=== PATIENT | female | born 1940 | race Caucasian/White ===

== ENCOUNTER 2016-08-17 17:18 | Inpatient (IN) | payer OTHER, MEDICARE ==
[2016-08-17] MEDS ORDERED: DIAZEPAM 10 MG/2 ML SYR IVP ONE (18:43)
[2016-08-17 18:52] LABS: % IMMATURE GRANULYOCYTES 0.3 % (0.0-1.1); ABSOLUTE IMMATURE GRANULOCYTES 0.02 10^3/uL (0.00-0.10); ADD DIFF? NO; ADD MORPH? NO; ADD SCAN? NO; ATYPICAL LYMPHOCYTE FLAG 10 (0-99); FRAGMENT RBC FLAG 0 (0-99); HEMATOCRIT 41.6 % (38.0-47.0); HEMOGLOBIN 14.6 g/dL (12.6-16.3); LEFT SHIFT FLG 0 (0-99); LIPEMIA HEMOLYSIS FLAG 90 (0-99); MEAN CELL HEMOGLOBIN 32.6 pg (27.9-34.1); MEAN CELL HEMOGLOBIN CONCENTR. 35.1 g/dL (32.4-36.7); MEAN CELL VOLUME 92.9 fL (81.5-99.8); MEAN PLATELET VOLUME 11.4 fL (8.7-11.7); PLATELET CLUMPS FLAG 0 (0-99); PLATELET COUNT 298 10^3/uL (150-400); RED BLOOD CELL COUNT 4.48 10^6/uL (4.18-5.33); RED CELL DISTRIBUTION WIDTH 13.3 % (11.5-15.2)
--- NOTE | 2016-08-17 18:53 | EDPHY ---
H & P Time Seen by Provider: 08/17/16 17:33 HPI/ROS: CHIEF COMPLAINT: Back pain, radiculopathy HISTORY OF PRESENT ILLNESS: 76-year-old female presents to the emergency department by ambulance with her complaining of ongoing back pain and radicular symptoms in her lower legs. Patient states that she has had ongoing pain in her back for over a year. She has had pain in her thighs and lower legs for the last year as well although this has been getting much worse over last several days. Today she went upstairs to try to take a nap in her room and she was unable to get herself up out of bed. She states that her legs just felt very weak. Her was unable to heel shaver and therefore 911 was called and she was brought into the emergency department by ambulance. She has no bowel or bladder incontinence. She describes no numbness or tingling in her lower legs. She has pain especially when she tries to move around. She denies chest pain or difficulty breathing. No reported trauma. No known activity to cause flare up of pain. She has seen her primary care provider for this and had an outpatient MRI done this past week which revealed multilevel moderate to severe degenerative disc disease and spinal stenosis. REVIEW OF SYSTEMS: Constitutional: No fever, no chills. Eyes: No double or blurry vision. ENT: No sore throat. Respiratory: No cough, no shortness of breath. Cardiac: No chest pain. Gastrointestinal: No abdominal pain, vomiting or diarrhea. Genitourinary: No dysuria. Musculoskeletal: Back pain as above. No neck pain Skin: No rashes. Neurological: No headache. Past Medical/Surgical History: Non-Hodgkin's lymphoma, chronic back pain, spinal stenosis Social History: Smoking Status: Never smoked Physical Exam: General Appearance: Alert, no distress. Eyes: Pupils equal and round. Extraocular motions are all intact. ENT: Mouth: Mucous membranes moist. Respiratory: No wheezing, rhonchi, or rales, lungs are clear to auscultation. Cardiovascular: Regular rate and rhythm. Gastrointestinal: Abdomen is soft and nontender, no masses, no rebound or guarding, bowel sounds normal. No CVA tenderness bilaterally. Neurological: Alert and oriented x 3, cranial nerves II through XII grossly intact Skin: Warm and dry, no rashes. Musculoskeletal: Nontender to palpate along the cervical, thoracic or lumbar spine. Neck is supple. Extremities: Full range of motion and no peripheral edema. Straight leg raise is negative bilaterally. Reflexes are 2+ and equal for lower extremities bilaterally. She has normal and equal strength for the lower extremities. Psychiatric: Patient is oriented X 3, there is no agitation. Constitutional: Initial Vital Signs Temperature (C) 36.4 C 08/17/16 17:26 Heart Rate 83 08/17/16 17:26 Respiratory Rate 18 08/17/16 17:26 Blood Pressure 133/75 H 08/17/16 17:26 O2 Sat (%) 92 08/17/16 17:26 O2 Delivery Mode Room Air Allergies/Adverse Reactions: MARCIANO Inhibitors Allergy (Mild, Verified 07/01/16 18:57) COUGH Sulfa (Sulfonamide Antibiotics) Allergy (Mild, Verified 07/01/16 18:57) Rash phenazopyridine HCl [From Pyridium] Allergy (Unknown, Verified 07/01/16 18:57) nitrofurantoin macrocrystalline [From Macrodantin] Allergy (Unverified 07/01/16 21:02) DOGS/CATS Allergy (Mild, Uncoded 10/02/12 15:19) ITCHY EYES/SCRATCHY THROAT/RUNNY NOSE ENVIRONMENTAL Allergy (Mild, Uncoded 10/02/12 15:19) ITCHY EYES/SCRATCHY THROAT/RUNNY NOSE SEASONAL Allergy (Mild, Uncoded 10/02/12 15:19) ITCHY EYES/RUNNY NOSE/SCRATCHY THROAT opiates Allergy (Uncoded 07/01/16 21:02) Constipation Home Medications: Medication Instructions Recorded Aspirin EC [Aspirin EC 81 mg (*)] 81 mg PO DAILY 07/01/16 Atorvastatin Calcium [Lipitor 40 40 mg PO HS 07/01/16 mg (*)] Chlorpheniramine Maleate 12 mg PO DAILY PRN 07/01/16 Cholecalciferol Vit D3 [Vitamin D3 2,000 units PO DAILY 07/01/16 (*)] Diazepam [Valium 5 MG (*)] 5 mg PO DAILY PRN 07/01/16 Ibuprofen [Motrin (*)] 400 mg PO PRN PRN 07/01/16 Omeprazole 20 mg PO DAILY 07/01/16 Potassium Cl [Klor-Con 20 meq (*)] 20 meq PO BID@,07/01/16 amLODIPine BESYLATE [Norvasc 5 mg 5 mg PO DAILY 07/01/16 (*)] Hydrochlorothiazide [HCTZ (*)] 25 mg PO DAILY #30 tab 07/02/16 Medical Decision Making ED Course/Re-evaluation: 76-year-old female presents to the emergency department by ambulance complaining of ongoing back pain and lumbar radiculopathy. The MRI was reviewed from August 12, 2016 and reveals multilevel moderate to severe degenerative disc disease resulting in moderate spinal stenosis. The patient was given 2.5 mg of IV Valium. The patient presented to the emergency department today because she felt weak in her legs and was unable to get herself up. I recommended admission to the hospital. She will be admitted to Dr. Manohar Alvarado, hospitalist. I also spoke with Dr. Santillan who was on-call for Neurosurgery who will see her in the morning. Differential Diagnosis: Back pain including but not limited to muscular pain, herniated disc, lumbar radiculopathy, spine fracture, intra-abdominal causes and urinary tract infection. - Data Points Laboratory Results: Laboratory Results 08/17/16 17:15 08/17/16 17:15 08/17/16 17:15 WBC 7.36 10^3/uL (3.80-9.50) RBC 4.48 10^6/uL (4.18-5.33) Hgb 14.6 g/dL (12.6-16.3) Hct 41.6 % (38.0-47.0) MCV 92.9 fL (81.5-99.8) MCH 32.6 pg (27.9-34.1) MCHC 35.1 g/dL (32.4-36.7) RDW 13.3 % (11.5-15.2) Plt Count 298 10^3/uL (150-400) MPV 11.4 fL (8.7-11.7) Neut % (Auto) 46.9 % (39.3-74.2) Lymph % (Auto) 44.2 % (15.0-45.0) [place] % (Auto) 6.8 % (4.5-13.0) Eos % (Auto) 0.7 % (0.6-7.6) Baso % (Auto) 1.1 % (0.3-1.7) Nucleat RBC Rel Count 0.0 % (0.0-0.2) Absolute Neuts (auto) 3.46 10^3/uL (1.70-6.50) Absolute Lymphs (auto) 3.25 H 10^3/uL (1.00-3.00) Absolute Monos (auto) 0.50 10^3/uL (0.30-0.80) Absolute Eos (auto) 0.05 10^3/uL (0.03-0.40) Absolute Basos (auto) 0.08 10^3/uL (0.02-0.10) Absolute Nucleated RBC 0.00 10^3/uL (0-0.01) Immature Gran % 0.3 % (0.0-1.1) Immature Gran # 0.02 10^3/uL (0.00-0.10) Sodium 132 L mEq/L (134-144) Potassium 4.5 mEq/L (3.5-5.2) Chloride 93 L mEq/L (97-110) Carbon Dioxide 26 mEq/l (22-31) Anion Gap 13 mEq/L (8-16) BUN 12 mg/dL (7-23) Creatinine 0.6 mg/dL (0.6-1.0) Estimated GFR > 60 Glucose 85 mg/dL (70-100) Calcium 10.1 mg/dL (8.5-10.4) Medications Given: Discontinued Medications Diazepam (Valium Injection) 2.5 mg IVP EDNOW ONE Stop: 08/17/16 18:44 Last Admin: 08/17/16 18:57 Dose: 2.5 mg Departure - Departure Disposition: [facility] Clinical Impression: Lumbar radiculopathy Back pain Qualifiers: Back pain location: low back pain Chronicity: chronic Back pain laterality: unspecified Sciatica presence: with sciatica Sciatica laterality: bilateral sciatica Qualifier Code: (M54.41) Lumbago with sciatica, right side Condition: Good
[2016-08-17 19:01] LABS: ANION GAP 13 mEq/L (8-16); CALCIUM 10.1 mg/dL (8.5-10.4); CARBON DIOXIDE 26 mEq/l (22-31); CHLORIDE 93 mEq/L (97-110); CREATININE 0.6 mg/dL (0.6-1.0); GLOMERULAR FILTRATION RATE > 60; GLUCOSE 85 mg/dL (70-100); POTASSIUM 4.5 mEq/L (3.5-5.2); SODIUM 132 mEq/L (134-144)
[2016-08-17] MEDS ORDERED: ONDANSETRON 4 MG/2 ML VIAL IVP PRN (19:40)
[2016-08-17] MEDS ORDERED: ONDANSETRON DISINTEGRATING 4 MG TAB PO PRN (19:40)
[2016-08-17] MEDS ORDERED: DIAZEPAM 5 MG TAB PO PRN ×2 (19:44→19:49)
[2016-08-17] MEDS ORDERED: CHLORPHENIRAMINE MALEATE 4 MG TAB PO PRN (19:49)
[2016-08-17] MEDS ORDERED: ATORVASTATIN CALCIUM 40 MG TAB PO SCH (21:00)
--- NOTE | 2016-08-17 21:14 | GHP ---
[f rep st] HISTORY AND PHYSICAL DATE OF ADMISSION: 08/17/2016 HISTORY OF PRESENT ILLNESS: The patient is a pleasant 76-year-old female with a history of non-Hodgk in lymphoma that is being followed, as opposed to treatment, who presents with back pain. It sounds like she had progressive back pain over months to years and it is getting worse. Recently, this prom pted her primary care physician to get an MRI done just 5 days ago that showed multilevel disk hernia tion with canal stenosis. Today, she went upstairs to take a nap and she was unable to get up. She felt some generalized weakness and pain in her legs. She denies focal specific weakness. She has no t had saddle anesthesia. She has not had bladder or bowel incontinence. She does not have B symptom s such as weight loss or drenching night sweats. 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 Today, she sought care because after her nap she was really just too painful to get up. She has no n umbness and tingling in her legs. She has pain with moving. She has an appointment with Neurosurger nila in the beginning of September. REVIEW OF SYSTEMS: A complete 10-point review of systems was conducted and was negative, except as n oted in the HPI. PAST MEDICAL HISTORY: Non-Hodgkin lymphoma, allergic rhinitis, hypertension hyperlipidemia. SOCIAL HISTORY: Nonsmoker. Has two to three drinks daily. No history of withdrawal. FAMILY HISTORY: Reviewed and unremarkable. ALLERGIES: MARCIANO inhibitors and sulfa, as well as Pyridium, nitrofurantoin, dogs, cats, environmental, seasonal, and opiates. She claim she is intolerant of all opiates. MEDICATIONS: Home medications list is potassium chloride, omeprazole, ibuprofen, hydrochlorothiazide , Valium (which she takes 2.5 mg of occasionally), vitamin D3, amlodipine, chlorpheniramine, atorvast atin, and aspirin. PHYSICAL EXAM: PRESENTING VITAL SIGNS: Temperature 36.7, blood pressure 131/69, pulse 77, breathing 20 times a minute, 94% on room air. GENERAL: In no acute distress. HEENT: Sclerae anicteric. Or opharynx clear. Mucous membranes are moist. NECK: Supple without lymphadenopathy or JVD. LUNGS: Clear to auscultation bilaterally. HEART: S1, S2. ABDOMEN: Soft, nontender, nondistended. LOWER EXTREMITIES: Without edema. Calves are nontender. SKIN: Without rash. NEUROLOGIC: Grossly nonfo romaine. She has 5/5 strength bilaterally. She has noted a dullness to sensation. Her DTRs are present at the patellae. LABS: White count 7.4, hematocrit 42, platelets are 298,000. Sodium 132, potassium 4.5, chloride 93 , bicarb 26, BUN 12, creatinine 0.6, glucose 85. MRI images are as discussed above. There is no imaging here. I have discussed the case with Danyelle marc. ASSESSMENT AND PLAN: This is a 76-year-old female with small lymphoma and low back pain secondary to disk herniations and spinal stenosis here with intractable pain. 1. Pain. The patient has pretty significant pain impacting her activities of daily living and is be ing admitted for pain control. At this point, there are no concerning neurologic findings and the re cent MRI does shows the possible need for surgery, but no impending emergency. a. I do not suspect that this is secondary to Hodgkin disease is there is no evidence of mass around the spine. b. The patient is intolerant of narcotics. Therefore, I have scheduled Tylenol, scheduled ibuprofen with p.r.n. Valium. c. Neurosurgery will see her in the morning. 2. Lymphoma: This is chronic and followed. 3. Alcohol use. I think the patient has been low to moderate risk for alcohol withdrawal. I will p ut her on p.r.n. benzodiazepine. 4. Prophylaxis. Pharmacologic prophylaxis is indicated if in the hospital longer than 24 hours. DISPOSITION: Observation status. /[id number]/MODL
[2016-08-17] MEDS: ACETAMINOPHEN 500 MG TAB PO SCH (21:31)
[2016-08-17] MEDS: IBUPROFEN 200 MG TAB PO SCH (21:32)
[2016-08-18] MEDS: IBUPROFEN 200 MG TAB PO SCH ×3 (01:20→11:07)
[2016-08-18] MEDS: ACETAMINOPHEN 500 MG TAB PO SCH (04:47)
[2016-08-18] MEDS: POTASSIUM CL 20 MEQ TAB PO SCH ×2 (08:35→12:29)
[2016-08-18 08:36] VITALS: BP 122/58
[2016-08-18 08:59] VITALS: PULSE 67; RESP 15; TEMP 97.5; O2SAT 96
[2016-08-18] MEDS ORDERED: HYDROCHLOROTHIAZIDE 25 MG TAB PO SCH (09:00)
[2016-08-18] MEDS ORDERED: amLODIPine BESYLATE 5 MG TAB PO SCH (09:00)
[2016-08-18] MEDS ORDERED: CHOLECALCIFEROL VIT D3 1,000 UNITS TAB PO SCH (09:00)
[2016-08-18] MEDS ORDERED: PANTOPRAZOLE SODIUM 40 MG TAB PO SCH (09:00)
[2016-08-18] MEDS ORDERED: oxyCODONE IR 5 MG TAB PO PRN (09:37)
[2016-08-18] MEDS ORDERED: DOCUSATE SODIUM 100 MG CAP PO SCH (10:00)
--- NOTE | 2016-08-18 10:30 | GCON ---
[f rep st] CONSULTATION DATE OF CONSULTATION: 08/18/2016 REASON FOR CONSULTATION: Acute on chronic low back pain with lower extremity weakness and pain. HISTORY OF PRESENT ILLNESS: Ms. Lyle is a 76-year-old woman with a history of non-Hodgkin's lymphoma that is been currently being followed as opposed to treatment and presents with acute on chronic low back pain with acute onset of difficulty with ambulation because of weakness in her legs. She has had known history of low back pain, which has been chronic in its nature for several years. She has undergone a previous spinal injections spinal at [facility] 2-3 years ago from which she did quite well. She has been noting worsening low back pain and went to go see her primary care doctor, Dr. Holliday, who ordered an MRI scan of the lumbar spine approximately 5 days ago which demonstrated some scoliosis and multilevel disk degeneration with canal stenosis. The patient states that she went upstairs on August 17 to take a nap and noted that she was unable to get up because of ongoing pain in her legs, as well as weakness in her legs. No associated bowel or bladder incontinence. No saddle anesthesia. She has generalized weakness in her legs. She is very nervous because she is scheduled to go to a trip in the [facility] on August 25 and has a scheduled appointment with Dr. Frankie Delcid in September. She presented to the emergency department because of her concerns of her back pain and lower extremity symptoms and MRI findings. Today, she states that her pain feels somewhat better and her back pain is somewhat better; however, she does have the ongoing chronic low back pain and bilateral generalized weakness and nondermatomal pain in her legs. REVIEW OF SYSTEMS: Complete 10-point review of systems from the patient's intake form were reviewed by myself and significant only for those noted above in the HPI. PAST MEDICAL HISTORY: 1. Non-Hodgkin's lymphoma. 2. Allergic rhinitis. 3. Hypertensive hyperlipidemia. 4. Arthritis. SOCIAL HISTORY: She is a nonsmoker and has approximately 2-3 alcoholic beverages per day. She lives here in the [facility]. FAMILY HISTORY: Negative for any intracranial aneurysms. ALLERGIES: 1. MARCIANO-inhibitors. 2. Sulfa. 3. Pyridium. 4. Nitrofurantoin. 5. Dogs. 6. Cats. 7. Environment. 8. Seasonal. 9. Opioids cause a lot of constipation and sedation. MEDICATIONS PRIOR TO ADMISSION: 1. Potassium chloride. 2. Omeprazole. 3. Ibuprofen. 4. Hydrochlorothiazide. 5. Valium. 6. Vitamin D3. 7. Amlodipine. 8. Chlorpheniramine. 9. Atorvastatin. 10. Aspirin. PHYSICAL EXAMINATION: VITAL SIGNS: Blood pressure is 122/58, heart rate is 67 , respiratory rate is 15. She is satting at 96% on room air temperature is 36.4. GENERAL: The patient is sitting in a chair and has no acute distress. She is quite pleasant and cooperative with the examination, is currently drinking coffee and reading a book. Her affect is appropriate. HEENT: Head is atraumatic, normocephalic. Pupils are equally round and reactive to light bilaterally. Extraocular movements are intact and sclerae are anicteric. Oropharynx is moist. CARDIOVASCULAR AND PULMONARY: Deferred. 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 Sensation: She has intact sensation to light touch throughout all major dermatomes of the bilateral upper and lower extremities throughout. Reflexes are 2+ at the bilateral brachioradialis and patella. Other: She has negative Christiano's and no Babinski. She has negative straight leg raise testing. MEDICAL DECISION-MAKING: White count 7.36, platelets 298, hematocrit 41.6. Sodium 132, potassium 4.5. MRI of the lumbar spine completed without contrast completed on 08/12/2016 on the [facility] PAC system and reviewed by myself demonstrates degenerative disease throughout the lower thoracolumbar spine with an associated scoliosis. There is multilevel moderate to severe degenerative disk disease from T11-T12 through L4-5 with superimposed osteophytes and disk herniations. There is multilevel moderate central canal stenosis, worse at the L3-4 level and moderate to severe bilateral neuroforaminal stenosis, worse on the right at T12-L1, L1-L2, L4-L5, and left L4 -5. ASSESSMENT AND PLAN: Ms. Lyle is a very pleasant 76-year-old woman with a history of non-Hodgkin's lymphoma, who presents with acute on chronic worsening lumbar back pain and generalized weakness and pain in her lower extremities in a nondermatomal pattern. She has evidence of scoliosis throughout her thoracolumbar spine with no evidence of severe central stenosis, but moderate stenosis, worse at the L3-4 level and foraminal stenosis at multiple levels throughout. At this point, the patient's neurological exam is essentially fairly normal. She appears to be somewhat anxious about her acute onset of weakness in her legs and difficulty with moving; however, she is also scheduled to take [place] cruise and wants to ensure that her pain is well controlled prior to going on this trip. She has had a prior injection with [facility] approximately 3 years ago from which she did quite well and at this point, I have explained to her that nonoperative interventions are probably the best way to initiate her treatment as there are no acute concerning findings on MRI scan to want any type of urgent surgical intervention. I recommended a trial of opiates and therefore, have ordered 2.5 mg of oxycodone to be tried for the patient. She is concerned about constipation therefore, I have also added MiraLAX and some Colace. She will try these medications while in the hospital and if this improves, then she can go home with this low dose medication for pain control. I have also encouraged that she call [facility] again for a redo consultation to see if she is a candidate for another spinal injection. She will then call our office and change the clinic appointment to see myself rather than Dr. Delcid sometime in September for followup after she has had the injection. All of her questions were answered to her satisfaction. She has been seen by PT /OT Therapy and cleared per the nursing staff. If her pain is well controlled and she is doing quite well, she can likely be discharged with outpatient followup. I will order AP lateral flexion extension lumbar spine x-rays however , prior to her discharge as her last lumbar spine x-rays were completed in 2011 , and we would like to revisit the degree of scoliosis that she has present. Thank you for this consultation. Will continue to follow along with your patient while she is in the hospital. /[id number]/MODL MTDD
--- NOTE | 2016-08-18 12:44 | DX ---
Lumbar Spine, 4 Views, at 11:15 a.m. Clinical History: 76-year-old female with low back pain and a known scoliosis with some radicular sym ptoms. Comparison Studies: Lumbar spine radiographs dated January 29, 2012, and MR imaging of the lumbar spine dated August 12, 2016. Findings: Since 2011, there has been progression in the biphasic thoracolumbar scoliosis. There is a levothoracolumbar junction component measuring 26 degrees, and a lower dextrolumbar component measur ing 18 degrees. There is slight left lateral offset of L2 above L3, and slight right lateral offset o f L3 above L4. There moderate T11-T12 degenerative disk space narrowing, and severe degenerative disk space narrowing from T12-L1 through L5-S1. There is no facet malalignment, although there is facet h ypertrophy. There are no pars interarticularis defects appreciated. There is mural calcification of t he abdominal aorta, normal in size, measuring 18 mm in diameter. The patient has bilateral hip arthro plasties, although the left hip arthroplasty is the only visible one currently on the included films. Impression: Biphasic thoracolumbar scoliosis with multilevel advanced degenerative changes, as john led above and described as well on recent MR imaging.
--- NOTE | 2016-08-18 14:31 | GDS ---
[f rep st] DISCHARGE SUMMARY DISCHARGE DIAGNOSES: 1. Vfmnh-uz-kycapey back pain. 2. History of Hodgkin lymphoma. 3. Chronic alcohol use. CONSULTATIONS: Dr. Santillan of Neurosurgery. STUDIES AND PROCEDURES: Lumbar spine x-ray. PHYSICAL EXAM: GENERAL: The patient is alert and oriented, in no acute distress. VITAL SIGNS: Afe brile at 36.4 pulse 67, respiratory rate 15, blood pressure is 122/58, she is saturating greater than 90% on room air. I have seen and evaluated the patient on the day of discharge. HOSPITAL COURSE: Ms. Lyle is a 76-year-old female who presented to the emergency room with complai nts of back pain. She was evaluated and diagnosed with: 1. [id number] back pain. During this hospitalization, [facility] as well as a lumbar spine x-ray. The patient does not have any surgical intervention need s at this time. She will continue treatment with supportive management and will follow up in the out patient setting with the neurosurgeon of her choice. 2. History of Hodgkin lymphoma. This is stable and continue followup in the outpatient setting. 3. Chronic alcohol use. The patient does not have any signs of withdrawal or needing supportive man agement. DISPOSITION: Ms. Lyle will be discharged home independently. FOLLOWUP: Will be with the neurosurgeon of her choice, as well as her primary care physician, Dr. Daphnie Holliday. DISCHARGE MEDICATIONS: I have provided the patient a prescription for oxycodone IR 2.5 mg every 4 ho urs as needed for pain. /[id number]/MODL
[2016-08-19] MEDS ORDERED: POLYETHYLENE GLYCOL 3350 17 GM PKT PO SCH (09:00)
== END 2016-08-18 13:26 | disposition home or self-care (01) | DRG 552 ==
LOC: EDUNIT# → F3N 19:36
PROVIDERS: ADMIT Internal Medicine; ATTEND Internal Medicine
DX: M51.15 Intervertebral disc disorders with radiculopathy, thoracolumbar region (principal); M41.9 Scoliosis, unspecified; C85.90 Non-Hodgkin lymphoma, unspecified, unspecified site; I10 Essential (primary) hypertension; E78.5 Hyperlipidemia, unspecified
CPT/HCPCS: 96374; 97161-GP; 97165-GO; G8978-GP-CI; G8979-GP-CI; G8987-GO-CI; G8988-GO-CH; G8989-GO-CH

== ENCOUNTER 2016-09-10 17:14 | Inpatient (IN) | payer OTHER, MEDICARE ==
[2016-09-10] MEDS ORDERED: NS 500 ML IV ONE (17:38)
[2016-09-10] MEDS ORDERED: LORazepam 2 MG/ML INJ IVP ONE (17:39)
--- NOTE | 2016-09-10 17:45 | EDPHY ---
H & P Time Seen by Provider: 09/10/16 17:27 HPI/ROS: HPI Numbness in fingers, degenerative cervical spine. 76-year-old female by private vehicle with her . This patient was seen by her primary care physician, Dr. Holliday, at the [facility] earlier today with complaint of numbness in all of her digits in both hands. She denies weakness in her hands. She reports that this has been going on since early August. Dr. Holliday ordered an MRI of the cervical spine, this showed severe cervical canal stenosis. He called the patient and told her to come to the emergency department for a neurosurgical consult. ROS: Constitutional: No fever, no chills. No weakness. Eyes: No discharge. No changes in vision. ENT: No sore throat. No nasal congestion or rhinorrhea. Respiratory: No cough. No shortness of breath. Cardiac: No chest pain, no palpitations. Gastrointestinal: No abdominal pain, no vomiting, no diarrhea. Genitourinary: No hematuria. No dysuria or increased frequency with urination. Musculoskeletal: No back pain. No neck pain. No myalgias or arthralgias. Skin: No rashes. Neurological: No headache. As above. Past medical history: History of Hodgkin's lymphoma, anxiety, chronic daily alcohol use, acute on chronic back pain, hypertension, hyperlipidemia. As above. Social history: Nonsmoker. As above. Here with her . Physical Exam: General Appearance: Alert, no distress. This patient is responding to questions appropriately and in full sentences. This patient appears well- hydrated and well-nourished. Eyes: Pupils equal and round no pallor or injection. No lid edema, erythema or injection. Respiratory: There are no retractions, lungs are clear to auscultation with good air movement bilaterally. Cardiovascular: Regular rate and rhythm. No murmur. Gastrointestinal: Abdomen is soft and nontender, no masses, bowel sounds normal. No focal tenderness at McBurney's point. No Parra sign. Neurological: Motor sensory function is grossly intact. Vague loss of light touch sensation in all digits in both hands. Axillary, median, radial and ulnar nerve motor function intact. Cranial nerves are normal. Gait is normal. Skin: Warm and dry, no rashes. Musculoskeletal: Neck is supple and nontender. Extremities are symmetrical. All joints range without pain or impingement. Psychiatric: No agitation. No depression. Database: EKG: Imaging: Procedures: Emergency department course: IV was placed. She was started on IV normal saline with 500 cc to be given over 1 hour. She was given 1 mg of IV Ativan for anxiety initially. Results of her MRI of cervical spine from today were reviewed, severe degenerative changes noted as well as severe central canal stenosis at C2-C3, C3-C4, C5-C6 with severe cord compression and possible early edema at C3-C4. 6:10 p.m., spoke with on-call spinal surgeon Dr. Frankie Delcid. He reviewed the patient's cervical spine MRIs. He examined the patient in the emergency department. Plan is for admission to the hospitalist service and he will take her to the OR in the morning for decompression of her spinal cord. This plan was discussed with the patient and her . All of their questions were answered. 6:20 p.m., spoke with on-call hospitalist Dr. Daniel Alvarado. Case discussed in detail with him. He accepts the patient for admission. Differential Diagnosis: The differential diagnosis on this patient includes but is not limited to degenerative spinal disease. This represents a partial list of diagnoses considered. These considerations are based on history, physical exam, past history, reassessment and diagnostic testing. Smoking Status: Never smoked Constitutional: Initial Vital Signs Temperature (C) 36.4 C 09/10/16 17:16 Heart Rate 81 09/10/16 17:16 Respiratory Rate 20 09/10/16 17:16 Blood Pressure 134/71 H 09/10/16 17:16 O2 Sat (%) 97 09/10/16 17:16 O2 Delivery Mode Room Air Allergies/Adverse Reactions: MARCIANO Inhibitors Allergy (Mild, Verified 07/01/16 18:57) COUGH Sulfa (Sulfonamide Antibiotics) Allergy (Mild, Verified 07/01/16 18:57) Rash phenazopyridine HCl [From Pyridium] Allergy (Unknown, Verified 07/01/16 18:57) nitrofurantoin macrocrystalline [From Macrodantin] Allergy (Verified 08/17/16 19 :53) opiates Allergy (Intermediate, Uncoded 08/17/16 19:53) Constipation DOGS/CATS Allergy (Mild, Uncoded 08/17/16 19:53) ITCHY EYES/SCRATCHY THROAT/RUNNY NOSE ENVIRONMENTAL Allergy (Mild, Uncoded 08/17/16 19:53) ITCHY EYES/SCRATCHY THROAT/RUNNY NOSE SEASONAL Allergy (Mild, Uncoded 08/17/16 19:53) ITCHY EYES/RUNNY NOSE/SCRATCHY THROAT Home Medications: Medication Instructions Recorded Aspirin EC [Aspirin EC 81 mg (*)] 81 mg PO DAILY 07/01/16 Atorvastatin Calcium [Lipitor 40 40 mg PO HS 07/01/16 mg (*)] Chlorpheniramine Maleate 12 mg PO DAILY PRN 07/01/16 Cholecalciferol Vit D3 [Vitamin D3 2,000 units PO DAILY 07/01/16 (*)] Diazepam [Valium 5 MG (*)] 5 mg PO DAILY PRN 07/01/16 Ibuprofen [Motrin (*)] 400 mg PO PRN PRN 07/01/16 Omeprazole 20 mg PO DAILY 07/01/16 Potassium Cl [Klor-Con 20 meq (*)] 20 meq PO BID@09,12 07/01/16 amLODIPine BESYLATE [Norvasc 5 mg 5 mg PO DAILY 07/01/16 (*)] Hydrochlorothiazide [HCTZ (*)] 25 mg PO DAILY #30 tab 07/02/16 Acetaminophen [Tylenol ES 500 mg 1,000 mg PO Q8 #0 tab 08/18/16 (*)] Medical Decision Making - Data Points Medications Given: Discontinued Medications Sodium Chloride (Ns) 500 mls @ 0 mls/hr IV ONCE ONE PRN Reason: Wide Open Stop: 09/10/16 17:39 Last Admin: 09/10/16 18:00 Dose: 500 mls Sodium Chloride (Ns) 1,000 mls @ 75 mls/hr IV CONT ABEL Stop: 03/10/17 07:14 Last Admin: 09/11/16 07:05 Dose: 1,000 mls Lorazepam (Ativan Injection) 1 mg IVP EDNOW ONE Stop: 09/10/16 17:40 Last Admin: 09/10/16 18:00 Dose: 1 mg Departure - Departure Disposition: [facility] Acute Clinical Impression: Cervical spine degeneration, Spinal stenosis of cervical region
[2016-09-10 18:51] LABS: % IMMATURE GRANULYOCYTES 0.3 % (0.0-1.1); ABSOLUTE IMMATURE GRANULOCYTES 0.02 10^3/uL (0.00-0.10); ADD DIFF? NO; ADD MORPH? NO; ADD SCAN? NO; ATYPICAL LYMPHOCYTE FLAG 0 (0-99); FRAGMENT RBC FLAG 0 (0-99); HEMATOCRIT 39.9 % (38.0-47.0); HEMOGLOBIN 14.5 g/dL (12.6-16.3); LEFT SHIFT FLG 0 (0-99); LIPEMIA HEMOLYSIS FLAG 90 (0-99); MEAN CELL HEMOGLOBIN 33.5 pg (27.9-34.1); MEAN CELL HEMOGLOBIN CONCENTR. 36.3 g/dL (32.4-36.7); MEAN CELL VOLUME 92.1 fL (81.5-99.8); MEAN PLATELET VOLUME 10.7 fL (8.7-11.7); PLATELET CLUMPS FLAG 20 (0-99); PLATELET COUNT 312 10^3/uL (150-400); RED BLOOD CELL COUNT 4.33 10^6/uL (4.18-5.33); RED CELL DISTRIBUTION WIDTH 14.2 % (11.5-15.2)
[2016-09-10 19:00] LABS: INR 0.94 (0.83-1.16); PROTIME(PATIENT) 12.5 SEC (12.0-15.0)
[2016-09-10 19:01] LABS: APTT 26.4 SEC (23.0-38.0)
[2016-09-10 19:11] LABS: ANION GAP 14 mEq/L (8-16); CALCIUM 10.3 mg/dL (8.5-10.4); CARBON DIOXIDE 22 mEq/l (22-31); CHLORIDE 92 mEq/L (97-110); CREATININE 0.5 mg/dL (0.6-1.0); GLOMERULAR FILTRATION RATE > 60; GLUCOSE 86 mg/dL (70-100); POTASSIUM 4.2 mEq/L (3.5-5.2); SODIUM 128 mEq/L (134-144)
[2016-09-10] MEDS ORDERED: ONDANSETRON 4 MG/2 ML VIAL IVP PRN (19:22)
[2016-09-10] MEDS ORDERED: ONDANSETRON DISINTEGRATING 4 MG TAB PO PRN (19:22)
--- NOTE | 2016-09-10 20:55 | GHP ---
[f rep st] HISTORY AND PHYSICAL DATE OF ADMISSION: 09/10/2016 HISTORY OF PRESENT ILLNESS: The patient is a 76-year-old female, known lumbar stenosis and smolderin g non-Hodgkin lymphoma, not currently getting treatment who had an outpatient MRI of her cervical spi ne today given some upper extremity numbness and was found to have fairly significant cervical spine disease with moderate to severe degenerative disc disease with severe cord compression, possible aamir y cord edema at C3-C4. She was referred to the ER for further evaluation. When I speak with her, edison malena said she has had some upper extremity weakness and numbness that is generalized starting with numbn ess in the fingertips. She has not had bowel or bladder incontinence. She has lower extremity weakn ess which dates back to several weeks ago that is unchanged. She has not had falls. She has not had fever, chills, nausea, vomiting, diarrhea. She does take an aspirin daily. Last taken this morning . She is not on blood thinners. Regarding her lymphoma, she has a normal CBC. It is being followed. She is not thrombocytopenic. H er coags are normal today. She is able to walk up 3 flights of stairs which she has in her home regularly without shortness of b reath or chest pain. She has no previous history of cardiac problems. REVIEW OF SYSTEMS: Complete 10-point review of systems conducted negative except as noted in the HPI . PAST MEDICAL HISTORY: 1. Lymphoma as above. 2. Degenerative joint disease. 3. Hypertension. 4. Hyperlipidemia. SOCIAL HISTORY: Nonsmoker, 2 or 3 drinks daily, no history of withdrawal. FAMILY HISTORY: Reviewed and unremarkable. ALLERGIES: MARCIANO inhibitors and sulfa, as well as Pyridium, nitrofurantoin, dogs, cats, environmental seasonal, opiates. She claims she is intolerant of all opiates. HOME MEDICATIONS: Amlodipine, Norvasc, enteric-coated aspirin 81, chlorpheniramine, vitamin D3, ibup rofen, omeprazole, potassium chloride, atorvastatin, diazepam. PHYSICAL EXAMINATION: VITAL SIGNS: Temp 36.4, blood pressure 134/71, pulse 81, breathing 20 times a minute, 97% on room air. GENERAL: In no acute distress. HEENT: Sclerae anicteric. Oropharynx cl ear. Mucous membranes moist. NECK: Supple without lymphadenopathy or JVD. LUNGS: Clear to auscul tation bilaterally. HEART: S1, S2. ABDOMEN: Soft, nontender, nondistended. LOWER EXTREMITIES: W ithout edema. Calves nontender. SKIN: Without rash. NEUROLOGIC: Her upper extremity strength is 5/5 bilaterally. Her sensation is intact bilaterally in upper and lower extremities. Lower extremit y strength is 5/5 bilaterally. LABS: Today white count 6.8, hematocrit 39.9. Platelets are 312,000. Coags are normal. Sodium 128 , potassium 4.2, chloride 92, bicarb 22, BUN 12, creatinine 0.5, glucose 86. TEST DATA: I reviewed the C-spine, MRI findings. I discussed the case with Dr. Blade Woods as well as Dr. Frankie Delcid. ASSESSMENT/PLAN: 76-year-old female presents with severe cervical spine disease. 1. Cervical spine disease. She has minimal to no neurologic symptoms, but her MRI is concerning. S he will undergo surgery tomorrow. I will make her n.p.o. past midnight. 2. Hyponatremia. This is mild likely secondary to hydrochlorothiazide therapy. It is asymptomatic. She was hyponatremic the last time she was here. At this point in time, I would recommend holding h er hydrochlorothiazide and following it daily. This is not a contraindication to surgery at this annie e. 3. Preoperative cardiac evaluation. The patient has ability to achieve greater than 4 METs. She ca n proceed to surgery as is without further workup or intervention. 4. Lymphoma. This is a stable issue with a normal CBC, represents no additional risk for surgery. 5. Hypertension. We will continue amlodipine. Hold her hydrochlorothiazide. 6. Hyperlipidemia. Continue her statin. 7. Prophylaxis. Will give her TEDS today. She is intolerant of SCDs and pharmacologic prophylaxis is contraindicated given her upcoming surgery. 8. Disposition: Inpatient status. /[id number]/MODL
[2016-09-10] MEDS ORDERED: CHLORPHENIRAMINE MALEATE 4 MG TAB PO PRN (21:26)
[2016-09-10] MEDS: ACETAMINOPHEN 500 MG TAB PO SCH (21:48)
[2016-09-10] MEDS: DIAZEPAM 5 MG TAB PO PRN (21:49)
[2016-09-10] MEDS: ATORVASTATIN CALCIUM 40 MG TAB PO SCH (21:49)
[2016-09-11] MEDS: HYDROmorphONE/DILAUDID 1 MG/ML SYR IVP PRN ×2 (00:33→03:00)
--- NOTE | 2016-09-11 05:10 | GCON ---
[f rep st] CONSULTATION DATE OF CONSULTATION: 09/10/2016 TIME SEEN: 1800 in the emergency room. HOSPITAL COURSEHISTORYMAJOR MEDICAL FINDINGS: The patient is a 76-year-old female, who was having di fficulty with increasing numbness in her hands, as well as increasing weakness since early August. She saw her primary care physician, Dr. Holliday, who ordered an MRI of her cervical spine, which demo nstrated severe cervical canal stenosis with cord compression. He recommended her to come to the [facility] for further evaluation. Upon seeing the patient in the emergency room, she states that t he numbness and weakness in her hand has gotten so bad that she is unable to put her bra on or her ta ke her gas cap off her car. She also has low back pain, as well as groin pain and anterior thigh josef n. She denies any loss of bowel or bladder control. Denies any diffuse arm pain. REVIEW OF SYSTEMS: Review of systems is negative other than what is stated in the HPI. Please perti nent negatives, pertinent positives. PAST MEDICAL HISTORY: Significant for non-Hodgkin's lymphoma, anxiety, chronic daily alcohol use, ac sterling on chronic back pain, hypertension, hyperlipidemia. PAST SURGICAL HISTORY: Significant for bilateral hip replacements. SOCIAL HISTORY: Patient is a nonsmoker. She is present with her . She does drink alcohol da jayy. FAMILY HISTORY: The patient states her mom develop CHF late in life. She has no history about her f ather. ALLERGIES: MARCIANO inhibitors, sulfa, Pyridium, nitrofurantoin, dogs, cats, and seasonal allergies. MEDICATIONS: Home medications include aspirin 81 mg 1 p.o. daily, Lipitor 40 mg 1 p.o. q.h.s., vitam in D3 2000 units 1 p.o. daily, Valium 5 mg 1 p.o. p.r.n. muscle spasms, Motrin 4 mg p.o. p.r.n., amlo dipine 5 mg 1 p.o. daily, hydrochlorothiazide 25 mg 1 p.o. daily, Tylenol 1000 mg 1 p.o. q.8 hours p. r.n. pain, Colace 100 mg 1 p.o. b.i.d. , MiraLAX daily 1 packet, oxycodone 2.5 mg 1 p.o. q.4 hours p .r.n. pain. PHYSICAL EXAM: VITALS: Temp 36.4, heart rate is 81, respiratory rate is 20, BP is 134/71, and she i s 97% on room air. GENERAL: Patient is in no acute distress. She is alert and oriented x3. She an swers questions appropriately. Affect is appropriate for the given situation. NEUROLOGIC: Cranial nerves 2 through 12 are grossly intact. EOMI and PERRLA. The patient is a 5/5 in her bilateral deltoids, in her right triceps she is 5/5, in her left triceps she is 5-/5. She is 5/5 in her biceps bilaterally. She is 5/5 in her wrist flexors, extensors, interossei, and dairy clerk. Rufino guy does have diffuse atrophy over the dorsal part of her hand in her thenar eminence. The patient is 5/5 in her iliopsoas bilaterally, quadriceps, hamstrings bilaterally. Dorsiflexion and plantar flexi on bilaterally she does have some left 5-/5 EHL weakness, on the right her EHL is 5/5. Reflexes: Positive Tanner's on the left. Negative clonus. Negative Babinski bilaterally. She mc s have brisk patellar 3+ reflexes on the left, it is 2/4 on the right. DIAGNOSTIC REVIEW: Patient underwent a cervical spine MRI, which demonstrated severe canal stenosis ranging from C2-C7 with evidence of cord compression. ASSESSMENT: The patient is a 76-year-old female, who has been having progressive weakness and numbne ss in her hands over the last few weeks. She underwent MRI, which demonstrated severe canal stenosis with cord compression. She was referred to the emergency room. She was examined both by Dr. Delcid and myself, and at this point in time, given her progressive worsening symptoms, we will admit to [facility] and plan for posterior cervical laminectomy and fusion from C2 to C7. Will admit to Medicine given her history of hypertension and lymphoma to make sure she is cleared to undergo general anesthesia. Optimize pain management. Recommend q.4 hours neuro checks. If the patient has any change in neurologic or motor exam, please notify Neurosurgery. /[id number]/MODL
[2016-09-11] MEDS: ACETAMINOPHEN 500 MG TAB PO SCH ×3 (05:11→23:24)
[2016-09-11 05:12] LABS: % IMMATURE GRANULYOCYTES 0.2 % (0.0-1.1); ABSOLUTE IMMATURE GRANULOCYTES 0.01 10^3/uL (0.00-0.10); ADD DIFF? NO; ADD MORPH? NO; ADD SCAN? NO; ATYPICAL LYMPHOCYTE FLAG 70 (0-99); FRAGMENT RBC FLAG 10 (0-99); HEMATOCRIT 34.4 % (38.0-47.0); LEFT SHIFT FLG 0 (0-99); LIPEMIA HEMOLYSIS FLAG 90 (0-99); MEAN CELL HEMOGLOBIN 33.1 pg (27.9-34.1); MEAN CELL HEMOGLOBIN CONCENTR. 34.9 g/dL (32.4-36.7); MEAN CELL VOLUME 94.8 fL (81.5-99.8); MEAN PLATELET VOLUME 10.7 fL (8.7-11.7); PLATELET CLUMPS FLAG 10 (0-99); PLATELET COUNT 283 10^3/uL (150-400); RED BLOOD CELL COUNT 3.63 10^6/uL (4.18-5.33); RED CELL DISTRIBUTION WIDTH 14.4 % (11.5-15.2)
[2016-09-11 05:20] LABS: INR 1.05 (0.83-1.16); PROTIME(PATIENT) 13.6 SEC (12.0-15.0)
[2016-09-11 05:21] LABS: APTT 28.6 SEC (23.0-38.0)
[2016-09-11 05:22] LABS: ANION GAP 6 mEq/L (8-16); CALCIUM 9.3 mg/dL (8.5-10.4); CARBON DIOXIDE 27 mEq/l (22-31); CHLORIDE 97 mEq/L (97-110); CREATININE 0.5 mg/dL (0.6-1.0); GLOMERULAR FILTRATION RATE > 60; GLUCOSE 95 mg/dL (70-100); POTASSIUM 4.5 mEq/L (3.5-5.2); SODIUM 130 mEq/L (134-144)
[2016-09-11] MEDS ORDERED: NS 1,000 ML IV SCH (07:15)
[2016-09-11] MEDS ORDERED: BUPIVACAINE/EPI 0.25% 30 ML SDV ONE (07:26)
[2016-09-11] MEDS ORDERED: BACITRACIN 50,000 UNITS/10 ML SYR IRR ONE (07:26)
[2016-09-11] MEDS ORDERED: THROMBIN (RECOMBINANT) 5,000 UNIT VIAL TP ONE (07:26)
[2016-09-11] MEDS ORDERED: ceFAZolin 2 GM/DEXTROSE 100 ML IV ONE (07:26)
[2016-09-11] MEDS ORDERED: ceFAZolin 2 GM in D5W 100 ML IV ONE (07:30)
--- NOTE | 2016-09-11 07:31 | NEUSURGPN ---
Assessment/Plan: Assessment: 76 yo female with severe cervical central stenosis with hand numbness and weakness Plan: -plan for surgery this am of a PSF from C2-C7 with laminectomy C3-C7 -Dr Delcid notified from Dr Alvarado that she is cleared for surgery last night -Pt to OR -orders in place -PT/OT ordered -pt fit for a post op collar -pt consented and marked -call with any questions or concerns Subjective: Awake and alert. NAD. Pt with neck pain. No neck/chest/abd or gu complaints. Objective: AAO x 3, PERRLA/EOMI no droop CN 2-12 grossly intact +lt touch 5/5 BUE/BLE = except left triceps at 5-/5 +cms/nv intact x 4 Neuro Check Frequency: per routine Urinary Catheter in Place: No - Physician Discussed Patient with DrAmarilis: Bhavin Patient Seen by : Bhavin Neurosurgery Physical Exam - Vitals, I&O, Labs I and O 09/10/16 09/11/16 09/12/16 05:59 05:59 05:59 Intake Total 500 Balance 500 Weight 52.163 kg Intake: Oral (ml) 0 IV Infused (ml) 500 Other: Number of Voids 1 Toilet 1 Vital Signs Temp Pulse Resp BP Pulse Ox 36.5 C 78 18 153/80 H 98 09/10/16 20:20 09/10/16 20:20 09/10/16 20:20 09/10/16 20:20 09/10/16 20:20 Laboratory Results 09/11/16 04:44 09/11/16 04:44 ICD10 Worksheet Patient Problems: Problems Problem Status Diagnosed Cervical spine degeneration Acute Spinal stenosis of cervical region Acute Back pain Acute Dehydration Acute Hyponatremia Acute Lower abdominal pain Acute Lumbar radiculopathy Acute
[2016-09-11] MEDS ORDERED: TEMAZEPAM 15 MG CAP PO PRN (07:33)
[2016-09-11] MEDS ORDERED: POLYETHYLENE GLYCOL 3350 17 GM PKT PO PRN (07:33)
[2016-09-11] MEDS ORDERED: MAGNESIUM HYDROXIDE 30 ML UDCUP PO PRN (07:33)
[2016-09-11] MEDS ORDERED: NALOXONE HCL 0.4 MG/ML INJ IVP PRN (07:33)
[2016-09-11] MEDS ORDERED: BISACODYL 10 MG SUPP PR PRN (07:33)
[2016-09-11] MEDS ORDERED: oxyCODONE IR 5 MG TAB PO PRN (07:33)
[2016-09-11] MEDS ORDERED: DIAZEPAM 10 MG/2 ML SYR IVP PRN (07:33)
[2016-09-11] MEDS ORDERED: morphINE PCA 30 MG/30 ML PCA IV PRN (07:33)
[2016-09-11] MEDS ORDERED: LACTULOSE 20 GM/30 ML UDCUP PO PRN (07:33)
[2016-09-11] MEDS ORDERED: CEFAZOLIN 2 GM/DEXTROSE/100 ML BAG IV ONE (07:35)
[2016-09-11] MEDS ORDERED: fentaNYL 100 MCG/2 ML INJ ONE (08:00)
[2016-09-11] MEDS ORDERED: DEXMEDETOMIDINE HCL 200 MCG/2 ML VIAL IV ONE (08:00)
[2016-09-11] MEDS ORDERED: KETAMINE 100 MG/10 ML SYR IVP ONE (08:01)
[2016-09-11] MEDS ORDERED: PROPOFOL 200 MG/20 ML VIAL ONE (08:02)
[2016-09-11] MEDS ORDERED: ROCURONIUM 50 MG/5 ML VIAL ONE (08:09)
[2016-09-11] MEDS ORDERED: DEXAMETHASONE 4 MG/ML VIAL ONE (08:09)
[2016-09-11] MEDS ORDERED: LIDOCAINE 2% 5 ML SDV ONE (08:09)
[2016-09-11] MEDS ORDERED: PROPOFOL/EMULSION 500 MG/50 ML BOTTLE IV ONE ×2 (09:12→10:38)
[2016-09-11] MEDS ORDERED: ONDANSETRON 4 MG/2 ML VIAL ONE (10:36)
--- NOTE | 2016-09-11 13:23 | SOAPPROG ---
SOAP Progress Note Assessment/Plan: Assessment/Plan Post Op Visit: S: Awake and alert. NAD. Pt with expected neck pain O: AFVSS/PERRLA/EOMI no droop +cms/nv intact x 4 COTY x [address] CDI A/P: 76 yo female that is s/p PSF C2-C7 with C3-C7 laminectomy -post op xrays pending in am -collar at all times -PT/OT pending -call NS with any changes or issues -seen by Dr Delcid 09/11/16 13:19 Objective: Vital Signs Temp Pulse Resp BP Pulse Ox 36.5 C 78 18 153/80 H 98 09/10/16 20:20 09/10/16 20:20 09/10/16 20:20 09/10/16 20:20 09/10/16 20:20 Laboratory Results 09/11/16 04:44 09/11/16 04:44 09/10/16 09/11/16 09/12/16 05:59 05:59 05:59 Intake Total 500 Balance 500 PT 13.6 SEC (12.0-15.0) 09/11/16 04:44 INR 1.05 (0.83-1.16) 09/11/16 04:44 ICD10 Worksheet Patient Problems: Problems Problem Status Diagnosed Arthrodesis status Acute Cervical spine degeneration Acute Spinal stenosis of cervical region Acute Back pain Acute Dehydration Acute Hyponatremia Acute Lower abdominal pain Acute Lumbar radiculopathy Acute - ICD10 Problem Qualifiers (1) Arthrodesis status
--- NOTE | 2016-09-11 13:51 | DX ---
Fluoroscopy Indication: Intraoperative. Findings: 5.43 seconds, 3.22 mGy, of intraoperative fluoroscopy was utilized. Additionally, 3 spins were performed for a total dose of 18.99 mGy. Two digital radiographs demonstrate postoperative changes of cervical spinal fusion. Dr. Ciro Delcid performed the surgery.
--- NOTE | 2016-09-11 13:58 | GOP ---
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 PROCEDURE PERFORMED: Posterior cervical laminectomy without facetectomy more than 2 vertebral segments C3, C4, C5, C6 (58226), posterior cervical fusion C2, C3, C4, C5, C6, C7 ([id number], [id number] x 4), posterior cervical segmental instrumentation C2, C3, C4, C5, C7 (36369), spinal stereotaxy, same-incision bone graft harvest ([id number]). FINDINGS: ESTIMATED BLOOD LOSS: 250 cc. INDICATIONS: The patient is a 76-year-old with cervical and lumbar issues who began having hand tingling and had an MRI of her cervical spine ordered by her primary care physician yesterday. It demonstrated cord compression with early cord edema and she was sent immediately to the emergency room and evaluated by the Neurosurgery Service in the emergency room. Indeed, she did have cervical myelopathy and critical spinal stenosis at C2-3 and C3-4, as well as stenosis all the way down to the C6-7 level, and we suggested posterior decompressive surgery, and explained to her the risks, including the risk of loss of motion in the neck, adjacent segment disease, pseudoarthrosis, paralysis, spinal cord injury, nerve injury, spinal fluid leak, neck pain, neck stiffness, screw and hardware malposition and malfunction, and she accepted these risks and wanted to proceed. DESCRIPTION OF PROCEDURE: The patient was taken to the operating room, placed in supine position. General anesthesia was begun. She was placed in a Tellez head frame, flipped prone on the Kayden table. Care was taken to pad all points of contact. Her back was sterilely prepped and draped in the usual fashion. We made a midline incision from the occiput in the midline all the way down to the spinous process of T2. The subcutaneous tissue was dissected using Bovie cautery down through the fascia. A subperiosteal dissection was made down the lamina of C2, C3, C4, C5, C6, and C7, and the rostral lamina of T1 was exposed. A self-retaining retractor was placed. We removed all the soft tissue from the facet joints and lateral masses from C2 all the way down to C7 to create arthrodesis for those levels and tested a Stealth reference frame to the C7 spinous process. We performed an O-arm spin and, using frameless Stealth stereotaxy, we place bilateral pedicle screws at C2 and bilateral screws at C7. We performed an O-arm spin, and the left C7 screw was somewhat medial, and it was removed. The right C3 lateral mass screw was somewhat low on the lateral mass and on the right-hand side was actually a relatively large lateral mass, and this screw too was removed. We repositioned the C7 screw on the left and the right C3 lateral mass screw with good result, and an O-arm spin was made, and these screws were in perfect position. We removed all the lateral mass screws and then removed all the soft tissue of the bone at C2, C3, C4, C5, C5 and C6, decorticated the C7 lamina. We then drilled and harvested the C3, C4, C5, C6 lamina. We then performed a lobster tail laminectomy and removed this en block and then used a 3 mm Kerrison punch to clean up the edges, and this alleviated the spinal stenosis. We harvested a remnant of the lamina that was removed for autologous grafting purposes. We then replaced all of our lateral mass screws, pre-bent some titanium rods, locked them down from C2 to C7, and then placed bony autograft posterolaterally bilaterally from C2 to C7 to conclude our arthrodesis. A subfascial drain was placed. All the screws were torqued according to company specification and we closed the fascia with interrupted Vicryl sutures. The skin was reapproximated with interrupted Vicryl sutures. The patient was removed from the Tellez head frame, extubated, and transferred to recovery room in stable condition. There were no complications. COMPLICATIONS: None. INSTRUMENTATION: [employer] instrumentation without Infuse; there was no Infuse used. /[id number]/MODL MTDD
[2016-09-11] MEDS: amLODIPine BESYLATE 5 MG TAB PO SCH (15:39)
[2016-09-11] MEDS: FAMOTIDINE 20 MG/NACL 50 ML IV SCH ×2 (15:40→21:41)
[2016-09-11] MEDS: CHOLECALCIFEROL VIT D3 2,000 UNITS TAB/CAP PO SCH (15:40)
[2016-09-11] MEDS: PANTOPRAZOLE SODIUM 40 MG TAB PO SCH (15:41)
[2016-09-11] MEDS: morphINE SR 15 MG TAB PO SCH ×2 (15:41→20:57)
[2016-09-11] MEDS: SENNOSIDES/DOCUSATE SODIUM TAB PO SCH ×2 (15:42→20:57)
[2016-09-11] MEDS: POTASSIUM CL 20 MEQ TAB PO SCH (15:42)
[2016-09-11] MEDS: NS W/ 20 KCl/L 1,000 ML IV SCH (15:55)
--- NOTE | 2016-09-11 16:06 | HOSPPROG ---
Hospitalist Progress Note Assessment/Plan: 76 yo female that is s/p PSF C2-C7 with C3-C7 laminectomy. Is my 1st encounter with the patient, chart reviewed. # postop day 0 posterior cervical laminectomy -post op xrays in am -collar at all times -PT/OT pending # pain Currently controlled in the postoperative setting # hyponatremia Improvement today with IV fluids # history of lymphoma Follow-up outpatient # hypertension Continue home medication # disposition Unclear PT OT eval pending Continue supportive management Subjective: Arousable in the postoperative setting. Denies any current pain. Objective: Vital Signs Temp Pulse Resp BP Pulse Ox 36.1 C 79 18 118/59 L 98 09/11/16 14:47 09/11/16 14:47 09/11/16 14:47 09/11/16 15:39 09/11/16 14:47 Laboratory Results 09/11/16 04:44 09/11/16 04:44 09/10/16 09/11/16 09/12/16 05:59 05:59 05:59 Intake Total 500 1350 Output Total 1005 Balance 500 345 PT 13.6 SEC (12.0-15.0) 09/11/16 04:44 INR 1.05 (0.83-1.16) 09/11/16 04:44 - Physical Exam Constitutional: no apparent distress, appears nourished, not in pain Eyes: PERRL, anicteric sclera, EOMI Ears, Nose, Mouth, Throat: moist mucous membranes, hearing normal, ears appear normal Cardiovascular: regular rate and rhythym, No JVD, No edema Respiratory: no respiratory distress, no rales or rhonchi, reduced air movement Gastrointestinal: No tenderness, No ascites, No guarding Skin: warm, normal color, no rashes or abrasions Musculoskeletal: no joint effusions, muscular tenderness, generalized weakness Psychiatric: interacting appropriately, not anxious, not encephalopathic ICD10 Worksheet Patient Problems: Problems Problem Status Diagnosed Arthrodesis status Acute Cervical spine degeneration Acute Spinal stenosis of cervical region Acute Back pain Acute Dehydration Acute Hyponatremia Acute Lower abdominal pain Acute Lumbar radiculopathy Acute
[2016-09-11] MEDS: DIAZEPAM 5 MG TAB PO PRN (16:21)
[2016-09-11] MEDS: HYDROCODONE/APAP 10/325 TAB PO PRN (18:19)
[2016-09-11] MEDS: ATORVASTATIN CALCIUM 40 MG TAB PO SCH (20:56)
[2016-09-12 05:24] LABS: % IMMATURE GRANULYOCYTES 0.2 % (0.0-1.1); ABSOLUTE IMMATURE GRANULOCYTES 0.02 10^3/uL (0.00-0.10); ADD DIFF? NO; ADD MORPH? NO; ADD SCAN? NO; ATYPICAL LYMPHOCYTE FLAG 0 (0-99); FRAGMENT RBC FLAG 0 (0-99); HEMATOCRIT 29.9 % (38.0-47.0); HEMOGLOBIN 10.4 g/dL (12.6-16.3); LEFT SHIFT FLG 0 (0-99); LIPEMIA HEMOLYSIS FLAG 90 (0-99); MEAN CELL HEMOGLOBIN 32.6 pg (27.9-34.1); MEAN CELL HEMOGLOBIN CONCENTR. 34.8 g/dL (32.4-36.7); MEAN CELL VOLUME 93.7 fL (81.5-99.8); MEAN PLATELET VOLUME 10.6 fL (8.7-11.7); PLATELET CLUMPS FLAG 0 (0-99); PLATELET COUNT 262 10^3/uL (150-400); RED BLOOD CELL COUNT 3.19 10^6/uL (4.18-5.33); RED CELL DISTRIBUTION WIDTH 14.9 % (11.5-15.2)
[2016-09-12 05:48] LABS: ANION GAP 7 mEq/L (8-16); CALCIUM 9.1 mg/dL (8.5-10.4); CARBON DIOXIDE 28 mEq/l (22-31); CHLORIDE 99 mEq/L (97-110); CREATININE 0.5 mg/dL (0.6-1.0); GLOMERULAR FILTRATION RATE > 60; GLUCOSE 106 mg/dL (70-100); POTASSIUM 4.7 mEq/L (3.5-5.2); SODIUM 134 mEq/L (134-144)
[2016-09-12] MEDS: METHOCARBAMOL 750 MG TAB PO PRN ×2 (05:54→13:24)
[2016-09-12] MEDS: ACETAMINOPHEN 500 MG TAB PO SCH ×3 (05:54→20:45)
[2016-09-12] MEDS: NS W/ 20 KCl/L 1,000 ML IV SCH (05:55)
--- NOTE | 2016-09-12 08:37 | NEUSURGPN ---
Date of Surgery: 09/11/16 Post Op Day: 1 Assessment/Plan: Assessment: 76 yo female that is s/p PSF C2-C7 with C3-C7 laminectomy POD #1 Plan: -s/p PSF: pt with expected neck pain, arms are better -post op xrays pending this am -collar at all times -PT/OT pending today -ARMANDO in place still-will monitor output and decided when to remove -pt will need more surgery on her L spine in the future-this can be done months down the road after she heals and gets over he C spine surgery -pt understands and agrees -call NS with any changes or issues -seen by Dr Delcid 09/11/16 13:19 Subjective: Awake and alert. NAD. Eating/drinking and voiding. No f/c/n/v/d. No vizcarra/cp/ sob/abd or gu complaints. Objective: AFVSS/PERRLA/EOMI no droop +cms/nv intact x 4 5/5 BUE/BLE =, left triceps 5-/5, left EHL 5-/[address] CDI Neuro Check Frequency: per routine Urinary Catheter in Place: No Catheter Insertion Date: 09/11/16 - Physician Discussed Patient with : Bhavin Patient Seen by : Bhavin Neurosurgery Physical Exam - Vitals, I&O, Labs I and O 09/11/16 09/12/16 09/13/16 05:59 05:59 05:59 Intake Total 500 2072 914 Output Total 2525 Balance 500 -453 914 Weight 52.163 kg Intake: Oral (ml) 0 500 IV Intake (ml) 1350 IV Infused (ml) 500 222 914 ceFAZolin 2 GM/DEXTROSE 44 100 ml @ 200 mls/hr IV ONCALL ONE Rx#:[id number] NS W/ 20 KCl/L 1,000 ml @ 178 914 75 mls/hr IV CONT ABEL Rx #:[id number] Output: Urine (ml) 1955 Toilet 1255 Catheter 700 Estimated Blood Loss (ml) 250 Wound Drainage (ml) 320 Posterior Neck Kayden 320 Saleh Other: Number of Voids 1 Toilet 1 Vital Signs Temp Pulse Resp BP Pulse Ox 36.9 C 75 18 139/66 H 93 09/12/16 07:38 09/12/16 07:38 09/12/16 07:38 09/12/16 07:38 09/12/16 07:38 Laboratory Results 09/12/16 05:05 09/12/16 05:05 ICD10 Worksheet Patient Problems: Problems Problem Status Diagnosed Arthrodesis status Acute Cervical spine degeneration Acute Spinal stenosis of cervical region Acute Back pain Acute Dehydration Acute Hyponatremia Acute Lower abdominal pain Acute Lumbar radiculopathy Acute - ICD10 Problem Qualifiers (1) Arthrodesis status
[2016-09-12] MEDS: PANTOPRAZOLE SODIUM 40 MG TAB PO SCH (09:18)
[2016-09-12] MEDS: amLODIPine BESYLATE 5 MG TAB PO SCH (09:18)
[2016-09-12] MEDS: morphINE SR 15 MG TAB PO SCH ×2 (09:18→20:44)
[2016-09-12] MEDS: CHOLECALCIFEROL VIT D3 2,000 UNITS TAB/CAP PO SCH (09:18)
[2016-09-12] MEDS: POTASSIUM CL 20 MEQ TAB PO SCH ×2 (09:18→11:59)
[2016-09-12] MEDS: SENNOSIDES/DOCUSATE SODIUM TAB PO SCH ×2 (09:18→20:44)
[2016-09-12] MEDS: LORazepam 0.5 MG TAB PO PRN (09:19)
[2016-09-12] MEDS: FAMOTIDINE 20 MG TAB PO SCH ×2 (12:01→20:45)
[2016-09-12] MEDS: FAMOTIDINE 20 MG/NACL 50 ML IV SCH (13:29)
--- NOTE | 2016-09-12 14:17 | HOSPPROG ---
Hospitalist Progress Note Assessment/Plan: 76 yo female who had an outpatient MRI of her cervical spine. She was complaining of some upper extremity numbness and was found to have some fairly significant cervical spine disease with moderate to severe degenerative disc disease with severe cord compression /possible early cord edema at C3-C4. today is my 1st encounter with the patient. Chart reviewed. #. Significant cervical spine disease with associated upper extremity numbness * postop day #1 for a posterior cervical decompression at C2-C7 with C3-C7 laminectomy * to her collar at all times * physical therapy and occupational therapy working with her #. pain due to the above * describes it more as spasms #. anemia * will follow #. hyponatremia * resolved #. history of lymphoma Follow-up in outpatient setting # hypertension * Continue home medication #DVT prophylaxis: LMWH # disposition:pending/ will likely dc to SNF Subjective: Courtney is c/o some neck discomfort/ eating and drinking well. Objective: Vital Signs Temp Pulse Resp BP Pulse Ox 36.9 C 92 18 128/65 H 95 09/12/16 12:06 09/12/16 12:06 09/12/16 12:06 09/12/16 12:06 09/12/16 12:06 Laboratory Results 09/12/16 05:05 09/12/16 05:05 09/11/16 09/12/16 09/13/16 05:59 05:59 05:59 Intake Total 500 2072 914 Output Total 2525 Balance 500 -453 914 PT 13.6 SEC (12.0-15.0) 09/11/16 04:44 INR 1.05 (0.83-1.16) 09/11/16 04:44 - Physical Exam Constitutional: no apparent distress, other (thin) Eyes: PERRL Ears, Nose, Mouth, Throat: hearing normal, other (hard collar in place) Cardiovascular: regular rate and rhythym, systolic murmur Respiratory: no respiratory distress Gastrointestinal: normoactive bowel sounds Skin: warm Musculoskeletal: no muscle tenderness, other (trapezius are tight) Neurologic: AAOx3 Psychiatric: interacting appropriately, not anxious ICD10 Worksheet Patient Problems: Problems Problem Status Diagnosed Arthrodesis status Acute Cervical spine degeneration Acute Spinal stenosis of cervical region Acute Back pain Acute Dehydration Acute Hyponatremia Acute Lower abdominal pain Acute Lumbar radiculopathy Acute
--- NOTE | 2016-09-12 17:20 | DX ---
Cervical Spine, 2 Views History: Postoperative evaluation. Evaluate hardware. Comparison: MRI September 10, 2016. Findings: Postsurgical changes are seen of laminectomy of C3-C6. Posterior fusion with paired lateral mass screws at C2, C3, C4, and C5. Pedicle screws at C7. Stabilization rods in place. No evidence fo r hardware fracture. Multilevel disk height narrowing and osteophytosis is seen more predominant at C 5-C6 and C6-C7. There is 3.5 mm of retrolisthesis C5 on C6. Impression: Postsurgical changes of posterior decompression and fusion C2-C7 as above.
[2016-09-12] MEDS: DIAZEPAM 5 MG TAB PO PRN (20:44)
[2016-09-12] MEDS: ATORVASTATIN CALCIUM 40 MG TAB PO SCH (20:45)
[2016-09-13] MEDS: LORazepam 0.5 MG TAB PO PRN (01:52)
[2016-09-13] MEDS: METHOCARBAMOL 750 MG TAB PO PRN ×3 (01:53→16:20)
[2016-09-13] MEDS: ACETAMINOPHEN 500 MG TAB PO SCH ×3 (06:13→20:06)
[2016-09-13] MEDS: amLODIPine BESYLATE 5 MG TAB PO SCH (08:30)
[2016-09-13] MEDS: PANTOPRAZOLE SODIUM 40 MG TAB PO SCH (08:30)
[2016-09-13] MEDS: POTASSIUM CL 20 MEQ TAB PO SCH ×2 (08:30→12:08)
[2016-09-13] MEDS: morphINE SR 15 MG TAB PO SCH ×2 (08:30→20:07)
[2016-09-13] MEDS: FAMOTIDINE 20 MG TAB PO SCH ×2 (08:30→20:07)
[2016-09-13] MEDS: SENNOSIDES/DOCUSATE SODIUM TAB PO SCH ×2 (08:31→20:07)
[2016-09-13] MEDS: HYDROCODONE/APAP 10/325 TAB PO PRN ×2 (08:36→14:50)
--- NOTE | 2016-09-13 08:42 | HOSPPROG ---
Hospitalist Progress Note Assessment/Plan: 76 yo female who had an outpatient MRI of her cervical spine. She was complaining of some upper extremity numbness and was found to have some fairly significant cervical spine disease with moderate to severe degenerative disc disease with severe cord compression /possible early cord edema at C3-C4. #. Significant cervical spine disease with associated upper extremity numbness * postop day #2 for a posterior cervical decompression at C2-C7 with C3-C7 laminectomy * to her collar at all times * physical therapy and occupational therapy working with her #. pain due to the above * getting long acting and short acting medications #. anemia * will follow #. hyponatremia * resolved #. history of lymphoma Follow-up in outpatient setting # hypertension * Continue home medication #DVT prophylaxis: LMWH # disposition:pending/ will likely dc to SNF Subjective: Courtney said pain is ongoing. Objective: Vital Signs Temp Pulse Resp BP Pulse Ox 36.8 C 86 16 142/71 H 92 09/13/16 07:39 09/13/16 07:39 09/13/16 07:39 09/13/16 07:39 09/13/16 07:39 Laboratory Results 09/12/16 05:05 09/12/16 05:05 09/12/16 09/13/16 09/14/16 05:59 05:59 05:59 Intake Total 2072 3614 Output Total 2522 1750 Balance -453 1864 PT 13.6 SEC (12.0-15.0) 09/11/16 04:44 INR 1.05 (0.83-1.16) 09/11/16 04:44 - Physical Exam Constitutional: uncomfortable Eyes: PERRL Ears, Nose, Mouth, Throat: hearing normal Cardiovascular: regular rate and rhythym, systolic murmur Respiratory: no respiratory distress, reduced air movement Gastrointestinal: normoactive bowel sounds Skin: warm Musculoskeletal: muscular tenderness, generalized weakness Neurologic: AAOx3 Psychiatric: interacting appropriately, not anxious ICD10 Worksheet Patient Problems: Problems Problem Status Diagnosed Arthrodesis status Acute Cervical spine degeneration Acute Spinal stenosis of cervical region Acute Back pain Acute Dehydration Acute Hyponatremia Acute Lower abdominal pain Acute Lumbar radiculopathy Acute
[2016-09-13] MEDS: CHOLECALCIFEROL VIT D3 2,000 UNITS TAB/CAP PO SCH (09:30)
--- NOTE | 2016-09-13 15:57 | NEUSURGPN ---
Date of Surgery: 09/11/16 Post Op Day: 2 Assessment/Plan: 76 yo female status post posterior cervical fusion C2-7 Ongoing posterior neck pain as expected No new neuro changes Plan: Continue hard collar PT/OT as tolerated Consider rehab Subjective: in bedside chair, No new issues, just expected post op cervical pain. Objective: Dressing: CDI No ARMANDO Neuro: TATE, Sens +LT, but diminished in bilateral hands left triceps weakness persists left EHL5-/5 follows commands, sens +LT Post op xrays show satisfactory hardware positioning Urinary Catheter in Place: No Catheter Insertion Date: 09/11/16 Neurosurgery Physical Exam - Vitals, I&O, Labs I and O 09/12/16 09/13/16 09/14/16 05:59 05:59 05:59 Intake Total 2072 3614 Output Total 2525 1750 1050 Balance -453 1864 -1050 Intake: Oral (ml) 500 1950 IV Intake (ml) 1350 IV Infused (ml) 222 1664 ceFAZolin 2 GM/DEXTROSE 44 100 ml @ 200 mls/hr IV ONCALL ONE Rx#:[id number] NS W/ 20 KCl/L 1,000 ml @ 178 1664 75 mls/hr IV CONT ABEL Rx #:[id number] Output: Urine (ml) 1955 1750 1050 Toilet 1255 Catheter 700 1750 1050 Estimated Blood Loss (ml) 250 Wound Drainage (ml) 320 Posterior Neck Kayden 320 Saleh Other: Number of Voids Toilet 1 Vital Signs Temp Pulse Resp BP Pulse Ox 36.8 C 86 16 142/71 H 94 09/13/16 07:39 09/13/16 07:39 09/13/16 07:39 09/13/16 07:39 09/13/16 10:20 Laboratory Results 09/12/16 05:05 09/12/16 05:05 ICD10 Worksheet Patient Problems: Problems Problem Status Diagnosed Arthrodesis status Acute Cervical spine degeneration Acute Spinal stenosis of cervical region Acute Back pain Acute Dehydration Acute Hyponatremia Acute Lower abdominal pain Acute Lumbar radiculopathy Acute
[2016-09-13] MEDS: ATORVASTATIN CALCIUM 40 MG TAB PO SCH (20:07)
[2016-09-13] MEDS: DIAZEPAM 5 MG TAB PO PRN (20:07)
[2016-09-14] MEDS: HYDROCODONE/APAP 10/325 TAB PO PRN ×3 (03:56→12:43)
[2016-09-14] MEDS: ACETAMINOPHEN 500 MG TAB PO SCH ×2 (05:31→13:22)
[2016-09-14] MEDS: amLODIPine BESYLATE 5 MG TAB PO SCH (08:22)
[2016-09-14] MEDS: POTASSIUM CL 20 MEQ TAB PO SCH ×2 (08:22→12:43)
[2016-09-14] MEDS: PANTOPRAZOLE SODIUM 40 MG TAB PO SCH (08:22)
[2016-09-14] MEDS: FAMOTIDINE 20 MG TAB PO SCH ×2 (08:23→19:39)
[2016-09-14] MEDS: CHOLECALCIFEROL VIT D3 2,000 UNITS TAB/CAP PO SCH (08:23)
[2016-09-14] MEDS: ENOXAPARIN 40 MG/0.4 ML SYR SC SCH (08:23)
[2016-09-14] MEDS: SENNOSIDES/DOCUSATE SODIUM TAB PO SCH ×2 (08:23→19:39)
[2016-09-14] MEDS: morphINE SR 15 MG TAB PO SCH ×2 (08:23→19:39)
[2016-09-14] MEDS: DIAZEPAM 5 MG TAB PO PRN ×2 (08:33→16:30)
--- NOTE | 2016-09-14 13:20 | NEUSURGPN ---
Date of Surgery: 09/11/16 Post Op Day: 3 Assessment/Plan: 76 yo female status post posterior cervical fusion C2-7 Ongoing posterior neck pain as expected No new neuro changes Plan: Continue hard collar PT/OT as tolerated Consider rehab, the patient wants to go to rehab and does not want to go home as she does not feel comfortable with that yet. xrays show intact hardware and good alignment Subjective: says she feels overmedicated, but still has pain Objective: TATE, Sens +LT, but diminished in bilateral hands left triceps weakness persists left EHL5-/5 follows commands, sens +LT Catheter Insertion Date: 09/11/16 - Physician Patient Seen by Dr.: Baljeet Neurosurgery Physical Exam - Vitals, I&O, Labs I and O 09/13/16 09/14/16 09/15/16 05:59 05:59 05:59 Intake Total 3614 600 Output Total 1750 2050 Balance 1864 -1450 Intake: Oral (ml) 1950 600 IV Infused (ml) 1664 NS W/ 20 KCl/L 1,000 ml @ 1664 75 mls/hr IV CONT ABEL Rx #:[id number] Output: Urine (ml) 1750 2050 Toilet 1000 Catheter 1750 1050 Other: Intake Quantity Yes Sufficient Number of Voids Toilet 3 Vital Signs Temp Pulse Resp BP Pulse Ox 36.8 C 85 18 151/75 H 93 09/14/16 07:22 09/14/16 07:22 09/14/16 07:22 09/14/16 08:22 09/14/16 07:22 Laboratory Results 09/12/16 05:05 09/12/16 05:05 ICD10 Worksheet Patient Problems: Problems Problem Status Diagnosed Arthrodesis status Acute Cervical spine degeneration Acute Spinal stenosis of cervical region Acute Back pain Acute Dehydration Acute Hyponatremia Acute Lower abdominal pain Acute Lumbar radiculopathy Acute
[2016-09-14 16:25] VITALS: RESP 16
--- NOTE | 2016-09-14 17:50 | HOSPPROG ---
Hospitalist Progress Note Assessment/Plan: 76 yo female who had an outpatient MRI of her cervical spine. She was complaining of some upper extremity numbness and was found to have some fairly significant cervical spine disease with moderate to severe degenerative disc disease with severe cord compression /possible early cord edema at C3-C4. #. Significant cervical spine disease with associated upper extremity numbness * postop day #3 for a posterior cervical decompression at C2-C7 with C3-C7 laminectomy * to her collar at all times * physical therapy and occupational therapy working with her/ they feel she is is doing overall well with ambulation and stairs #. pain due to the above * getting long acting and short acting medications #. anemia * will follow #. hyponatremia * resolved #. history of lymphoma Follow-up in outpatient setting # hypertension * Continue home medication #DVT prophylaxis: LMWH # disposition:pending/ patient is very concerned about going home. Assured her we would work on getting home care. She is still feeling too weak to be discharged today Subjective: Courtney is not complaining of pain but is very anxious about being discharged the next day or so. Objective: Vital Signs Temp Pulse Resp BP Pulse Ox 37.0 C 76 16 121/61 H 96 09/14/16 16:00 09/14/16 16:00 09/14/16 16:00 09/14/16 16:00 09/14/16 16:00 Laboratory Results 09/12/16 05:05 09/12/16 05:05 09/13/16 09/14/16 09/15/16 05:59 05:59 05:59 Intake Total 3614 600 Output Total 1750 0 Balance 1864 -1450 PT 13.6 SEC (12.0-15.0) 09/11/16 04:44 INR 1.05 (0.83-1.16) 09/11/16 04:44 - Physical Exam Constitutional: no apparent distress, appears nourished, uncomfortable Eyes: PERRL Ears, Nose, Mouth, Throat: hearing normal, other ( hard collar in place on neck area) Respiratory: no respiratory distress Skin: warm, normal color Musculoskeletal: generalized weakness Neurologic: AAOx3 Psychiatric: interacting appropriately, anxious ICD10 Worksheet Patient Problems: Problems Problem Status Diagnosed Arthrodesis status Acute Cervical spine degeneration Acute Spinal stenosis of cervical region Acute Back pain Acute Dehydration Acute Hyponatremia Acute Lower abdominal pain Acute Lumbar radiculopathy Acute
[2016-09-14] MEDS: ATORVASTATIN CALCIUM 40 MG TAB PO SCH (19:40)
[2016-09-15] MEDS: DIAZEPAM 5 MG TAB PO PRN ×2 (00:43→07:58)
[2016-09-15] MEDS: ACETAMINOPHEN 500 MG TAB PO SCH ×3 (00:43→14:50)
[2016-09-15] MEDS: HYDROCODONE/APAP 10/325 TAB PO PRN ×2 (03:51→11:58)
[2016-09-15 05:49] LABS: % IMMATURE GRANULYOCYTES 0.6 % (0.0-1.1); ABSOLUTE IMMATURE GRANULOCYTES 0.05 10^3/uL (0.00-0.10); ADD DIFF? NO; ADD MORPH? NO; ADD SCAN? NO; ATYPICAL LYMPHOCYTE FLAG 10 (0-99); FRAGMENT RBC FLAG 0 (0-99); HEMOGLOBIN 11.1 g/dL (12.6-16.3); LEFT SHIFT FLG 0 (0-99); LIPEMIA HEMOLYSIS FLAG 90 (0-99); MEAN CELL HEMOGLOBIN 33.8 pg (27.9-34.1); MEAN CELL HEMOGLOBIN CONCENTR. 35.8 g/dL (32.4-36.7); MEAN CELL VOLUME 94.5 fL (81.5-99.8); MEAN PLATELET VOLUME 10.4 fL (8.7-11.7); PLATELET CLUMPS FLAG 0 (0-99); PLATELET COUNT 277 10^3/uL (150-400); RED BLOOD CELL COUNT 3.28 10^6/uL (4.18-5.33); RED CELL DISTRIBUTION WIDTH 14.6 % (11.5-15.2)
[2016-09-15 06:10] LABS: ANION GAP 5 mEq/L (8-16); CALCIUM 9.3 mg/dL (8.5-10.4); CARBON DIOXIDE 27 mEq/l (22-31); CHLORIDE 98 mEq/L (97-110); CREATININE 0.5 mg/dL (0.6-1.0); GLOMERULAR FILTRATION RATE > 60; GLUCOSE 107 mg/dL (70-100); POTASSIUM 4.9 mEq/L (3.5-5.2); SODIUM 130 mEq/L (134-144)
[2016-09-15 07:33] VITALS: BP 138/70; PULSE 75; TEMP 97.9; O2SAT 91
[2016-09-15] MEDS: PANTOPRAZOLE SODIUM 40 MG TAB PO SCH (07:51)
[2016-09-15] MEDS: ENOXAPARIN 40 MG/0.4 ML SYR SC SCH (07:51)
[2016-09-15] MEDS: amLODIPine BESYLATE 5 MG TAB PO SCH (07:51)
[2016-09-15] MEDS: CHOLECALCIFEROL VIT D3 2,000 UNITS TAB/CAP PO SCH (07:51)
[2016-09-15] MEDS: FAMOTIDINE 20 MG TAB PO SCH (07:51)
[2016-09-15] MEDS: POTASSIUM CL 20 MEQ TAB PO SCH ×2 (07:51→11:58)
[2016-09-15] MEDS: SENNOSIDES/DOCUSATE SODIUM TAB PO SCH (07:52)
[2016-09-15] MEDS: morphINE SR 15 MG TAB PO SCH (07:52)
--- NOTE | 2016-09-15 10:46 | NEUSURGPN ---
Date of Surgery: 09/11/16 Post Op Day: 4 Assessment/Plan: 76 yo female status post posterior cervical fusion C2-7 Ongoing posterior neck pain as expected, but improving No new neuro changes Plan: Continue hard collar PT/OT as tolerated xrays show intact hardware and good alignment d/c home today with home health Subjective: patient nervous about going home, but she is doing quite well Objective: TATE, Sens +LT, but diminished in bilateral hands left triceps weakness improved, strength now near normal follows commands, sens +LT wound c/d/i Catheter Insertion Date: 09/11/16 - Physician Patient Seen by DrAmarilis: Baljeet Neurosurgery Physical Exam - Vitals, I&O, Labs I and O 09/14/16 09/15/16 09/16/16 05:59 05:59 05:59 Intake Total 600 1000 Output Total 2050 Balance -1450 1000 Intake: Oral (ml) 600 1000 Output: Urine (ml) 2050 Toilet 1000 Catheter 1050 Other: Intake Quantity Yes Sufficient Number of Voids Toilet 3 1 Incontinence 1 Number of Stools Toilet 1 Bedside Commode 1 Vital Signs Temp Pulse Resp BP Pulse Ox 36.6 C 75 16 138/70 H 91 L 09/15/16 07:33 09/15/16 07:33 09/15/16 07:33 09/15/16 07:51 09/15/16 07:33 Laboratory Results 09/15/16 05:30 09/15/16 05:30 ICD10 Worksheet Patient Problems: Problems Problem Status Diagnosed Arthrodesis status Acute Cervical spine degeneration Acute Spinal stenosis of cervical region Acute Back pain Acute Dehydration Acute Hyponatremia Acute Lower abdominal pain Acute Lumbar radiculopathy Acute
--- NOTE | 2016-09-15 11:17 | HOSPPROG ---
Hospitalist Progress Note Assessment/Plan: 76 yo female who had an outpatient MRI of her cervical spine. She was complaining of some upper extremity numbness and was found to have some fairly significant cervical spine disease with moderate to severe degenerative disc disease with severe cord compression /possible early cord edema at C3-C4. #. Significant cervical spine disease with associated upper extremity numbness * postop day #4 for a posterior cervical decompression at C2-C7 with C3-C7 laminectomy * to wear collar at all times * physical therapy and occupational therapy working with her/ they feel she is is doing overall well with ambulation and stairs #. pain due to the above * getting long acting and short acting medications #. anemia * will follow #. hyponatremia * resolved/slightly lower today/ will have this followed #. history of lymphoma Follow-up in outpatient setting # hypertension * Continue home medication #DVT prophylaxis: LMWH # disposition: home today/ with home care of PT and OT Subjective: Courtney is anxious about being discharged, but says she has underlying anxiety/ neck pain is well controlled. Objective: Vital Signs Temp Pulse Resp BP Pulse Ox 36.6 C 75 16 138/70 H 91 L 09/15/16 07:33 09/15/16 07:33 09/15/16 07:33 09/15/16 07:51 09/15/16 07:33 Laboratory Results 09/15/16 05:30 09/15/16 05:30 09/14/16 09/15/16 09/16/16 05:59 05:59 05:59 Intake Total 600 1000 Output Total 0 Balance -1450 1000 PT 13.6 SEC (12.0-15.0) 09/11/16 04:44 INR 1.05 (0.83-1.16) 09/11/16 04:44 - Physical Exam Constitutional: no apparent distress, appears nourished, not in pain Eyes: PERRL Ears, Nose, Mouth, Throat: hearing normal Cardiovascular: regular rate and rhythym Respiratory: no respiratory distress Gastrointestinal: normoactive bowel sounds Skin: warm Musculoskeletal: full muscle strength Neurologic: AAOx3 Psychiatric: interacting appropriately, not anxious ICD10 Worksheet Patient Problems: Problems Problem Status Diagnosed Arthrodesis status Acute Cervical spine degeneration Acute Spinal stenosis of cervical region Acute Back pain Acute Dehydration Acute Hyponatremia Acute Lower abdominal pain Acute Lumbar radiculopathy Acute
--- NOTE | 2016-09-15 11:32 | PDIAF ---
- Diagnosis Diagnosis: Cervical spine disease s/p posterior cervical decompression & lami Code Status: Full Code - Medication Management Discharge Medications: Medications to Continue on Transfer Atorvastatin Calcium [Lipitor 40 mg (*)] 40 mg PO HS 07/01/16 [Last Taken ] Chlorpheniramine Maleate 12 mg PO DAILY PRN 07/01/16 [Last Taken 09/10/16] Cholecalciferol Vit D3 [Vitamin D3 (*)] 2,000 units PO DAILY 07/01/16 [Last Taken 09/10/16] Omeprazole 20 mg PO DAILY 07/01/16 [Last Taken 09/10/16] Potassium Cl [Klor-Con 20 meq (*)] 20 meq PO BID@,12 07/01/16 [Last Taken ] amLODIPine BESYLATE [Norvasc 5 mg (*)] 5 mg PO DAILY 07/01/16 [Last Taken ] Hydrochlorothiazide [HCTZ (*)] 25 mg PO DAILY #30 tab 07/02/16 [Last Taken 09/10] Diazepam [Valium 5 MG (*)] 5 mg PO DAILY PRN #14 tab 09/15/16 [Last Taken Unknown] HYDROcodone/APAP 10/325 [[place] 10/325 (*)] 1 tab PO Q6HRS PRN #30 tab 09/15/16 [ Last Taken Unknown] Methocarbamol [Robaxin 750 mg (*)] 750 mg PO QID PRN #30 tab 09/15/16 [Last Taken Unknown] Sennosides/Docusate Sodium [Senokot-S] 1 - 2 tab PO BID #0 tab 09/15/16 [Last Taken Unknown] Discharge Medications: Refer to the Discharge Home Medication list for PRN reason. - Orders Services needed: Home Care, Physical Therapy, Occupational Therapy Home Care Face to Face: I certify that this patient was under my care and that I had the required [id number] encounter meeting the encounter requirements on the discharge day. My findings support the fact that the patient is homebound as defined in CMS Chapter 7 Medicare Benefits Manual 30.1.1, The condition of the patient is such that there exists a normal inability to leave home and consequently, leaving home would require a considerable and taxing effort. Diet Recommendation: no restrictions on diet Diet Texture: Regular Texture Diet Activity/Weight Bearing Restrictions: wear collar at all times Additional: avoid taking valium and robaxin at the same time. Make appt to see neurosurgery in next 7-10 days. - Labs/Radiology BMP Date: 09/20/16 (results call to pcp) CBC Date: 09/20/16 (results call to pcp) - Follow Up Care Current Providers and Referrals: Darien Holliday MD [Primary Care Provider] - Brady Delcid MD [Medical Doctor] -
--- NOTE | 2016-09-15 12:00 | GDS ---
[f rep st] DISCHARGE SUMMARY DISCHARGE DIAGNOSES: 1. Significant cervical spine disease with associated upper extremity weakness , status post cervical surgery. 2. Pain due to this. 3. Anemia. 4. Hyponatremia. 5. History of lymphoma. 6. Hypertension. CONSULTATIONS: LENO Manrique with neurosurgical services. BRIEF HISTORY: The patient is a 76-year-old female with known lumbar stenosis and history of non Hodgkin lymphoma. She had an outpatient MRI of her cervical spine because she had some extremity numbness. She was noted to have significant cervical spine disease with moderate to severe degenerative disk disease with severe cord compression, possibly cord edema at C3-C4. During her stay, she was then evaluated by neurosurgical services. On September 11, she had posterior cervical surgery done by Dr. Frankie Delcid. She has done nicely with surgery. The plan is for her to go home with home care and further followup with him in the outpatient setting. HOSPITAL COURSE PER PROBLEM: 1. Significant spine disease with associated upper extremity numbness. She is postop day #3 for posterior cervical decompression at C2-C7 with a C3-C7 laminectomy. She has a collar on at all times. She has done well with physical therapy. 2. Pain. She will be on [place] as well as Robaxin at discharge. 3. Anemia, stable. 4. Hyponatremia. Her sodium level decreased a bit. Will have this rechecked in a few days and the results called to her PCP. 5. Hypertension. Blood pressure is stable. CONDITION AT DISCHARGE: Stable. Blood pressure is 138/70, heart rate is 75, respiratory rate is 16, O2 sat on room air 91%, temperature is 36.6 Celsius. MEDICATIONS AT DISCHARGE: Please see the EMR. DISCHARGE INSTRUCTIONS: 1. Care per neurosurgical team as far as her collar. 2. To see them in 7-10 days. 3. If she develops any fever, chills, chest pain, or shortness of breath, return to the ER. 4. Do not drink or drive while on the Valium, [place], or Robaxin. Greater than 30 minutes spent in discharging and coordinating care. /[id number]/MODL MTDD
== END 2016-09-15 14:50 | disposition home health service (06) | DRG 471 ==
LOC: F3N 20:13
PROVIDERS: ADMIT Neurological Surgery; ATTEND Internal Medicine
PROC: 0PB30ZZ Excision of Cervical Vertebra, Open Approach (ICD-10-PCS; principal; 2016-09-11 08:30)
PROC: 00NW0ZZ Release Cervical Spinal Cord, Open Approach (ICD-10-PCS; principal; 2016-09-11 08:30)
PROC: 0RG20J1 Fusion of 2 or more Cervical Vertebral Joints with Synthetic Substitute, Posterior Approach, Posterior Column, Open Approach (ICD-10-PCS; principal; 2016-09-11 08:30)
DX: M48.02 Spinal stenosis, cervical region (principal); G95.19 Other vascular myelopathies; E87.1 Hypo-osmolality and hyponatremia; I10 Essential (primary) hypertension; E78.5 Hyperlipidemia, unspecified; F10.99 Alcohol use, unspecified with unspecified alcohol-induced disorder; F41.9 Anxiety disorder, unspecified; Z85.71 Personal history of Hodgkin lymphoma
CPT/HCPCS: 96374; 97110-GP; 97116-GP; 97161-GP; 97165-GO; 97530-GP; 97535-GO; C1713; G8978-GP-CI; G8978-GP-CJ; G8979-GP-CI; G8980-GP-CI; G8988-GO-CI; G8988-GO-CJ; G8989-GO-CI; J0690; J1100; J1170; J1650; J2405; J2704; J3010

== ENCOUNTER → 2016-09-10 | Outpatient (CLI) | payer OTHER, MEDICARE ==
--- NOTE | 2016-09-10 16:52 | MR ---
MRI Cervical Spine (Without Contrast) History: R20.0, anesthesia of skin, numbness progressing over three weeks, with hand weakness. Technique: Sagittal T1, T2, axial T2, and 3D gradient echo MR sequences of the cervical spine, witho ut contrast. COMPARISON: MRI cervical spine August 2010. Findings: Severe cord compression and deformity at C2-C3, C3-C4, and C5-C6, with possible early cord edema at C3-C4. This has significantly progressed since 2010. No cervical compression fractures or destructive osseous lesions. Cerebellar tonsils are in rosaura l position. C2-C3: Moderate degenerative disk disease, with dorsal disk/osteophyte complex, severe left facet ar thropathy, and moderate right facet arthropathy, resulting in moderate to severe central canal stenos is, with cord compression and deformity and moderate bilateral neural foraminal stenosis, left worse than right. C3-C4: Moderate degenerative disk disease, with dorsal disk/osteophyte complex, severe bilateral fac et arthropathy, degenerative grade 1 anterolisthesis, resulting in severe central canal stenosis, wit h severe cord compression and deformity, AP diameter of the cord approximately 3 mm, and suggestion o f possible early cord edema. No myelomalacia. Degenerative anterolisthesis and bilateral facet arth ropathy also result in moderate to severe bilateral neural foraminal stenosis, right worse than left. C4-C5: Moderate degenerative disk disease, with dorsal disk/osteophyte complex, bilateral uncoverteb ral osteophytes, and moderate bilateral facet arthropathy, resulting in mild central canal stenosis, moderate to severe right neural foraminal stenosis, and mild to moderate left neural foraminal stenos is. C5-C6: Severe degenerative disk disease, with severe loss of disk height, degenerative retrolisthesi s, dorsal disk/osteophyte complex asymmetrically more prominent towards the right, bilateral uncovert ebral osteophytes, and mild bilateral facet arthropathy resulting in severe central canal stenosis, w ith cord compression and deformity, with the cord approximately 5 mm in AP dimension, and moderate to severe bilateral neural foraminal stenosis. No definite cord edema. C6-C7: Severe degenerative disk disease, with moderate loss of disk height, dorsal disk/osteophyte c omplex asymmetrically more prominent towards the right, bilateral uncovertebral osteophytes, and mode rate bilateral facet arthropathy, resulting in mild to moderate central canal stenosis and moderate t o severe bilateral neural foraminal stenosis. Slight cord compression ventrally towards the right. C7-T1: Moderate degenerative disk disease, with dorsal disk/osteophyte complex and mild bilateral fa cet arthropathy, resulting in mild bilateral neural foraminal stenosis, without central canal stenosi s. T1-T2: Moderate degenerative disk disease, with dorsal disk/osteophyte complex, degenerative anterol isthesis, and moderate bilateral facet arthropathy, resulting in mild central canal stenosis and mild to moderate bilateral neural foraminal stenosis. T2-T3: Moderate degenerative disk disease, with degenerative anterolisthesis, dorsal disk/osteophyte complex, without central canal or neural foraminal stenosis. T3-T4: Moderate degenerative disk disease, with dorsal disk/osteophyte complex and possible left par amedian disk herniation, extrusion, migrating cephalad resulting in mild central canal stenosis, with out neural foraminal stenosis. Impressions 1. Multilevel moderate to severe degenerative disk disease and severe bilateral facet arthropathy fr om C2-C3 through C6-C7 resulting in severe central canal stenosis, with cord compression and deformit y, at C2-C3, C3-C4, and C5-C6, and multilevel moderate to severe bilateral neural foraminal stenosis. 2. Severe cord compression and possible early cord edema at C3-C4. 3. Recommend neurosurgery consult. 4. Please see above findings at specific disk levels. Findings and recommendations discussed with Soco Ferrer, N.P., at 1610 hours, on September 10, 2016. E:kamar
== END ==
LOC: FIMAGING 14:56
PROVIDERS: ATTEND Nurse Practitioner Adult Health
DX: R20.0 Anesthesia of skin (principal); M50.01 Cervical disc disorder with myelopathy, high cervical region

== ENCOUNTER 2016-10-16 09:25 | Emergency (ER) | payer OTHER, MEDICARE ==
[2016-10-16 09:31] VITALS: RESP 18
[2016-10-16] MEDS ORDERED: NS 1,000 ML IV ONE (10:04)
--- NOTE | 2016-10-16 10:07 | EDPHY ---
H & P Stated Complaint: LOWER ABD PAIN/?CONSTIPATION/DC MANOR CARE YESTERDAY R/T NECK SURG HPI/ROS: CHIEF COMPLAINT: "I have the worst UTI ever had" HISTORY OF PRESENT ILLNESS: patient complains of abdominal pain that started yesterday. It is a moderate to severe pain over the suprapubic region. Worse with palpation. Does not radiate. Associated with dysuria and frequent urination. No nausea vomiting. No fever or chills. no upper abdominal pain. Does have a recent constipation which is being treated with suppositories. She also had a recent surgery on the end of August for cervical fusion and just was discharged home from rehab yesterday. She has no other associated complaints or modifying factors. REVIEW OF SYSTEMS: Ten systems reviewed and are negative unless otherwise noted in the HPI EXAMINATION: General Appearance: Alert, no distress Head: normocephalic, atraumatic Eyes: Pupils equal and round, no conjunctival pallor or injection ENT, Mouth: Mucous membranes moist. Uvula midline. Neck: post-operative Reading C-spine collar in place. Normal appearance. Collar left in place. Respiratory: Lungs are clear to auscultation Cardiovascular: Regular rate and rhythm . No murmur. Pulses intact distally. Gastrointestinal: Abdomen is soft . Mild suprapubic tenderness. No tympany. No rigidity. No CVA tenderness.Non-acute abdomen. Neurological: A&O, nonfocal, Strength is symmetric in all limbs. Skin: Warm and dry, no rash Extremities: Nontender, no pedal edema Psychiatric: Mood and affect normal DIFFERENTIAL DIAGNOSES: Including but not limited to Acute UTI, acute pyelonephritis, chronic UTI, abdominal pain NOS, constipation MDM: 10:05 a.m. complaints of urinary tract infection with positive leukocyte esterase on urine dip. Abdominal laboratory studies have been ordered. Her abdominal exam is relatively benign and certainly nonacute. No CVA tenderness. Vital signs are stable. Laboratory studies are pending at this time. 10:55 a.m. laboratory studies reveal an acute urinary tract infection. There is a very mild hyponatremia at 131 mEq. I provided 1 L IV fluid resuscitation, we will give her her 1st dose of oral antibiotic here. Plan for discharge home with continued oral treatment for urinary tract infection. The patient is comfortable with this plan. I do feel that she is stable for discharge home and does not warrant admission at this time. She does have home health for her previous surgery. Recommend she follow up with primary care physician this week. Also recommend that she return to the ER for recheck should she have no improvement in 1-2 days, any fever, nausea vomiting or worsening symptoms. Patient is comfortable this plan. I have answered all of her questions and she is stable for discharge home at this time. ED Precautions: Worsening pain. Fever. Bloody stools. Bloody emesis. Constipation or diarrhea. SUPERVISION: This patient was independently evaluated without the aide of supervising physician. Case discussed with Dr. Woods Source: Patient, Old records Exam Limitations: No limitations - Personal History Current Tetanus/Diphtheria Vaccine: Yes Tetanus Vaccine Date: 07-15-12 - Medical/Surgical History Hx Asthma: No Hx Chronic Respiratory Disease: No Hx Diabetes: No Hx Cardiac Disease: No Hx Renal Disease: No Hx Cirrhosis: No Hx Alcoholism: No Hx HIV/AIDS: No Hx Splenectomy or Spleen Trauma: No Other PMH: 03/2016 Left rib fracture, HTN, Non-Hodkins Lyphoma for 8 years, hysterectomy, bilateral hip replacements. anxiiety - Social History Smoking Status: Never smoked Constitutional: Initial Vital Signs Temperature (C) 97.3 F 10/16/16 09:27 Heart Rate 91 10/16/16 09:27 Respiratory Rate 18 10/16/16 09:27 Blood Pressure 130/76 H 10/16/16 09:27 O2 Sat (%) 94 10/16/16 09:27 O2 Delivery Mode Room Air Allergies/Adverse Reactions: MARCIANO Inhibitors Allergy (Mild, Verified 10/16/16 09:25) COUGH Sulfa (Sulfonamide Antibiotics) Allergy (Mild, Verified 10/16/16 09:25) Rash phenazopyridine HCl [From Pyridium] Allergy (Unknown, Verified 10/16/16 09:25) nitrofurantoin macrocrystalline [From Macrodantin] Allergy (Verified 10/16/16 09 :25) opiates Allergy (Intermediate, Uncoded 08/17/16 19:53) Constipation DOGS/CATS Allergy (Mild, Uncoded 08/17/16 19:53) ITCHY EYES/SCRATCHY THROAT/RUNNY NOSE ENVIRONMENTAL Allergy (Mild, Uncoded 08/17/16 19:53) ITCHY EYES/SCRATCHY THROAT/RUNNY NOSE SEASONAL Allergy (Mild, Uncoded 08/17/16 19:53) ITCHY EYES/RUNNY NOSE/SCRATCHY THROAT Home Medications: Medication Instructions Recorded Atorvastatin Calcium [Lipitor 40 40 mg PO HS 07/01/16 mg (*)] Chlorpheniramine Maleate 12 mg PO DAILY PRN 07/01/16 Cholecalciferol Vit D3 [Vitamin D3 2,000 units PO DAILY 07/01/16 (*)] Omeprazole 20 mg PO DAILY 07/01/16 Potassium Cl [Klor-Con 20 meq (*)] 20 meq PO BID@,12 07/01/16 amLODIPine BESYLATE [Norvasc 5 mg 5 mg PO DAILY 07/01/16 (*)] Hydrochlorothiazide [HCTZ (*)] 25 mg PO DAILY #30 tab 07/02/16 Diazepam [Valium 5 MG (*)] 5 mg PO DAILY PRN #14 tab 09/15/16 HYDROcodone/APAP 10/325 [[place] 1 tab PO Q6HRS PRN #30 tab 09/15/16 10/325 (*)] Methocarbamol [Robaxin 750 mg (*)] 750 mg PO QID PRN #30 tab 09/15/16 Sennosides/Docusate Sodium 1 - 2 tab PO BID #0 tab 09/15/16 [Senokot-S] levOFLOXACIN [levAQUIN (*)] 750 mg PO DAILY #4 tab 10/16/16 Medical Decision Making - Data Points Laboratory Results: Laboratory Results 10/16/16 10:10 10/16/16 10:10 10/16/16 10/16/16 10/16/16 10:10 10:10 10:10 WBC 6.57 10^3/uL 10^3/uL (3.80-9.50) RBC 4.19 10^6/uL 10^6/uL (4.18-5.33) Hgb 13.6 g/dL g/dL (12.6-16.3) Hct 39.3 % % (38.0-47.0) MCV 93.8 fL fL (81.5-99.8) MCH 32.5 pg pg (27.9-34.1) MCHC 34.6 g/dL g/dL (32.4-36.7) RDW 13.8 % % (11.5-15.2) Plt Count 257 10^3/uL 10^3/uL (150-400) MPV 11.2 fL fL (8.7-11.7) Neut % (Auto) 58.1 % % (39.3-74.2) Lymph % (Auto) 34.6 % % (15.0-45.0) Ocean % (Auto) 5.8 % % (4.5-13.0) Eos % (Auto) 0.8 % % (0.6-7.6) Baso % (Auto) 0.5 % % (0.3-1.7) Nucleat RBC Rel Count 0.0 % % (0.0-0.2) Absolute Neuts (auto) 3.83 10^3/uL 10^3/uL (1.70-6.50) Absolute Lymphs (auto) 2.27 10^3/uL 10^3/uL (1.00-3.00) Absolute Monos (auto) 0.38 10^3/uL 10^3/uL (0.30-0.80) Absolute Eos (auto) 0.05 10^3/uL 10^3/uL (0.03-0.40) Absolute Basos (auto) 0.03 10^3/uL 10^3/uL (0.02-0.10) Absolute Nucleated RBC 0.00 10^3/uL 10^3/uL (0-0.01) Immature Gran % 0.2 % % (0.0-1.1) Immature Gran # 0.01 10^3/uL 10^3/uL (0.00-0.10) PT 13.4 SEC SEC (12.0-15.0) INR 1.03 (0.83-1.16) APTT 28.0 SEC SEC (23.0-38.0) Sodium 131 mEq/L L mEq/L (134-144) Potassium 4.2 mEq/L mEq/L (3.5-5.2) Chloride 96 mEq/L L mEq/L (97-110) Carbon Dioxide 25 mEq/l mEq/l (22-31) Anion Gap 10 mEq/L mEq/L (8-16) BUN 15 mg/dL mg/dL (7-23) Creatinine 0.6 mg/dL mg/dL (0.6-1.0) Estimated GFR > 60 Glucose 148 mg/dL H mg/dL (70-100) Calcium 9.8 mg/dL mg/dL (8.5-10.4) Total Bilirubin 0.7 mg/dL mg/dL (0.1-1.4) Conjugated Bilirubin 0.4 mg/dL mg/dL (0.0-0.5) Unconjugated Bilirubin 0.3 mg/dL mg/dL (0.0-1.1) AST 28 IU/L IU/L (14-46) ALT 31 IU/L IU/L (9-52) Alkaline Phosphatase 151 IU/L H IU/L (38-126) Total Protein 6.8 g/dL g/dL (6.3-8.2) Albumin 4.2 g/dL g/dL (3.5-5.0) Lipase 82.0 IU/L IU/L (23-300) Urine Color Urine Appearance Urine pH Ur Specific Shelly Urine Protein Urine Ketones Urine Blood Urine Nitrate Urine Bilirubin Urine Urobilinogen Ur Leukocyte Esterase Urine RBC Urine WBC Ur Epithelial Cells Urine Bacteria Ur Culture Indicated? Urine Glucose 10/16/16 10:01 WBC RBC Hgb Hct MCV MCH MCHC RDW Plt Count MPV Neut % (Auto) Lymph % (Auto) Ocean % (Auto) Eos % (Auto) Baso % (Auto) Nucleat RBC Rel Count Absolute Neuts (auto) Absolute Lymphs (auto) Absolute Monos (auto) Absolute Eos (auto) Absolute Basos (auto) Absolute Nucleated RBC Immature Gran % Immature Gran # PT INR APTT Sodium Potassium Chloride Carbon Dioxide Anion Gap BUN Creatinine Estimated GFR Glucose Calcium Total Bilirubin Conjugated Bilirubin Unconjugated Bilirubin AST ALT Alkaline Phosphatase Total Protein Albumin Lipase Urine Color YELLOW Urine Appearance CLEAR Urine pH 6.0 (5.0-7.5) Ur Specific Shel[place] 1.013 (1.002-1.030) Urine Protein NEGATIVE (NEGATIVE) Urine Ketones NEGATIVE (NEGATIVE) Urine Blood NEGATIVE (NEGATIVE) Urine Nitrate NEGATIVE (NEGATIVE) Urine Bilirubin NEGATIVE (NEGATIVE) Urine Urobilinogen NEGATIVE EU EU (0.2-1.0) Ur Leukocyte Esterase 2+ H (NEGATIVE) Urine RBC 3-5 /hpf H /hpf (0-3) Urine WBC 1-3 /hpf /hpf (0-3) Ur Epithelial Cells TRACE /lpf /lpf (NONE-1+) Urine Bacteria TRACE /hpf H /hpf (NONE SEEN) Ur Culture Indicated? INDICATED H (NI) Urine Glucose NEGATIVE (NEGATIVE) Medications Given: Discontinued Medications Sodium Chloride (Ns) 1,000 mls @ 0 mls/hr IV ONCE ONE PRN Reason: Wide Open Stop: 10/16/16 10:05 Last Admin: 10/16/16 10:24 Dose: 1,000 mls Departure - Departure Disposition: Home, Routine, Self-Care Clinical Impression: Urinary tract infection Qualifiers: Urinary tract infection type: site unspecified Hematuria presence: without hematuria Qualified Code(s): N39.0 - Urinary tract infection, site not specified Condition: Good Instructions: Urinary Tract Infection in Women (ED) Additional Instructions: follow-up with primary care physician this week for definitive care. Return to ER for fever, flank pain, nausea vomiting or worsening symptoms. Referrals: Darien Holliday MD [Primary Care Provider] - As per Instructions Prescriptions: levOFLOXACIN [levAQUIN (*)] 750 mg PO DAILY #4 tab
[2016-10-16 10:10] LABS: COLOR YELLOW; LEUKOCYTE ESTERASE,URINE 2+ (NEGATIVE); NITRITE,URINE NEGATIVE (NEGATIVE)
[2016-10-16 10:17] LABS: % IMMATURE GRANULYOCYTES 0.2 % (0.0-1.1); ABSOLUTE IMMATURE GRANULOCYTES 0.01 10^3/uL (0.00-0.10); ADD DIFF? NO; ADD MORPH? NO; ADD SCAN? NO; ATYPICAL LYMPHOCYTE FLAG 0 (0-99); FRAGMENT RBC FLAG 0 (0-99); HEMATOCRIT 39.3 % (38.0-47.0); HEMOGLOBIN 13.6 g/dL (12.6-16.3); LEFT SHIFT FLG 0 (0-99); LIPEMIA HEMOLYSIS FLAG 90 (0-99); MEAN CELL HEMOGLOBIN 32.5 pg (27.9-34.1); MEAN CELL HEMOGLOBIN CONCENTR. 34.6 g/dL (32.4-36.7); MEAN CELL VOLUME 93.8 fL (81.5-99.8); MEAN PLATELET VOLUME 11.2 fL (8.7-11.7); PLATELET CLUMPS FLAG 0 (0-99); PLATELET COUNT 257 10^3/uL (150-400); RED BLOOD CELL COUNT 4.19 10^6/uL (4.18-5.33); RED CELL DISTRIBUTION WIDTH 13.8 % (11.5-15.2)
[2016-10-16 10:25] LABS: INR 1.03 (0.83-1.16); PROTIME(PATIENT) 13.4 SEC (12.0-15.0)
[2016-10-16 10:35] LABS: BACTERIA TRACE /hpf (NONE SEEN)
[2016-10-16 10:40] LABS: ALANINE AMINOTRANSFERASE 31 IU/L (9-52); ALBUMIN 4.2 g/dL (3.5-5.0); ALKALINE PHOSPHATASE 151 IU/L (38-126); ANION GAP 10 mEq/L (8-16); ASPARTATE AMINOTRANSFERASE 28 IU/L (14-46); BILIRUBIN,TOTAL 0.7 mg/dL (0.1-1.4); BILIRUBIN-CONJUGATED 0.4 mg/dL (0.0-0.5); BILIRUBIN-UNCONJUGATED 0.3 mg/dL (0.0-1.1); CALCIUM 9.8 mg/dL (8.5-10.4); CARBON DIOXIDE 25 mEq/l (22-31); CHLORIDE 96 mEq/L (97-110); CREATININE 0.6 mg/dL (0.6-1.0); GLOMERULAR FILTRATION RATE > 60; GLUCOSE 148 mg/dL (70-100); POTASSIUM 4.2 mEq/L (3.5-5.2); SODIUM 131 mEq/L (134-144); TOTAL PROTEIN 6.8 g/dL (6.3-8.2)
[2016-10-16 11:16] VITALS: BP 151/76; PULSE 67; TEMP 98.1; O2SAT 96
== END 2016-10-16 11:15 | disposition home or self-care (01) ==
DX: N39.0 Urinary tract infection, site not specified (principal); I10 Essential (primary) hypertension; B96.89 Other specified bacterial agents as the cause of diseases classified elsewhere; Z90.710 Acquired absence of both cervix and uterus

== ENCOUNTER → 2016-10-22 | Outpatient (CLI) | payer OTHER, MEDICARE | LOC: FLAB 09:12 | PROVIDERS: ATTEND Physician Assistant | DX: Z98.1 Arthrodesis status (principal) ==

== ENCOUNTER 2016-10-27 11:17 | Emergency (ER) | payer OTHER, MEDICARE ==
[2016-10-27 11:35] VITALS: BP 129/63; PULSE 82; RESP 18; TEMP 97.7; O2SAT 98
[2016-10-27 11:54] LABS: COLOR YELLOW; LEUKOCYTE ESTERASE,URINE NEGATIVE (NEGATIVE); NITRITE,URINE NEGATIVE (NEGATIVE)
--- NOTE | 2016-10-27 12:11 | EDPHY ---
General - History Smoking Status: Never smoked Narrative: CHIEF COMPLAINT: UTI HISTORY OF PRESENT ILLNESS: 10-11 days now of suprapubic discomfort. She feels that it is urinary tract infection. However she has been seen twice before this with normal urinalysis and no growth on her cultures. She was 1st placed on Levaquin on the 16 of October. She completed this. She has now been on Keflex and is nearly down with this. She has no fever. No chills. No nausea. No vomiting. No flank pain. No difficulty urinating. No incontinence. No blood in the urine. Symptoms are [id number]. They are worse with urination improved at rest. No radiating pain. She has been told by primary care physician that she may need to see a urologist for this. No other associated complaints or modifying factors. REVIEW OF SYSTEMS: Ten systems reviewed and are negative unless otherwise noted in the HPI EXAMINATION: General Appearance: Alert, no distress Head: normocephalic, atraumatic Eyes: Pupils equal and round, no conjunctival pallor or injection . Bilateral cataracts ENT, Mouth: Mucous membranes moist . Uvula midline. Neck: normal inspection with well-healed surgical incision. She is in a soft collar postoperatively. Respiratory: Lungs are clear to auscultation . No wheezing, rhonchi or crackles. Cardiovascular: Regular rate and rhythm . No murmur. Pulses intact distally. Gastrointestinal: Abdomen is soft . Mild tenderness suprapubic. No tympany. No rigidity. No guarding. No CVA tenderness. Nonacute abdomen. Back: non-tender, no bony abnormalities Neurological: A&O, nonfocal, normal gait Skin: Warm and dry, no rash Extremities: Nontender, no pedal edema Psychiatric: Mood and affect normal DIFFERENTIAL DIAGNOSES: Including but not limited to Cystitis, UTI, enteritis, ovarian cysts, abdominal pain NOS MDM: 12:08 p.m. history and examination that suggest cystitis. Normal external examination. Normal vital signs. She has been on Levaquin and Keflex recently. Her urinalysis is well within normal limits. I do not feel she warrants laboratory studies or other radiation of a CT scan at this time. I feel she should be referred to Urology for workup and further care. The patient is comfortable with this plan as well. Discharged home in stable condition. Continue the previously prescribed antibiotics she is nearly done with. ED Precautions: Worsening pain. Fever. Bloody stools. Bloody emesis. Constipation or diarrhea. SUPERVISION: This patient was independently evaluated without the aide of supervising physician. Case discussed with Dr. Diaz (Francesco Barrios) Medical Decision Making: I did not see this patient while she was in the emergency department. However her care was discussed with the PA while the patient was in the department. I agree with treatment plan and management (Emilio Diaz) - Objective Vital Signs: Initial Vital Signs Temperature (C) 36.5 C 10/27/16 11:25 Heart Rate 82 10/27/16 11:25 Respiratory Rate 18 10/27/16 11:25 Blood Pressure 129/63 H 10/27/16 11:25 O2 Sat (%) 98 10/27/16 11:25 O2 Delivery Mode Room Air Allergies/Adverse Reactions: MARCIANO Inhibitors Allergy (Mild, Verified 10/27/16 11:30) COUGH Sulfa (Sulfonamide Antibiotics) Allergy (Mild, Verified 10/27/16 11:30) Rash nitrofurantoin macrocrystalline [From Macrodantin] Allergy (Unknown, Verified 11:30) phenazopyridine HCl [From Pyridium] Allergy (Unknown, Verified 10/27/16 11:30) opiates Allergy (Intermediate, Uncoded 08/17/16 19:53) Constipation DOGS/CATS Allergy (Mild, Uncoded 08/17/16 19:53) ITCHY EYES/SCRATCHY THROAT/RUNNY NOSE ENVIRONMENTAL Allergy (Mild, Uncoded 08/17/16 19:53) ITCHY EYES/SCRATCHY THROAT/RUNNY NOSE SEASONAL Allergy (Mild, Uncoded 08/17/16 19:53) ITCHY EYES/RUNNY NOSE/SCRATCHY THROAT Home Medications: Medication Instructions Recorded Atorvastatin Calcium [Lipitor 40 40 mg PO HS 07/01/16 mg (*)] Chlorpheniramine Maleate 12 mg PO DAILY PRN 07/01/16 Cholecalciferol Vit D3 [Vitamin D3 2,000 units PO DAILY 07/01/16 (*)] Omeprazole 20 mg PO DAILY 07/01/16 Potassium Cl [Klor-Con 20 meq (*)] 20 meq PO BID@09,12 07/01/16 amLODIPine BESYLATE [Norvasc 5 mg 5 mg PO DAILY 07/01/16 (*)] Hydrochlorothiazide [HCTZ (*)] 25 mg PO DAILY #30 tab 07/02/16 Diazepam [Valium 5 MG (*)] 5 mg PO DAILY PRN #14 tab 09/15/16 HYDROcodone/APAP 10325 [[place] 1 tab PO Q6HRS PRN #30 tab 09/15/16 10/325 (*)] Methocarbamol [Robaxin 750 mg (*)] 750 mg PO QID PRN #30 tab 09/15/16 Sennosides/Docusate Sodium 1 - 2 tab PO BID #0 tab 09/15/16 [Senokot-S] Cephalexin [Keflex (*)] 500 mg PO 10/27/16 Departure - Departure Disposition: Home, Routine, Self-Care Clinical Impression: Cystitis Condition: Good Instructions: Urinary Tract Infection in Women (ED) Additional Instructions: follow up with Urology for definitive care. Return to the ER for any worsening severe pain, flank pain, fever, nausea or vomiting Referrals: Darien Holliday MD [Primary Care Provider] - As per Instructions Andrew Ellis MD [Medical Doctor] - As per Instructions
== END 2016-10-27 12:27 | disposition home or self-care (01) ==
DX: N30.90 Cystitis, unspecified without hematuria (principal)

== ENCOUNTER 2016-11-24 10:28 | Inpatient (IN) | payer OTHER, MEDICARE ==
--- NOTE | 2016-11-24 11:35 | EDPHY ---
H & P Stated Complaint: TRIPPED AND FELL THIS MORNING HIT LOWER L BACK Time Seen by Provider: 11/24/16 10:59 HPI/ROS: CHIEF COMPLAINT: Flank pain, rib pain post mechanical fall HISTORY OF PRESENT ILLNESS: 76-year-old female history chronic cervical spine disease, states that at 5:30 a.m. this morning she is going to the bathroom, sustained a mechanical trip and fall and impacted her left posterior ribs and left flank against her side table. She is complaining of rib pain, abdominal pain. Pain reproducible with deep inspiration, movement, palpation. Denies: Head injury, C-spine pain or injury, dyspnea, straddle injury PRIMARY CARE PROVIDER: Dr. Darien Holliday REVIEW OF SYSTEMS: A ten point review of systems was performed and is negative with the exception of the items mentioned in the HPI PAST MEDICAL/SURGICAL HISTORY: Chronic C-spine disease with chronic C-spine pain. Lymphoma history. Hypertension SOCIAL HISTORY: denies alcohol use at time of incident PHYSICAL EXAM 1) GENERAL: Well-developed, well-nourished, alert and oriented. Answering questions appropriately. 2) HEAD: Normocephalic, atraumatic 3) HEENT: Pupils equal, round, reactive to light bilaterally. Negative Horners. Nasopharynx, oropharynx, clear. No deformity or angulation of nose. No septal hematoma. No rhinorrhea. No oral trauma. Ears bilaterally with normal tympanic membranes. No hemotympanum. No fluid or blood in the external auditory canal. No raccoon eyes. No Roy sign. Teeth are normally aligned with no gross malocclusion, TMJ bilaterally nontender, facial bones nontender including the zygomatic arch, maxilla mandible. 4) NECK: Cervical soft collar is on. 5) LUNGS: Clear to auscultation bilaterally, no wheezes, no rhonchi, no retractions. Left posterior rib pain, erythema. No flaring, no grunting. Moving symmetrically. No crepitus. 6) HEART: Regular rate and rhythm, 7) ABDOMEN: Tender to palpation left upper quadrant. Tender to palpation left flank. 8) MUSCULOSKELETAL: Moving all extremities, no focal areas of tenderness, no obvious trauma. 9) BACK: No midline vertebral tenderness, no fluctuance, no step-off, no obvious trauma, no visual or palpable abnormality. 10) SKIN: No laceration. No abrasion DIFFERENTIAL DIAGNOSIS: In no particular include but not limited to renal contusion, renal fracture, splenic fracture, rib fracture, pneumothorax, hemothorax - Personal History Current Tetanus/Diphtheria Vaccine: Yes Tetanus Vaccine Date: 07-15-12 - Medical/Surgical History Hx Asthma: No Hx Chronic Respiratory Disease: No Hx Diabetes: No Hx Cardiac Disease: No Hx Renal Disease: No Hx Cirrhosis: No Hx Alcoholism: No Hx HIV/AIDS: No Hx Splenectomy or Spleen Trauma: No Other PMH: 03/2016 Left rib fracture, HTN, Non-Hodkins Lyphoma for 8 years, hysterectomy, bilateral hip replacements. anxiiety/NECK SURGERY - Social History Smoking Status: Never smoked Constitutional: Initial Vital Signs Temperature (C) 36.4 C 11/24/16 10:34 Heart Rate 79 11/24/16 10:34 Respiratory Rate 20 11/24/16 10:34 Blood Pressure 103/45 L 11/24/16 10:34 O2 Sat (%) 96 11/24/16 10:34 O2 Delivery Mode Room Air O2 (L/minute) 2 Allergies/Adverse Reactions: MARCIANO Inhibitors Allergy (Mild, Verified 11/24/16 10:31) COUGH Sulfa (Sulfonamide Antibiotics) Allergy (Mild, Verified 11/24/16 10:31) Rash nitrofurantoin macrocrystalline [From Macrodantin] Allergy (Unknown, Verified 10:31) phenazopyridine HCl [From Pyridium] Allergy (Unknown, Verified 11/24/16 10:31) opiates Allergy (Intermediate, Uncoded 08/17/16 19:53) Constipation DOGS/CATS Allergy (Mild, Uncoded 08/17/16 19:53) ITCHY EYES/SCRATCHY THROAT/RUNNY NOSE ENVIRONMENTAL Allergy (Mild, Uncoded 08/17/16 19:53) ITCHY EYES/SCRATCHY THROAT/RUNNY NOSE SEASONAL Allergy (Mild, Uncoded 08/17/16 19:53) ITCHY EYES/RUNNY NOSE/SCRATCHY THROAT Home Medications: Medication Instructions Recorded Atorvastatin Calcium [Lipitor 40 40 mg PO HS 07/01/16 mg (*)] Cholecalciferol Vit D3 [Vitamin D3 2,000 units PO DAILY 07/01/16 (*)] Omeprazole 20 mg PO DAILY 07/01/16 Potassium Cl [Klor-Con 20 meq (*)] 20 meq PO BID@09,12 07/01/16 amLODIPine BESYLATE [Norvasc 5 mg 5 mg PO DAILY 07/01/16 (*)] Hydrochlorothiazide [HCTZ (*)] 25 mg PO DAILY #30 tab 07/02/16 Diazepam [Valium 5 MG (*)] 5 mg PO DAILY PRN #14 tab 09/15/16 HYDROcodone/APAP 10325 [[place] 1 tab PO Q6HRS PRN #30 tab 09/15/16 10325 (*)] Methocarbamol [Robaxin 750 mg (*)] 750 mg PO QID PRN #30 tab 09/15/16 Sennosides/Docusate Sodium 1 - 2 tab PO BID #0 tab 09/15/16 [Senokot-S] ED Images - Male Images Male Torso Head Front/Back: 1 - Pain, erythema 2 - Pain Medical Decision Making - Diagnostics Imaging: Imaging Impressions Abdomen CT 11/24/16 11:29 Impression: 1. Left hydro-pneumothorax and 6 acute left lateral rib fractures. 2. Coronary artery disease. 2. CT Scan of the Abdomen and Pelvis (With Contrast) Clinical Indications: Trauma. Fall. Left-sided pain. Technique: 80 mL of Isovue 300 were given intravenously by machine power injection. Multidetector helical CT imaging was performed from the diaphragm to the symphysis pubis. Dose reduction techniques were utilized. Findings: Abdomen: The liver and spleen are normal without evidence of laceration or subcapsular hematoma formation. The gallbladder and pancreas look normal. The kidneys do not show evidence for laceration, cortical contusion, or obstruction. Incidentally noted is a benign right upper pole 3.4 cm cyst with average Hounsfield units= 3. There is no free air or free fluid. There is atherosclerotic calcification of a normal sized aorta and common iliac arteries. Pelvis: Bilateral total hip replacements cause artifact that obscure detail in the lower pelvis. The urinary bladder is unremarkable. No free fluid in the pelvis. Bowel loops are normal. Bone window evaluation: No fracture is identified. There is a lumbar levoscoliosis with multilevel degenerative spondylosis. Impression: No acute posttraumatic abnormality identified. Results called and discussed with Darryl Saldana, taking a message for Liam Funes, at 11/24/2016 14:13 Final results are concordant with the preliminary interpretation. General information for patients regarding this examination can be found at [email or web address]. If you have questions or comments about this report, please contact me at (hospital) or [phone] (cell). Chest CT 11/24/16 11:29 Impression: 1. Left hydro-pneumothorax and 6 acute left lateral rib fractures. 2. Coronary artery disease. 2. CT Scan of the Abdomen and Pelvis (With Contrast) Clinical Indications: Trauma. Fall. Left-sided pain. Technique: 80 mL of Isovue 300 were given intravenously by machine power injection. Multidetector helical CT imaging was performed from the diaphragm to the symphysis pubis. Dose reduction techniques were utilized. Findings: Abdomen: The liver and spleen are normal without evidence of laceration or subcapsular hematoma formation. The gallbladder and pancreas look normal. The kidneys do not show evidence for laceration, cortical contusion, or obstruction. Incidentally noted is a benign right upper pole 3.4 cm cyst with average Hounsfield units= 3. There is no free air or free fluid. There is atherosclerotic calcification of a normal sized aorta and common iliac arteries. Pelvis: Bilateral total hip replacements cause artifact that obscure detail in the lower pelvis. The urinary bladder is unremarkable. No free fluid in the pelvis. Bowel loops are normal. Bone window evaluation: No fracture is identified. There is a lumbar levoscoliosis with multilevel degenerative spondylosis. Impression: No acute posttraumatic abnormality identified. Results called and discussed with Darryl Saldana, taking a message for Liam Funes, at 11/24/2016 14:13 Final results are concordant with the preliminary interpretation. General information for patients regarding this examination can be found at [email or web address]. If you have questions or comments about this report, please contact me at (hospital) or [phone] (cell). images reviewed by myself ED Course/Re-evaluation: Discussed case Dr. Danielito Voss in the ER. Patient re-evaluated with serial exams most recently at 1:45 p.m.. She is breathing comfortably maintain normal saturations. Discussed her imaging findings significant for multiple rib fracture, left-sided pneumothorax. Plan will be admission to Trauma surgery. No anticoagulant use history. 2:25 p.m.: Consultation with Dr. Christo Quezada, trauma surgery who will admit the patient, plan on placement of Heimlich valve in the emergency department. - Data Points Laboratory Results: Laboratory Results 11/24/16 11:50 11/24/16 11:50 11/24/16 11/24/16 11/24/16 11:50 11:50 11:50 WBC 11.82 10^3/uL H 10^3/uL (3.80-9.50) RBC 3.88 10^6/uL L 10^6/uL (4.18-5.33) Hgb 12.7 g/dL g/dL (12.6-16.3) Hct 36.2 % L % (38.0-47.0) MCV 93.3 fL fL (81.5-99.8) MCH 32.7 pg pg (27.9-34.1) MCHC 35.1 g/dL g/dL (32.4-36.7) RDW 14.7 % % (11.5-15.2) Plt Count 273 10^3/uL 10^3/uL (150-400) MPV 11.0 fL fL (8.7-11.7) Neut % (Auto) 87.2 % H % (39.3-74.2) Lymph % (Auto) 7.4 % L % (15.0-45.0) [place] % (Auto) 4.8 % % (4.5-13.0) Eos % (Auto) 0.0 % L % (0.6-7.6) Baso % (Auto) 0.2 % L % (0.3-1.7) Nucleat RBC Rel Count 0.0 % % (0.0-0.2) Absolute Neuts (auto) 10.30 10^3/uL H 10^3/uL (1.70-6.50) Absolute Lymphs (auto) 0.88 10^3/uL L 10^3/uL (1.00-3.00) Absolute Monos (auto) 0.57 10^3/uL 10^3/uL (0.30-0.80) Absolute Eos (auto) 0.00 10^3/uL L 10^3/uL (0.03-0.40) Absolute Basos (auto) 0.02 10^3/uL 10^3/uL (0.02-0.10) Absolute Nucleated RBC 0.00 10^3/uL 10^3/uL (0-0.01) Immature Gran % 0.4 % % (0.0-1.1) Immature Gran # 0.05 10^3/uL 10^3/uL (0.00-0.10) PT 12.8 SEC SEC (12.0-15.0) INR 0.97 (0.83-1.16) APTT 26.0 SEC SEC (23.0-38.0) Sodium 126 mEq/L L mEq/L (134-144) Potassium 4.4 mEq/L mEq/L (3.5-5.2) Chloride 91 mEq/L L mEq/L (97-110) Carbon Dioxide 28 mEq/l mEq/l (22-31) Anion Gap 7 mEq/L L mEq/L (8-16) BUN 11 mg/dL mg/dL (7-23) Creatinine 0.5 mg/dL L mg/dL (0.6-1.0) Estimated GFR > 60 Glucose 128 mg/dL H mg/dL (70-100) Calcium 9.6 mg/dL mg/dL (8.5-10.4) Medications Given: Discontinued Medications Morphine Sulfate (Morphine) 4 mg IVP EDNOW ONE Stop: 11/24/16 12:46 Last Admin: 11/24/16 12:52 Dose: 4 mg Ondansetron HCl (Zofran) 4 mg IVP EDNOW ONE Stop: 11/24/16 12:46 Last Admin: 11/24/16 12:52 Dose: 4 mg Departure - Departure Disposition: [facility] Inpatient Acute Clinical Impression: Hyponatremia Multiple fractures of ribs Qualifiers: Encounter type: initial encounter Fracture type: closed Laterality: left Qualified Code(s): S22.42XA - Multiple fractures of ribs, left side, initial encounter for closed fracture Pneumothorax Qualifiers: Pneumothorax type: traumatic Encounter type: initial encounter Qualified Code(s ): S27.0XXA - Traumatic pneumothorax, initial encounter Condition: Fair
[2016-11-24 12:12] LABS: ANION GAP 7 mEq/L (8-16); CALCIUM 9.6 mg/dL (8.5-10.4); CARBON DIOXIDE 28 mEq/l (22-31); CHLORIDE 91 mEq/L (97-110); CREATININE 0.5 mg/dL (0.6-1.0); GLOMERULAR FILTRATION RATE > 60; GLUCOSE 128 mg/dL (70-100); POTASSIUM 4.4 mEq/L (3.5-5.2); SODIUM 126 mEq/L (134-144)
[2016-11-24] MEDS ORDERED: IOPAMIDOL (ISOVUE-300) 100 ML BTL IV ONE (12:39)
[2016-11-24] MEDS ORDERED: ONDANSETRON 4 MG/2 ML VIAL IVP ONE (12:45)
[2016-11-24 13:23] LABS: % IMMATURE GRANULYOCYTES 0.4 % (0.0-1.1); ABSOLUTE IMMATURE GRANULOCYTES 0.05 10^3/uL (0.00-0.10); ADD DIFF? NO; ADD MORPH? NO; ADD SCAN? NO; ATYPICAL LYMPHOCYTE FLAG 0 (0-99); FRAGMENT RBC FLAG 0 (0-99); HEMATOCRIT 36.2 % (38.0-47.0); HEMOGLOBIN 12.7 g/dL (12.6-16.3); LEFT SHIFT FLG 0 (0-99); LIPEMIA HEMOLYSIS FLAG 90 (0-99); MEAN CELL HEMOGLOBIN 32.7 pg (27.9-34.1); MEAN CELL HEMOGLOBIN CONCENTR. 35.1 g/dL (32.4-36.7); MEAN CELL VOLUME 93.3 fL (81.5-99.8); PLATELET CLUMPS FLAG 0 (0-99); PLATELET COUNT 273 10^3/uL (150-400); RED BLOOD CELL COUNT 3.88 10^6/uL (4.18-5.33); RED CELL DISTRIBUTION WIDTH 14.7 % (11.5-15.2)
[2016-11-24 13:58] LABS: INR 0.97 (0.83-1.16); PROTIME(PATIENT) 12.8 SEC (12.0-15.0)
[2016-11-24] MEDS ORDERED: HYDROmorphONE/DILAUDID 1 MG/ML SYR ONE (14:42)
[2016-11-24] MEDS: HYDROmorphONE/DILAUDID 1 MG/ML SYR IVP PRN (14:54)
[2016-11-24] MEDS ORDERED: ONDANSETRON 4 MG/2 ML VIAL IVP PRN (15:37)
[2016-11-24] MEDS ORDERED: NS 1,000 ML IV SCH (15:45)
--- NOTE | 2016-11-24 17:14 | GHP ---
[f rep st] PREOP HISTORY AND PHYSICAL DATE OF ADMISSION: 11/24/2016 ADMITTING DIAGNOSES: 1. Fall with acute fractures of left ribs 7, 8 (in two places), 9 and 10, with old fractures of ribs 10 and 11. 2. Pneumothorax, with small hydrothorax. 3. Hyponatremia. 4. Waldenstrom's macroglobulinemia. HISTORY: At 5:15 to 5:30 this morning, she went to the bathroom and felt she tripped over her feet, impacted a small bedside table. With her 's help , she got up, went to the bathroom, and went back to bed. Because of the discomfort, she could not sleep, and at 6:30 she got up and took a hydrocodone pill which did not take care of her pain. She then got up and had a half a banana, and went to the emergency room at 10:30. She never complained of shortness of breath. She has a history of rib fractures in the past. She smoked from ages [age] at one pack per day. She has not a recent upper respiratory tract infection. SOCIAL HISTORY: She drinks approximately 1-3 glasses of wine daily. ALLERGIES: She has an adverse reaction to MARCIANO inhibitors manifested by a cough. Sulfa drugs give her a rash. She is unclear as to her reaction to Pyridium. She has an adverse reaction to Macrodantin. She is sensitive to opiates. MEDICATIONS: Include vitamin D3 2000 international units daily, atorvastatin 40 mg daily, Klor-Con 10 mEq daily, hydrochlorothiazide 25 mg daily, amlodipine 5 mg daily, aspirin 81 mg daily, Prilosec 20 mg daily. Her p.r.n. medications include Valium 5 mg daily, Zyrtec, Chlor-Trimeton, ibuprofen and Ambien. PAST SURGICAL HISTORY: Her surgeries have included bilateral cataract extractions with interocular lens placement. She has had 2 hip replacements, with the first one, the tissue was sent to the [facility] and the diagnosis of a non-Hodgkin's lymphoma (Waldenstrom's macroglobulinemia) was returned. Dr. Tirado is her oncologist. She has not undergone any treatment at this time, and it has been over 10 years. She had a total abdominal hysterectomy and bilateral salpingo-oophorectomy for fibroids and menstrual pain. She has had 2 vaginal births. She has had a decompressive laminectomy in August of 2016. Her next followup appointment with Dr. Frankie Delcid is on December 25. There is no history of rheumatic fever, tuberculosis or hepatitis. She does believe she had transfusions with her second hip replacement. REVIEW OF SYSTEMS: She wears lenses to read. She has had hypertension for 30 years. She has had an elevated cholesterol for 20 years. She has a left lower dental crown. She uses her soft collar on an as-needed basis. She has a lower back problem, which will be addressed when her neck has totally healed. She does have GERD on a daily basis unless she takes Prilosec. She has had a slight history of asthma in the past. Allergy shots have been ineffective for her. She uses the albuterol inhalers on a very intermittent basis. Her last mammogram was 1 year ago. She does have stress incontinence. In fact, her UA and urinary workup are pending. There are no limits in her activities. There is no history of steroid use. LABORATORY DATA: Reveal a white count of 11.8, with 87.2% neutrophils, hematocrit of 36, platelets of 273,000. INR is 9.7. Her sodium was 126, potassium is 4.4, chloride is 91, BUN is 11, creatinine is 0.5, glucose is 128. PHYSICAL EXAMINATION: GENERAL: She is awake and alert, pleasant and communicative. HEENT: Her skull is normocephalic and atraumatic. She has normal dental occlusion. There is no obvious head trauma nor does she report a loss of consciousness. There is no Roy eyes or Roy sign. There are no raccoon eyes. NECK: She wears a soft collar on a p.r.n. basis. It is removed for examination. Neck is nontender. There is no tenderness to her clavicles. BACK: Unremarkable. LUNGS: Clear to auscultation. I did not press on her chest because of the known rib fractures. Note is made rib 8 has a fracture both laterally and posteriorly. A Heimlich valve pneumothorax tube is placed ( see dictation elsewhere). ABDOMEN: Soft and nontender. PELVIS: Stable to AP and lateral compression. EXTREMITIES: Unremarkable. IMPRESSION: Patient who fell has fractures of five ribs, which are acute, with one rib fracture in two spots, and two fractures of ribs 10, 11. Pneumothorax is essentially resolved the pneumothorax tube. She was admitted for comfort care, and treatment of her hyponatremia. A note is made a urinalysis will also be obtained. /[id number]/MODL MTDD
[2016-11-24] MEDS: LIDOCAINE 5% 1 EA PATCH TD SCH (17:36)
[2016-11-24] MEDS: CYCLOBENZAPRINE 10 MG TAB PO PRN (17:46)
[2016-11-24] MEDS ORDERED: IBUPROFEN 600 MG TAB PO SCH (18:00)
[2016-11-24] MEDS ORDERED: IBUPROFEN 200 MG TAB PO SCH (18:00)
[2016-11-24] MEDS ORDERED: MAGNESIUM HYDROXIDE 30 ML UDCUP PO PRN (19:20)
[2016-11-24] MEDS ORDERED: LACTULOSE 20 GM/30 ML UDCUP PO PRN (19:20)
[2016-11-24] MEDS ORDERED: BISACODYL 10 MG SUPP PR PRN (19:20)
--- NOTE | 2016-11-24 20:08 | GOP ---
[f rep st] OPERATIVE REPORT DATE OF OPERATION: 11/24/2016 SURGEON: Christo Quezada MD PREOPERATIVE DIAGNOSIS: Multiple rib fractures, left chest, with pneumothorax. POSTOPERATIVE DIAGNOSIS: Multiple rib fractures, left chest, with pneumothorax. PROCEDURE PERFORMED: Placement of a left anterior chest Heimlich valve pneumothorax tube. FINDINGS: Multiple rib fractures, left chest, with pneumothorax. DESCRIPTION OF PROCEDURE: The patient was carefully identified and consent was signed. A surgical time-out was carried out. The left chest was carefully prepped with ChloraPrep. A sterile field was developed once the ChloraPrep had dried. The skin was anesthetized over the left 3rd rib. The perichondrium was anesthetized, as was the 2nd and 3rd intercostal space just over the top of the 3rd rib. The skin was incised. The pneumothorax tube was carefully advanced into the pleural space. It was connected to the Heimlich valve system. Condensation was noted in the tubing. The tube was secured at the skin with 2-0 silk suture and also at the hub with 2-0 silk suture. A sterile dressing with a medium sized Tegaderm was placed. Note is made that approximately 8 cc 1% Xylocaine was used during the course of the procedure. She also received 0.5 mg of Dilaudid IV. Followup film shows the tube in good position and the pneumothorax reduced to just a very small rim. The patient tolerated the procedure well. /[id number]/MODL MTDD
[2016-11-24] MEDS: PATCH REMOVAL 1 EA PATCH TD SCH (21:10)
[2016-11-24] MEDS: SENNOSIDES/DOCUSATE SODIUM TAB PO SCH (21:10)
[2016-11-24] MEDS: ACETAMINOPHEN 500 MG TAB PO SCH (21:10)
[2016-11-24 21:43] LABS: COLOR YELLOW; LEUKOCYTE ESTERASE,URINE NEGATIVE (NEGATIVE); NITRITE,URINE NEGATIVE (NEGATIVE)
[2016-11-25 04:43] LABS: % IMMATURE GRANULYOCYTES 0.2 % (0.0-1.1); ABSOLUTE IMMATURE GRANULOCYTES 0.02 10^3/uL (0.00-0.10); ADD DIFF? NO; ADD MORPH? NO; ADD SCAN? NO; ATYPICAL LYMPHOCYTE FLAG 0 (0-99); FRAGMENT RBC FLAG 0 (0-99); HEMATOCRIT 36.6 % (38.0-47.0); HEMOGLOBIN 12.5 g/dL (12.6-16.3); LEFT SHIFT FLG 0 (0-99); LIPEMIA HEMOLYSIS FLAG 90 (0-99); MEAN CELL HEMOGLOBIN 32.8 pg (27.9-34.1); MEAN CELL HEMOGLOBIN CONCENTR. 34.2 g/dL (32.4-36.7); MEAN CELL VOLUME 96.1 fL (81.5-99.8); MEAN PLATELET VOLUME 10.5 fL (8.7-11.7); PLATELET CLUMPS FLAG 20 (0-99); PLATELET COUNT 265 10^3/uL (150-400); RED BLOOD CELL COUNT 3.81 10^6/uL (4.18-5.33); RED CELL DISTRIBUTION WIDTH 14.8 % (11.5-15.2)
[2016-11-25] MEDS: ACETAMINOPHEN 500 MG TAB PO SCH ×3 (04:59→21:14)
[2016-11-25 05:02] LABS: ANION GAP 6 mEq/L (8-16); CALCIUM 9.8 mg/dL (8.5-10.4); CARBON DIOXIDE 27 mEq/l (22-31); CHLORIDE 95 mEq/L (97-110); CREATININE 0.5 mg/dL (0.6-1.0); GLOMERULAR FILTRATION RATE > 60; GLUCOSE 94 mg/dL (70-100); POTASSIUM 3.8 mEq/L (3.5-5.2); SODIUM 128 mEq/L (134-144)
[2016-11-25] MEDS ORDERED: CETIRIZINE 10 MG TAB PO PRN (07:50)
[2016-11-25] MEDS: SENNOSIDES/DOCUSATE SODIUM TAB PO SCH ×2 (08:31→21:15)
[2016-11-25] MEDS: CHOLECALCIFEROL VIT D3 1,000 UNITS TAB PO SCH (08:31)
[2016-11-25] MEDS: POTASSIUM CL 10 MEQ TAB PO SCH (08:31)
[2016-11-25] MEDS: amLODIPine BESYLATE 5 MG TAB PO SCH (08:32)
[2016-11-25] MEDS: PANTOPRAZOLE SODIUM 40 MG TAB PO SCH (08:32)
[2016-11-25] MEDS: LIDOCAINE 5% 1 EA PATCH TD SCH (08:39)
[2016-11-25] MEDS ORDERED: NON-FORMULARY NEW DRUG (Omeprazole [Omeprazole] 20 MG) PO SCH (09:00)
[2016-11-25] MEDS ORDERED: ENOXAPARIN 30 MG/0.3 ML SYR SC SCH (09:00)
--- NOTE | 2016-11-25 09:34 | SOAPPROG ---
SOAP Progress Note Assessment/Plan: PAD#1 11/25/16 09:31 Assessment: Pain control improving. Lug up. No air leak More rib fractures noted. Na chronically low according to patient, but up to 128 this AM Plan: F/U CXR in AM Hold HCTZ x 24 more hours Subjective: Pain less - tolerable Objective: Vital Signs Temp Pulse Resp BP Pulse Ox 36.5 C 77 14 156/73 H 99 11/25/16 07:14 11/25/16 07:14 11/25/16 07:14 11/25/16 08:32 11/25/16 07:14 Laboratory Results 11/25/16 04:23 11/25/16 04:23 11/24/16 11/25/16 11/26/16 05:59 05:59 05:59 Intake Total 250 Balance 250 PT 12.8 SEC (12.0-15.0) 11/24/16 11:50 INR 0.97 (0.83-1.16) 11/24/16 11:50 Physical Exam - Physical Exam General Appearance: WD/WN, alert, no apparent distress Neck: non-tender, full range of motion, supple Respiratory: chest non-tender, lungs clear, normal breath sounds (No air leak from chest tube) Abdomen: normal bowel sounds, non-tender, soft Pelvic Exam: deferred Rectal: deferred Back: Normal inspection Skin: normal color, warm/dry Neuro/Psych: alert, normal mood/affect, oriented x 3 ICD10 Worksheet Patient Problems: Problems Problem Status Onset Hyponatremia Acute Multiple fractures of ribs Acute Pneumothorax Acute Arthrodesis status Acute Back pain Acute Cervical spine degeneration Acute Dehydration Acute Hyponatremia Acute Lower abdominal pain Acute Lumbar radiculopathy Acute Spinal stenosis of cervical region Acute
[2016-11-25] MEDS: DIAZEPAM 5 MG TAB PO PRN ×2 (12:13→21:15)
[2016-11-25] MEDS: HYDROmorphONE/DILAUDID 1 MG/ML SYR IVP PRN (15:26)
[2016-11-25] MEDS: ATORVASTATIN CALCIUM 40 MG TAB PO SCH (21:15)
[2016-11-25] MEDS: PATCH REMOVAL 1 EA PATCH TD SCH (21:16)
--- NOTE | 2016-11-25 21:47 | GCON ---
[f rep st] CONSULTATION REFERRING PHYSICIAN: Christo Quezada MD REASON FOR CONSULTATION: Medical management. HISTORY OF PRESENT ILLNESS: Briefly, the patient is a 76-year-old female with known lumbar stenosis and history of non-Hodgkin lymphoma. She has significant spine disease with upper extremity numbness and in August she had a posterior cervical decompression at the C2-C7 with a C3-C7 laminectomy. She has done well postop with surgery. She was living at home with her . She had gotten up early in the morning around 5:15 and tripped. She is not clear if she caught her foot on the bedside, but she lost her balance and landed on the table, falling on her left side. She denies any dizziness or any type of lightheadedness. She simply fell and sustained rib fractures with an associated pneumothorax and a small hydrothorax. During my interview, her main complaint is pain at the left chest wall area where the Pleur-Evac is located. She would prefer to not take any narcotics. She states her pain is at a level 5.5 based on a scale of 1-10. PAST MEDICAL HISTORY: 1. Non-Hodgkin lymphoma. Sees Dr. Tirado in the outpatient setting. 2. Hyponatremia. 3. Hypertension. 4. Hyperlipidemia. PAST SURGICAL HISTORY: 1. Total abdominal hysterectomy. 2. Bilateral cataract surgery. 3. Hip replacements. 4. Status posterior cervical decompression at C2-C7, C3-C7 laminectomy in August 2016. SOCIAL HISTORY: She does not smoke. She drinks 2-3 drinks a day. She is . She has 2 biologic daughters and 1 daughter from her . 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 She does not smoke. FAMILY HISTORY: Her mom at age 91 from chronic renal failure and was on dialysis. Her father is unknown. ALLERGIES: MARCIANO inhibitor causes her to cough. Sulfa drugs give her rash. She says she has a bad reaction to Macrodantin and long-acting narcotics. MEDICATIONS: Zyrtec 10 mg daily, Colace 100 mg p.o. b.i.d., aspirin 81 mg daily , Tylenol Extra Strength 500 to 1000 mg t.i.d. p.r.n., melatonin 3 mg p.o. q.h.s., Senokot-S 1-2 tabs p.o. b.i.d. p.r.n., K-[place] Con 10 mEq daily, ibuprofen 200-400 mg daily p.r.n., omeprazole 20 mg daily, hydrochlorothiazide 25 mg daily, Valium 5 mg daily p.r.n., vitamin D 2000 units daily, Lipitor 40 mg p.o. q.h.s., Norvasc 5 mg daily. REVIEW OF SYSTEMS: A 10-point review of systems was performed and was negative other than pertinent positives in HPI and past medical history. PHYSICAL EXAM: GENERAL: The patient is a 76-year-old female who appears to be in fair health. VITAL SIGNS: Blood pressure is 112/62, heart rate is 74, respiratory rate is 18, O2 saturation on room air 96%, temperature is 36.8 Celsius. HEENT: Pupils are equal and reactive. EOMs are intact. ENT: She has normal ears, hearing intact. Normal lips, teeth. Oral airway is intact. NECK: Trachea is midline. She has a soft collar in place. CARDIOVASCULAR: She has a regular rate and rhythm. No murmurs, rubs, or gallops noted. 2+ pedal pulses. CHEST: Lungs she has poor respiratory effort with poor inspiration due to the rib fractures. No wheezing, rales, rhonchi noted. Breath sounds are very diminished on the left base. ABDOMEN: Soft, nontender. SKIN: No ulcers or rash noted. Warm, dry and intact. MUSCULOSKELETAL: Normal, equal upper and lower extremity strength. PSYCHIATRIC: She is alert and oriented. Normal mood and affect. Normal judgment, insight and normal memory. DATA REVIEWED: Her most recent CBC shows a white blood cell count of 9.28, hemoglobin 12.5, hematocrit 36.6, platelet count is 265. Chemistry: Sodium is 128, potassium 3.8, chloride 95, BUN 9, creatinine 0.5, glucose 94, calcium of 9.8. Urinalysis was performed on November 24, shows 1+ ketones, with an elevated urine specific gravity. 1. CT of the chest was performed that showed a left hydropneumothorax, 6 acute left lateral rib fractures, and coronary artery disease. 2. CT of the abdomen and pelvis showed bilateral total hip replacements. The urinary bladder is unremarkable. No free-fluid in the pelvis. Bowel loops are noted to be normal. Nothing acute was noted. 3. Chest x-ray showed a left chest tube in place. She had a small left pneumothorax without evidence for tension. She had a repeat chest x-ray today and it notes that there was a kink at the left chest tube, but diminished left pneumothorax with no definite pneumothorax visualized, otherwise stable. I reviewed her care with Dr. Christo Quezada. ASSESSMENT/PLAN: 1. Multiple rib fractures with placement of a left anterior chest Heimlich valve, pneumothorax tube. I have encouraged her to use her IS regularly to avoid any risk of pneumonia. She is very motivated to do this. 2. Pain due to the rib fractures. She prefers to stay on Vicodin. She would like to avoid any other narcotics. She does poorly with OxyContin and OxyIR. I have offered her a trial of oral Dilaudid. At this time, she would like to hold off. She says tramadol does not do well for her pain. She will give it more thought. 3. Hyponatremia. She has a history of this. Will hold hydrochlorothiazide.Repeat labs in a.m. 4. Hypertension. Blood pressure is stable. On amlodipine. 5. Hyperlipidemia. Lipitor. 6. Constipation. Resumed her home medications. 7. Deep venous thrombosis prophylaxis. She is on low molecular weight heparin as well as athrombic pumps. Thank you for this consultation. The hospitalist will continue to follow along with you while the patient is in the hospital. /[id number]/MODL MTDD
[2016-11-26] MEDS: CYCLOBENZAPRINE 10 MG TAB PO PRN ×2 (00:58→21:34)
[2016-11-26] MEDS: ACETAMINOPHEN 500 MG TAB PO SCH (05:10)
[2016-11-26 06:20] LABS: ANION GAP 7 mEq/L (8-16); CALCIUM 9.5 mg/dL (8.5-10.4); CARBON DIOXIDE 25 mEq/l (22-31); CHLORIDE 97 mEq/L (97-110); CREATININE 0.5 mg/dL (0.6-1.0); GLOMERULAR FILTRATION RATE > 60; GLUCOSE 96 mg/dL (70-100); POTASSIUM 4.3 mEq/L (3.5-5.2); SODIUM 129 mEq/L (134-144)
--- NOTE | 2016-11-26 09:54 | TRAUMAPN ---
Assessment/Plan: 76yo female s/p mech fall c multiple L sided rib fx c ptx - Pain appears well controlled on APAP alone, increased the frequency this AM. Patient adamant that she doesnt want PO narcotics - CXR pending this AM. If lung is up, will d/c CT today - PT note yesterday said likely ok for home. Will touch base to ensure she is safe for home dc but once CT is out ok for dc later today Subjective: pain appears controlled, tolerating diet Objective: Vital Signs Temp Pulse Resp BP Pulse Ox 36.5 C 65 16 155/76 H 96 11/26/16 08:39 11/26/16 08:39 11/26/16 08:39 11/26/16 08:39 11/26/16 08:39 Laboratory Results 11/26/16 04:54 11/25/16 11/26/16 11/27/16 05:59 05:59 05:59 Intake Total 400 300 Output Total 550 Balance -150 300 PT 12.8 SEC (12.0-15.0) 11/24/16 11:50 INR 0.97 (0.83-1.16) 11/24/16 11:50
[2016-11-26] MEDS: ENOXAPARIN 40 MG/0.4 ML SYR SC SCH (10:20)
[2016-11-26] MEDS: CHOLECALCIFEROL VIT D3 1,000 UNITS TAB PO SCH (10:20)
[2016-11-26] MEDS: LIDOCAINE 5% 1 EA PATCH TD SCH (10:21)
[2016-11-26] MEDS: POTASSIUM CL 10 MEQ TAB PO SCH (10:22)
[2016-11-26] MEDS: amLODIPine BESYLATE 5 MG TAB PO SCH (10:22)
[2016-11-26] MEDS: PANTOPRAZOLE SODIUM 40 MG TAB PO SCH (10:22)
[2016-11-26] MEDS: SENNOSIDES/DOCUSATE SODIUM TAB PO SCH ×2 (10:22→21:33)
[2016-11-26] MEDS: POLYETHYLENE GLYCOL 3350 17 GM PKT PO PRN (10:54)
[2016-11-26] MEDS: DIAZEPAM 5 MG TAB PO PRN ×2 (12:09→21:34)
[2016-11-26] MEDS ORDERED: BISACODYL 10 MG SUPP PR ONE (12:41)
--- NOTE | 2016-11-26 13:26 | HOSPPROG ---
Hospitalist Progress Note Assessment/Plan: 76 yo F with PMH of lumbar stenosis, NHL in remission admitted s/p fall with multiple rib fractures and small ptx # acute left sided rib fractures: on personal review of chest ct, 6 acute left sided rib fxs noted. She has associated ptx/hydrothorax. Pain is currently not optimally controlled however patient declines opiates. She is using IS and ambulating. Continue ambulation, CDB, IS. # ptx: with chest tube in place, on personal review of cxr from today it does appear that ptx has resolved, suspect CT to be removed today per gen surg # constipation: patient state she has not had BM in 4 days despite fairly aggressive bowel regimen, will provide suppository and enema prn # hyponatremia: relatively mild and chronic, essentially at baseline, holding hctz for now # hx of cervical decompression and lami: continues to wear soft c collar intermittently, f/u with Bhavin # chronic medical issues: lumbar stenosis, htn, hld--continue op mgmt # dispo: IP status, will need > 48 hrs stay for eval/mgmt of above Pt new to my care. old records reviewed and summarized as above. Subjective: no significant overnight events, patient continues to have pain on her left side that is not changed significantly, she feels it is adequately controlled for the most part, c/o constipation Objective: Vital Signs Temp Pulse Resp BP Pulse Ox 36.5 C 65 16 142/79 H 96 11/26/16 08:39 11/26/16 08:39 11/26/16 08:39 11/26/16 10:22 11/26/16 08:39 Laboratory Results 11/26/16 04:54 11/25/16 11/26/16 11/27/16 05:59 05:59 05:59 Intake Total 400 300 Output Total 550 Balance -150 300 PT 12.8 SEC (12.0-15.0) 11/24/16 11:50 INR 0.97 (0.83-1.16) 11/24/16 11:50 awake alert soft c collar in place anicteric op clear rrr no mrg cta to ant exam poor insp effort ct in place soft nt nd no cce warm dry well perfused oriented appropriate ICD10 Worksheet Patient Problems: Problems Problem Status Onset Hyponatremia Acute Dehydration Acute Lower abdominal pain Acute Lumbar radiculopathy Acute Back pain Acute Spinal stenosis of cervical region Acute Cervical spine degeneration Acute Arthrodesis status Acute Multiple fractures of ribs Acute Pneumothorax Acute Hyponatremia Acute
--- NOTE | 2016-11-26 14:17 | WOCRNPDOC ---
WOCRN Advanced Assessment Note - Skin Integrity Problem, Advanced Assess Coccyx Dressing Type: Allevyn Life Exudate Amount: None Mary Wound Tissue: Blanching, Erythema Skin Integrity Problem Comment: Healed intact skin and tissue with mild blanching erythema. No concerns. No pressure injury invovlement at this time. Pt reports she has a cyst there that drains occasionally. Area non tender. Please reconsult prn.
[2016-11-26] MEDS ORDERED: MAGNESIUM CITRATE 300 ML BOTTLE PO ONE (17:04)
[2016-11-26] MEDS: ACETAMINOPHEN 500 MG TAB PO PRN ×2 (17:29→23:44)
[2016-11-26] MEDS: ATORVASTATIN CALCIUM 40 MG TAB PO SCH (21:33)
[2016-11-26] MEDS: PATCH REMOVAL 1 EA PATCH TD SCH (21:36)
[2016-11-27] MEDS: ACETAMINOPHEN 500 MG TAB PO PRN ×2 (05:39→16:59)
--- NOTE | 2016-11-27 09:06 | TRAUMAPN ---
- Problem/Surgery Performed (1) Fall at home Qualifiers: Encounter type: initial encounter Qualified Code(s): W19.XXXA - Unspecified fall, initial encounter; Y92.099 - Unspecified place in other non- institutional residence as the place of occurrence of the external cause (3) Multiple fractures of ribs Qualifiers: Encounter type: initial encounter Fracture type: closed Laterality: left Fracture healing: F Qualified Code(s): S22.42XA - Multiple fractures of ribs, left side, initial encounter for closed fracture (4) Pneumothorax Qualifiers: Pneumothorax type: traumatic Encounter type: initial encounter Qualified Code(s): S27.0XXA - Traumatic pneumothorax, initial encounter Assessment/Plan: s/p fall with blunt force injury left chest/rib fx/pneumothorax s/p CT removal yesterday diminished left chest breath sounds today Rec: continue supportive care/check CXR stable for discharge home otherwise S MD Marva, FACS Subjective: awake and alert large evacuation after Mag Citrate last night Objective: Vital Signs Temp Pulse Resp BP Pulse Ox 36.4 C 91 18 161/84 H 94 11/27/16 07:16 11/27/16 07:16 11/27/16 07:16 11/27/16 07:16 11/27/16 07:16 Laboratory Results 11/26/16 04:54 11/26/16 11/27/16 11/28/16 05:59 05:59 05:59 Intake Total 400 850 Output Total 550 Balance -150 850 PT 12.8 SEC (12.0-15.0) 11/24/16 11:50 INR 0.97 (0.83-1.16) 11/24/16 11:50 Physical Exam - Physical Exam General Appearance: alert, no apparent distress Neck: other (wearing soft cervical collar) Respiratory: lungs clear (decrease breath sounds on the left/tender left lateral without crepitance) Cardiac/Chest: regular rate, rhythm Abdomen: non-tender, soft Skin: warm/dry Neuro/Psych: alert, normal mood/affect, oriented x 3
[2016-11-27] MEDS: CHOLECALCIFEROL VIT D3 1,000 UNITS TAB PO SCH (09:23)
[2016-11-27] MEDS: ENOXAPARIN 40 MG/0.4 ML SYR SC SCH (09:23)
[2016-11-27] MEDS: PANTOPRAZOLE SODIUM 40 MG TAB PO SCH (09:24)
[2016-11-27] MEDS: amLODIPine BESYLATE 5 MG TAB PO SCH (09:24)
[2016-11-27] MEDS: SENNOSIDES/DOCUSATE SODIUM TAB PO SCH ×2 (09:24→19:40)
[2016-11-27] MEDS: POTASSIUM CL 10 MEQ TAB PO SCH (09:24)
[2016-11-27] MEDS: LIDOCAINE 5% 1 EA PATCH TD SCH (09:44)
--- NOTE | 2016-11-27 14:47 | SOAPPROG ---
Downtime Inpatient MD Late Entry SOAP Note: repeat CXR shows small apical pneumothorax/stable small left pleural effusion I recommended delaying discharge and repeating CXR in the AM/continue monitoring O2 sat S MD Marva, FACS
--- NOTE | 2016-11-27 15:45 | HOSPPROG ---
Hospitalist Progress Note Assessment/Plan: 76 yo F with PMH of lumbar stenosis, NHL in remission admitted s/p fall with multiple rib fractures and small ptx # acute left sided rib fractures: on personal review of chest ct, 6 acute left sided rib fxs noted. She has associated ptx/hydrothorax as next. # ptx: with chest tube now removed, on personal review of repeat cxr small reaccumulation of tiny left sided ptx noted. Surg would like patient to remain overnight for repeat cxr in am--she is very distraught about staying. # constipation: had bm this am after multiple rounds of meds, now complaining that she has a lot of gas and discomfort related to all the bowel meds # hyponatremia: relatively mild and chronic, essentially at baseline, holding hctz # htn: as above holding hctz, bp has been reasonably well controlled for her age on amlodipine alone # hx of cervical decompression and lami: continues to wear soft c collar intermittently, f/u with Bhavin # chronic medical issues: lumbar stenosis, htn, hld--continue op mgmt # dispo: IP status, will need > 48 hrs stay for eval/mgmt of above Subjective: no significant overnight events, ct out, feels well other than very sad and distraught that she is not being dc'ed today Objective: Vital Signs Temp Pulse Resp BP Pulse Ox 36.6 C 82 16 149/73 H 95 11/27/16 15:24 11/27/16 15:24 11/27/16 15:24 11/27/16 15:24 11/27/16 15:24 Laboratory Results 11/26/16 04:54 11/26/16 11/27/16 11/28/16 05:59 05:59 05:59 Intake Total 400 850 Output Total 550 Balance -150 850 PT 12.8 SEC (12.0-15.0) 11/24/16 11:50 INR 0.97 (0.83-1.16) 11/24/16 11:50 awake alert anicteric op clear rrr no mrg cta b normal wob soft nt nd no cce warm dry well perfused oriented tearful - Time Spent With Patient Time Spent with Patient: greater than 35 minutes Time Spent with Patient: Greater than 35 minutes spent on this patients care, greater than 50% of time spent counseling, educating, and coordinating care regarding the above mentioned plan. ICD10 Worksheet Patient Problems: Problems Problem Status Onset Hyponatremia Acute Dehydration Acute Lower abdominal pain Acute Lumbar radiculopathy Acute Back pain Acute Spinal stenosis of cervical region Acute Cervical spine degeneration Acute Arthrodesis status Acute Multiple fractures of ribs Acute Pneumothorax Acute Hyponatremia Acute Fall at home Acute
[2016-11-27] MEDS: POLYETHYLENE GLYCOL 3350 17 GM PKT PO PRN (17:58)
[2016-11-27] MEDS: PATCH REMOVAL 1 EA PATCH TD SCH (19:40)
[2016-11-27] MEDS: ATORVASTATIN CALCIUM 40 MG TAB PO SCH (19:40)
[2016-11-28] MEDS: ACETAMINOPHEN 500 MG TAB PO PRN ×3 (00:28→12:43)
[2016-11-28 08:36] VITALS: RESP 18
[2016-11-28] MEDS: PANTOPRAZOLE SODIUM 40 MG TAB PO SCH (08:57)
[2016-11-28] MEDS: LIDOCAINE 5% 1 EA PATCH TD SCH (08:57)
[2016-11-28] MEDS: CHOLECALCIFEROL VIT D3 1,000 UNITS TAB PO SCH (09:53)
[2016-11-28] MEDS: amLODIPine BESYLATE 5 MG TAB PO SCH (09:53)
[2016-11-28] MEDS: ENOXAPARIN 40 MG/0.4 ML SYR SC SCH (09:53)
[2016-11-28] MEDS: POTASSIUM CL 10 MEQ TAB PO SCH (09:53)
[2016-11-28] MEDS: SENNOSIDES/DOCUSATE SODIUM TAB PO SCH (10:08)
--- NOTE | 2016-11-28 15:19 | HOSPPROG ---
Hospitalist Progress Note Assessment/Plan: 76 yo F with PMH of lumbar stenosis, NHL in remission admitted s/p fall with multiple rib fractures and small ptx. This is my first encounter with the pt. Chart reviewed. D/W RN. # acute left sided rib fractures: 6 acute left sided rib fxs noted. She had associated ptx/hydrothorax post chest tube. # ptx: with chest tube now removed, on personal review of repeat cxr small reaccumulation of tiny left sided ptx noted. Repeat CXR personally reviewed improved and stable. # constipation: resolved # hyponatremia: relatively mild and chronic, essentially at baseline, holding hctz # htn: as above holding hctz, bp has been reasonably well controlled for her age on amlodipine alone # hx of cervical decompression and lami: continues to wear soft c collar intermittently, f/u with Bhavin # chronic medical issues: lumbar stenosis, htn, hld--continue op mgmt # dispo:likely DC per trauma service medically able to DC Subjective: Up in the chair. Concerned about needing a chest xray. No specific complaints. Objective: Vital Signs Temp Pulse Resp BP Pulse Ox 36.6 C 66 18 117/55 L 95 11/28/16 08:00 11/28/16 08:00 11/28/16 08:00 11/28/16 09:53 11/28/16 08:00 Laboratory Results 11/26/16 04:54 11/27/16 11/28/16 11/29/16 05:59 05:59 05:59 Intake Total 850 1250 Balance 850 1250 PT 12.8 SEC (12.0-15.0) 11/24/16 11:50 INR 0.97 (0.83-1.16) 11/24/16 11:50 - Physical Exam Constitutional: no apparent distress, appears nourished, chronically ill appearing Eyes: PERRL, anicteric sclera, EOMI Ears, Nose, Mouth, Throat: moist mucous membranes, hearing normal, ears appear normal Cardiovascular: No JVD, No tachycardia, No edema Respiratory: no respiratory distress, no rales or rhonchi, reduced air movement Gastrointestinal: No tenderness, No ascites, No guarding Skin: warm, normal color, No erythema Musculoskeletal: pain with ROM, muscular tenderness, generalized weakness Neurologic: AAOx3 Psychiatric: interacting appropriately, not anxious, not encephalopathic ICD10 Worksheet Patient Problems: Problems Problem Status Onset Hyponatremia Acute Dehydration Acute Lower abdominal pain Acute Lumbar radiculopathy Acute Back pain Acute Spinal stenosis of cervical region Acute Cervical spine degeneration Acute Arthrodesis status Acute Multiple fractures of ribs Acute Pneumothorax Acute Hyponatremia Acute Fall at home Acute
[2016-11-28 15:47] VITALS: BP 127/72; PULSE 87; TEMP 98.5; O2SAT 98
--- NOTE | 2016-11-28 16:35 | SOAPPROG ---
SOAP Progress Note Assessment/Plan: Assessment: 76-YEAR-OLD FEMALE WITH MULTIPLE RIB FRACTURES DOING WELL / BREATH SOUNDS EQUAL / CHEST X-RAY WELL EXPANDED WITH MINIMAL EFFUSION Plan: HOME / FOLLOW-UP NEXT WEEK IN THE OFFICE WITH CHEST X-RAY 11/28/16 16:32 Objective: Vital Signs Temp Pulse Resp BP Pulse Ox 36.9 C 87 18 127/72 H 98 11/28/16 15:47 11/28/16 15:47 11/28/16 15:47 11/28/16 15:47 11/28/16 15:47 Laboratory Results 11/26/16 04:54 11/27/16 11/28/16 11/29/16 05:59 05:59 05:59 Intake Total 850 1250 Balance 850 1250 PT 12.8 SEC (12.0-15.0) 11/24/16 11:50 INR 0.97 (0.83-1.16) 11/24/16 11:50 ICD10 Worksheet Patient Problems: Problems Problem Status Onset Fall at home Acute Hyponatremia Acute Multiple fractures of ribs Acute Pneumothorax Acute Arthrodesis status Acute Back pain Acute Cervical spine degeneration Acute Dehydration Acute Hyponatremia Acute Lower abdominal pain Acute Lumbar radiculopathy Acute Spinal stenosis of cervical region Acute
== END 2016-11-28 17:06 | disposition home or self-care (01) | DRG 184 ==
LOC: INTOOBSV 14:36 → F3N 17:09 → OBSVTOIN 11-25 10:57
PROVIDERS: ADMIT Surgery; ATTEND Surgery
PROC: 0W9B30Z Drainage of Left Pleural Cavity with Drainage Device, Percutaneous Approach (ICD-10-PCS; principal; 2016-11-24)
DX: S22.42XA Multiple fractures of ribs, left side, initial encounter for closed fracture (principal); S27.0XXA Traumatic pneumothorax, initial encounter; E87.1 Hypo-osmolality and hyponatremia; C88.0 Waldenstrom macroglobulinemia; I10 Essential (primary) hypertension; E78.5 Hyperlipidemia, unspecified; K59.00 Constipation, unspecified; W01.0XXA Fall on same level from slipping, tripping and stumbling without subsequent striking against object, initial encounter; Y92.012 Bathroom of single-family (private) house as the place of occurrence of the external cause
CPT/HCPCS: 96374; 97116-GP; 97162-GP; 97166-GO; 97530-GO; 97530-GP; 97535-GO; G0378; G8978-GP-CJ; G8979-GP-CI; G8980-GP-CI; G8987-GO-CJ; G8988-GO-CI; J1170; J1650; J2405; Q9967

== ENCOUNTER 2016-11-30 19:26 | Emergency (ER) | payer OTHER, MEDICARE ==
[2016-11-30 19:32] VITALS: RESP 20; TEMP 97.7
[2016-11-30] MEDS ORDERED: NS 1,000 ML IV ONE ×2 (19:58→21:41)
--- NOTE | 2016-11-30 20:05 | EDPHY ---
H & P Stated Complaint: cramps in lower abd x1 hour Time Seen by Provider: 11/30/16 19:49 HPI/ROS: CHIEF COMPLAINT: Abdominal pain and diarrhea HISTORY OF PRESENT ILLNESS: Patient is a 76-year-old female who comes to the emergency department complaining of abdominal pain and diarrhea. She states that she has had diarrhea for the last 2 days. Today she has not had diarrhea but she is having abdominal pain and bloating. She has been able to pass gas. She has not had a fever. She has not had any vomiting or nausea. She was admitted to the hospital last week after a fall. She had several broken ribs and a small pneumothorax. She was observed and discharged 2 days ago. She states that she has not been taking narcotics only Tylenol. She does have a history of hysterectomy no other abdominal surgeries. She also has a history of non-Hodgkin's lymphoma. REVIEW OF SYSTEMS: Constitutional: denies: chills, fever, recent illness, recent injury EENTM: denies: blurred vision, double vision, nose congestion Respiratory: denies: cough, shortness of breath Cardiac: denies: chest pain, irregular heart rate, lightheadedness, palpitations Gastrointestinal/Abdominal: See HPI Genitourinary: denies: dysuria, frequency, hematuria, pain Musculoskeletal: denies: joint pain, muscle pain Skin: denies: lesions, rash, jaundice, bruising Neurological: denies: headache, numbness, paresthesia, tingling, dizziness, weakness Hematologic/Lymphatic: denies: blood clots, easy bleeding, easy bruising Immunologic/allergic: denies: HIV/AIDS, transplant EXAM: GENERAL: Well-appearing, well-nourished and in no acute distress. HEAD: Atraumatic, normocephalic. EYES: Pupils equal round and reactive to light, extraocular movements intact, sclera anicteric, conjunctiva are normal. ENT: TMs normal, nares patent, oropharynx clear without exudates. Moist mucous membranes. NECK: Normal range of motion, supple without lymphadenopathy or JVD. LUNGS: Breath sounds clear to auscultation bilaterally and equal. No wheezes rales or rhonchi. HEART: Regular rate and rhythm without murmurs, rubs or gallops. ABDOMEN: Nontender, distended, tympanic BACK: No CVA tenderness, no spinal tenderness, step-offs or deformities EXTREMITIES: Normal range of motion, no pitting or edema. No clubbing or cyanosis. NEUROLOGICAL: Cranial nerves II through XII grossly intact. Normal speech, normal gait. 5/5 strength, normal movement in all extremities, normal sensation PSYCH: Normal mood, normal affect. SKIN: Warm, dry, normal turgor, no visible rashes or lesions. Source: Patient Exam Limitations: No limitations - Personal History Current Tetanus/Diphtheria Vaccine: Yes Current Tetanus Diphtheria and Acellular Pertussis (TDAP): Yes Tetanus Vaccine Date: 07-15-12 - Medical/Surgical History Hx Asthma: No Hx Chronic Respiratory Disease: No Hx Diabetes: No Hx Cardiac Disease: No Hx Renal Disease: No Hx Cirrhosis: No Hx Alcoholism: No Hx HIV/AIDS: No Hx Splenectomy or Spleen Trauma: No Other PMH: 03/2016 Left rib fracture, HTN, Non-Hodkins Lyphoma for 8 years, hysterectomy, bilateral hip replacements. anxiety/NECK SURGERY - Family History Significant Family History: No pertinent family hx - Social History Smoking Status: Never smoked Alcohol Use: Sober Drug Use: None Constitutional: Initial Vital Signs Temperature (C) 36.5 C 11/30/16 19:29 Heart Rate 102 H 11/30/16 19:29 Respiratory Rate 20 11/30/16 19:29 Blood Pressure 128/68 H 11/30/16 19:29 O2 Sat (%) 94 11/30/16 19:29 O2 Delivery Mode Room Air Allergies/Adverse Reactions: MARCIANO Inhibitors Allergy (Mild, Verified 11/30/16 19:32) COUGH Sulfa (Sulfonamide Antibiotics) Allergy (Mild, Verified 11/30/16 19:32) Rash nitrofurantoin macrocrystalline [From Macrodantin] Allergy (Unknown, Verified 19:32) phenazopyridine HCl [From Pyridium] Allergy (Unknown, Verified 11/30/16 19:32) opiates Allergy (Intermediate, Uncoded 08/17/16 19:53) Constipation DOGS/CATS Allergy (Mild, Uncoded 08/17/16 19:53) ITCHY EYES/SCRATCHY THROAT/RUNNY NOSE ENVIRONMENTAL Allergy (Mild, Uncoded 08/17/16 19:53) ITCHY EYES/SCRATCHY THROAT/RUNNY NOSE SEASONAL Allergy (Mild, Uncoded 08/17/16 19:53) ITCHY EYES/RUNNY NOSE/SCRATCHY THROAT Home Medications: Medication Instructions Recorded Atorvastatin Calcium [Lipitor 40 40 mg PO HS 07/01/16 mg (*)] Cholecalciferol Vit D3 [Vitamin D3 2,000 units PO DAILY 07/01/16 (*)] Omeprazole 20 mg PO DAILY 07/01/16 amLODIPine BESYLATE [Norvasc 5 mg 5 mg PO DAILY 07/01/16 (*)] Hydrochlorothiazide [HCTZ (*)] 25 mg PO DAILY #30 tab 07/02/16 Diazepam [Valium 5 MG (*)] 5 mg PO DAILY PRN #14 tab 09/15/16 Acetaminophen [Tylenol ES 500 mg 500 - 1,000 mg PO TID PRN 11/24/16 (*)] Aspirin EC [Aspirin EC 81 mg (*)] 81 mg PO DAILY 11/24/16 Cetirizine [ZyrTEC 10 mg (*)] 10 mg PO DAILY PRN 11/24/16 Docusate Sodium [Colace 100 MG (*)] 100 mg PO BID PRN 11/24/16 Ibuprofen [Motrin (*)] 200 - 400 mg PO DAILY PRN 11/24/16 Melatonin 3 MG (*) 3 mg PO HS 11/24/16 Potassium Cl [Klor-Con] 10 meq PO DAILY 11/24/16 Sennosides/Docusate Sodium 1 - 2 tab PO BID PRN 11/24/16 [Senokot-S] Medical Decision Making - Diagnostics Imaging Results: Results: CT scan of the abdomen and pelvis was obtained. The results of the study are negative for obstruction or acute abnormality. The study was read by Dr. Dey. I viewed the images myself on the PACS system. ED Course/Re-evaluation: 9:40 p.m. the patient's lab work is reassuring. Her CT is also reassuring. She is clinically dehydrated. I will treat her with a 2nd L of fluids. She has not had any diarrhea since arriving. After IV fluids she would like to go home. 10:30 p.m. the patient is feeling much better. She is no longer clinically dehydrated. She wishes to go home and will take a taxi. She has not had any episodes of diarrhea since arriving. She is tolerating p.o. follow-up as well as indications for returning. Differential Diagnosis: Partial list of the Differential diagnosis considered include but were not limited to; diarrhea, gas, obstruction and although unlikely based on the history and physical exam, I also considered volvulus, diverticulitis, constipation, perforation, ischemia. I discussed these differential diagnoses and the plan with the patient as well as the usual and expected course. The patient understands that the diagnosis is provisional and that in medicine we are not always correct and that further workup is often warranted. Usual and customary warnings were given. All of the patient's questions were answered. The patient was instructed to return to the emergency department should the symptoms at all worsen or return, otherwise to followup with the physician as we discussed. - Data Points Laboratory Results: Laboratory Results 11/30/16 20:25 11/30/16 20:25 Medications Given: Discontinued Medications Sodium Chloride (Ns) 1,000 mls @ 0 mls/hr IV ONCE ONE PRN Reason: Wide Open Stop: 11/30/16 19:59 Last Admin: 11/30/16 20:31 Dose: 1,000 mls Sodium Chloride (Ns) 1,000 mls @ 0 mls/hr IV ONCE ONE PRN Reason: Wide Open Stop: 11/30/16 21:42 Last Admin: 11/30/16 21:50 Dose: 1,000 mls Departure - Departure Disposition: Home, Routine, Self-Care Clinical Impression: Diarrhea Qualifiers: Diarrhea type: unspecified type Qualified Code(s): R19.7 - Diarrhea, unspecified Condition: Fair Instructions: Acute Diarrhea (ED) Referrals: Darien Holliday MD [Primary Care Provider] - As per Instructions
[2016-11-30 20:37] LABS: % IMMATURE GRANULYOCYTES 0.3 % (0.0-1.1); ABSOLUTE IMMATURE GRANULOCYTES 0.02 10^3/uL (0.00-0.10); ADD DIFF? NO; ADD MORPH? NO; ADD SCAN? NO; ATYPICAL LYMPHOCYTE FLAG 0 (0-99); FRAGMENT RBC FLAG 0 (0-99); HEMOGLOBIN 12.7 g/dL (12.6-16.3); LEFT SHIFT FLG 0 (0-99); LIPEMIA HEMOLYSIS FLAG 90 (0-99); MEAN CELL HEMOGLOBIN 32.2 pg (27.9-34.1); MEAN CELL HEMOGLOBIN CONCENTR. 34.3 g/dL (32.4-36.7); MEAN CELL VOLUME 93.7 fL (81.5-99.8); MEAN PLATELET VOLUME 10.2 fL (8.7-11.7); PLATELET CLUMPS FLAG 10 (0-99); PLATELET COUNT 293 10^3/uL (150-400); RED BLOOD CELL COUNT 3.95 10^6/uL (4.18-5.33); RED CELL DISTRIBUTION WIDTH 14.5 % (11.5-15.2)
[2016-11-30 20:49] LABS: ALANINE AMINOTRANSFERASE 33 IU/L (9-52); ALKALINE PHOSPHATASE 96 IU/L (38-126); ANION GAP 11 mEq/L (8-16); ASPARTATE AMINOTRANSFERASE 33 IU/L (14-46); BILIRUBIN,TOTAL 0.4 mg/dL (0.1-1.4); BILIRUBIN-CONJUGATED 0.4 mg/dL (0.0-0.5); CALCIUM 9.3 mg/dL (8.5-10.4); CARBON DIOXIDE 22 mEq/l (22-31); CHLORIDE 98 mEq/L (97-110); CREATININE 0.7 mg/dL (0.6-1.0); GLOMERULAR FILTRATION RATE > 60; GLUCOSE 89 mg/dL (70-100); POTASSIUM 3.8 mEq/L (3.5-5.2); SODIUM 131 mEq/L (134-144); TOTAL PROTEIN 6.2 g/dL (6.3-8.2)
[2016-11-30] MEDS ORDERED: IOPAMIDOL (ISOVUE-300) 100 ML BTL IV ONE (20:50)
[2016-11-30 22:02] LABS: COLOR PALE YELLOW; LEUKOCYTE ESTERASE,URINE NEGATIVE (NEGATIVE); NITRITE,URINE NEGATIVE (NEGATIVE)
[2016-11-30 22:47] VITALS: BP 121/67; PULSE 96; O2SAT 95
== END 2016-11-30 22:48 | disposition home or self-care (01) ==
DX: R19.7 Diarrhea, unspecified (principal); I10 Essential (primary) hypertension; Z79.82 Long term (current) use of aspirin
CPT/HCPCS: 74177; 96360; 96361; 99285; Q9967

== ENCOUNTER → 2016-12-09 | Outpatient (CLI) | payer OTHER, MEDICARE | LOC: FIMAGING 09:35 → EDSTATUS 09:36 | PROVIDERS: ATTEND Surgery | DX: J93.9 Pneumothorax, unspecified (principal); S22.42XA Multiple fractures of ribs, left side, initial encounter for closed fracture ==

== ENCOUNTER → 2016-12-23 | Outpatient (CLI) | payer OTHER, MEDICARE | LOC: BMCIMAGING 09:31 | PROVIDERS: ATTEND Nurse Practitioner | DX: Z09 Encounter for follow-up examination after completed treatment for conditions other than malignant neoplasm (principal); Z98.1 Arthrodesis status ==

== ENCOUNTER 2017-01-04 18:58 | Emergency (ER) | payer OTHER, MEDICARE ==
--- NOTE | 2017-01-04 19:37 | EDPHY ---
H & P Smoking Status: Never smoked Time Seen by Provider: 01/04/17 19:14 HPI/ROS: CHIEF COMPLAINT: Abdominal pain HISTORY OF PRESENT ILLNESS: 76-year-old female presents to the emergency department by private vehicle complaining of lower abdominal pain that began approximately 1 hour prior to arrival. The patient is concerned that she has a "blockage". She feels that she has had this pain in the past. She has had a previous obstruction in the past. She denies any reported trauma. She initially developed pain and thought that she had have a bowel movement. She tried a suppository without relief. She had a small bowel movement earlier today. No vomiting. No fevers or chills. No chest pain or difficulty breathing. REVIEW OF SYSTEMS: Constitutional: No fever, no chills. Eyes: No double or blurry vision. ENT: No sore throat. Respiratory: No cough, no shortness of breath. Cardiac: No chest pain. Gastrointestinal: Abdominal pain as above. No vomiting or diarrhea. Genitourinary: No dysuria. Musculoskeletal: No neck or back pain. Skin: No rashes. Neurological: No headache. (Elisa Batista) Past Medical/Surgical History: Hypertension, non-Hodgkin's lymphoma, hysterectomy, bilateral hip replacements, anxiety, cervical fusion (Elisa Batista) Social History: and lives in [place] (Elisa Batista) Physical Exam: General Appearance: Alert, no distress. 104/63, heart rate 86, 93% on room air. Eyes: Pupils equal and round. Extraocular motions are all intact. ENT: Mouth: Mucous membranes moist. Respiratory: No wheezing, rhonchi, or rales, lungs are clear to auscultation. Cardiovascular: Regular rate and rhythm. Gastrointestinal: She has tenderness with palpation especially in the suprapubic area. There is firmness with palpation in the suprapubic area. There is no rebound, guarding noted. No CVA tenderness bilaterally. Neurological: Alert and oriented x 3, cranial nerves II through XII grossly intact Skin: Warm and dry, no rashes. Musculoskeletal: Nontender to palpate along the cervical, thoracic or lumbar spine. Neck is supple. Extremities: Full range of motion and no peripheral edema. Psychiatric: Patient is oriented X 3, there is no agitation. (Elisa Batista M) Constitutional: Initial Vital Signs Temperature (C) 36.8 C 01/04/17 19:03 Heart Rate 86 01/04/17 19:03 Respiratory Rate 16 01/04/17 19:03 Blood Pressure 104/63 01/04/17 19:03 O2 Sat (%) 93 01/04/17 19:03 O2 Delivery Mode Room Air Allergies/Adverse Reactions: MARCIANO Inhibitors Allergy (Mild, Verified 01/04/17 19:07) COUGH Sulfa (Sulfonamide Antibiotics) Allergy (Mild, Verified 01/04/17 19:07) Rash nitrofurantoin macrocrystalline [From Macrodantin] Allergy (Unknown, Verified 19:07) phenazopyridine HCl [From Pyridium] Allergy (Unknown, Verified 01/04/17 19:07) opiates Allergy (Intermediate, Uncoded 08/17/16 19:53) Constipation DOGS/CATS Allergy (Mild, Uncoded 08/17/16 19:53) ITCHY EYES/SCRATCHY THROAT/RUNNY NOSE ENVIRONMENTAL Allergy (Mild, Uncoded 08/17/16 19:53) ITCHY EYES/SCRATCHY THROAT/RUNNY NOSE SEASONAL Allergy (Mild, Uncoded 08/17/16 19:53) ITCHY EYES/RUNNY NOSE/SCRATCHY THROAT Home Medications: Medication Instructions Recorded Atorvastatin Calcium [Lipitor 40 40 mg PO HS 07/01/16 mg (*)] Cholecalciferol Vit D3 [Vitamin D3 2,000 units PO DAILY 07/01/16 (*)] Omeprazole 20 mg PO DAILY 07/01/16 amLODIPine BESYLATE [Norvasc 5 mg 5 mg PO DAILY 07/01/16 (*)] Hydrochlorothiazide [HCTZ (*)] 25 mg PO DAILY #30 tab 07/02/16 Diazepam [Valium 5 MG (*)] 5 mg PO DAILY PRN #14 tab 09/15/16 Acetaminophen [Tylenol ES 500 mg 500 - 1,000 mg PO TID PRN 11/24/16 (*)] Aspirin EC [Aspirin EC 81 mg (*)] 81 mg PO DAILY 11/24/16 Cetirizine [ZyrTEC 10 mg (*)] 10 mg PO DAILY PRN 11/24/16 Docusate Sodium [Colace 100 MG (*)] 100 mg PO BID PRN 11/24/16 Ibuprofen [Motrin (*)] 200 - 400 mg PO DAILY PRN 11/24/16 Melatonin 3 MG (*) 3 mg PO HS 11/24/16 Potassium Cl [Klor-Con] 10 meq PO DAILY 11/24/16 Sennosides/Docusate Sodium 1 - 2 tab PO BID PRN 11/24/16 [Senokot-S] Medical Decision Making - Diagnostics Imaging: Discussed imaging studies w/ call center recruiter Radiologist ED Course/Re-evaluation: 76-year-old female presents to the emergency department with abdominal pain. She is concerned about possible obstruction. Patient has normal renal function. I recommended CT imaging of the abdomen and pelvis to further evaluate this pain. CT imaging reveals no evidence of obstruction. She has moderate constipation noted. The patient has taken milk of magnesia in the past and does not want to take magnesium citrate. She would like to take her MiraLax and her stool softener. Patient does not have an acute abdomen. She is comfortable being discharged home. (Elisa Batista) Differential Diagnosis: Including but not limited to bowel obstruction, constipation, acute appendicitis , diverticulitis, GERD (lEisa Batista) Other Provider: The patient was evaluated and managed by the physician assistant professor of spanish. I have reviewed this chart and I agree with the findings and plan of care as documented , as indicated by my signature. I am the secondary supervising physician. ( Shila Gruber) - Data Points Laboratory Results: Laboratory Results 01/04/17 19:25 01/04/17 19:25 Departure - Departure Disposition: Home, Routine, Self-Care Clinical Impression: Abdominal pain Qualifiers: Abdominal location: generalized Qualified Code(s): R10.84 - Generalized abdominal pain Condition: Good Instructions: Abdominal Pain (ED) Additional Instructions: Abdominal Pain: Return to the Emergency Department immediately for increasing pain, fever, vomiting, or if not completely better in 8-12 hours. Drink plenty of fluids. You may use her [id number] MiraLax as needed to help relieve constipation. Referrals: Darien Holliday MD [Primary Care Provider] - 1 day, if not improved
[2017-01-04 19:59] LABS: % IMMATURE GRANULYOCYTES 0.2 % (0.0-1.1); ABSOLUTE IMMATURE GRANULOCYTES 0.01 10^3/uL (0.00-0.10); ADD DIFF? NO; ADD MORPH? NO; ADD SCAN? NO; ATYPICAL LYMPHOCYTE FLAG 0 (0-99); FRAGMENT RBC FLAG 0 (0-99); HEMATOCRIT 37.5 % (38.0-47.0); HEMOGLOBIN 13.2 g/dL (12.6-16.3); LEFT SHIFT FLG 0 (0-99); LIPEMIA HEMOLYSIS FLAG 90 (0-99); MEAN CELL HEMOGLOBIN 32.4 pg (27.9-34.1); MEAN CELL HEMOGLOBIN CONCENTR. 35.2 g/dL (32.4-36.7); MEAN CELL VOLUME 91.9 fL (81.5-99.8); MEAN PLATELET VOLUME 10.9 fL (8.7-11.7); PLATELET CLUMPS FLAG 0 (0-99); PLATELET COUNT 242 10^3/uL (150-400); RED BLOOD CELL COUNT 4.08 10^6/uL (4.18-5.33); RED CELL DISTRIBUTION WIDTH 14.4 % (11.5-15.2)
[2017-01-04] MEDS ORDERED: IOPAMIDOL (ISOVUE-300) 100 ML BTL ONE (20:04)
[2017-01-04 20:05] LABS: ANION GAP 10 mEq/L (8-16); CALCIUM 9.7 mg/dL (8.5-10.4); CARBON DIOXIDE 23 mEq/l (22-31); CHLORIDE 95 mEq/L (97-110); CREATININE 0.6 mg/dL (0.6-1.0); GLOMERULAR FILTRATION RATE > 60; GLUCOSE 98 mg/dL (70-100); POTASSIUM 4.1 mEq/L (3.5-5.2); SODIUM 128 mEq/L (134-144)
[2017-01-04 21:09] VITALS: RESP 18; O2SAT 94
[2017-01-04 22:23] VITALS: BP 119/62; PULSE 80; TEMP 98.6
== END 2017-01-04 22:23 | disposition home or self-care (01) ==
DX: R10.84 Generalized abdominal pain (principal); I10 Essential (primary) hypertension; Z79.82 Long term (current) use of aspirin; Z85.72 Personal history of non-Hodgkin lymphomas; Z90.710 Acquired absence of both cervix and uterus
CPT/HCPCS: 74177; 99285; Q9967; 82947-QW

== ENCOUNTER → 2017-01-06 | Outpatient (CLI) | payer OTHER, MEDICARE | LOC: BMCIMAGING 09:36 | PROVIDERS: ATTEND Nurse Practitioner Adult Health | DX: S22.42XK Multiple fractures of ribs, left side, subsequent encounter for fracture with nonunion (principal) | CPT/HCPCS: 71101-PO ==

== ENCOUNTER 2017-01-19 06:46 | Emergency (ER) | payer OTHER, MEDICARE ==
[2017-01-19 06:54] VITALS: TEMP 97.5
[2017-01-19] MEDS ORDERED: NS 1,000 ML IV ONE (07:05)
--- NOTE | 2017-01-19 07:05 | EDPHY ---
H & P Stated Complaint: suprapubic pain since last night; denies nausea, diarrhea/ constipation Time Seen by Provider: 01/19/17 06:59 HPI/ROS: CHIEF COMPLAINT: Abdominal pain HISTORY OF PRESENT ILLNESS: The patient presents to the ED with a complaint of acute suprapubic pain. The patient reports her symptoms have been worsening over the past day. The patient has had a complicated past medical history. She did sustain a fall resulting in multiple rib fractures in November. She was subsequently discharged from the hospital. She has been seen in the emergency department twice since that discharge with complaints of abdominal pain. She has had a total of 2 CT scans of the abdomen and pelvis in that time. The patient was diagnosed with constipation be a CT scan during her last visit on the 04 of January. The patient has continued to intermittently use narcotics for management of various chronic painful conditions. The patient denies dysuria. The patient denies additional acute complaints. REVIEW OF SYSTEMS: A comprehensive 10 point review of systems is otherwise negative aside from elements mentioned in the history of present illness. Source: Patient - Personal History Current Tetanus/Diphtheria Vaccine: Yes Current Tetanus Diphtheria and Acellular Pertussis (TDAP): Yes Tetanus Vaccine Date: 07-15-12 - Medical/Surgical History Hx Asthma: No Hx Chronic Respiratory Disease: No Hx Diabetes: No Hx Cardiac Disease: No Hx Renal Disease: No Hx Cirrhosis: No Hx Alcoholism: No Hx HIV/AIDS: No Hx Splenectomy or Spleen Trauma: No Other PMH: 03/2016 Left rib fracture, HTN, Non-Hodkins Lyphoma for 8 years, hysterectomy, bilateral hip replacements. anxiety/NECK SURGERY - Social History Smoking Status: Never smoked - Physical Exam Exam: General Appearance: Elderly female, no acute distress Eyes: Pupils equal and round no pallor or injection ENT, Mouth: Mucous membranes moist Respiratory: There are no retractions, lungs are clear to auscultation Cardiovascular: Regular rate and rhythm Gastrointestinal: Benign abdominal exam Neurological: A&O, normal motor function, normal sensory exam, normal cranial nerves Skin: Warm and dry, no rashes Musculoskeletal: Neck is supple nontender Extremities: symmetrical, full range of motion Constitutional: Initial Vital Signs Temperature (C) 36.4 C 01/19/17 06:48 Heart Rate 93 01/19/17 06:48 Respiratory Rate 18 01/19/17 06:48 Blood Pressure 135/80 H 01/19/17 06:48 O2 Sat (%) 97 01/19/17 06:48 O2 Delivery Mode Room Air Allergies/Adverse Reactions: MARCIANO Inhibitors Allergy (Mild, Verified 01/04/17 19:07) COUGH Sulfa (Sulfonamide Antibiotics) Allergy (Mild, Verified 01/04/17 19:07) Rash nitrofurantoin macrocrystalline [From Macrodantin] Allergy (Unknown, Verified 19:07) phenazopyridine HCl [From Pyridium] Allergy (Unknown, Verified 01/04/17 19:07) opiates Allergy (Intermediate, Uncoded 08/17/16 19:53) Constipation DOGS/CATS Allergy (Mild, Uncoded 08/17/16 19:53) ITCHY EYES/SCRATCHY THROAT/RUNNY NOSE ENVIRONMENTAL Allergy (Mild, Uncoded 08/17/16 19:53) ITCHY EYES/SCRATCHY THROAT/RUNNY NOSE SEASONAL Allergy (Mild, Uncoded 08/17/16 19:53) ITCHY EYES/RUNNY NOSE/SCRATCHY THROAT Home Medications: Medication Instructions Recorded Atorvastatin Calcium [Lipitor 40 40 mg PO HS 07/01/16 mg (*)] Cholecalciferol Vit D3 [Vitamin D3 2,000 units PO DAILY 07/01/16 (*)] Omeprazole 20 mg PO DAILY 07/01/16 amLODIPine BESYLATE [Norvasc 5 mg 5 mg PO DAILY 07/01/16 (*)] Hydrochlorothiazide [HCTZ (*)] 25 mg PO DAILY #30 tab 07/02/16 Diazepam [Valium 5 MG (*)] 5 mg PO DAILY PRN #14 tab 09/15/16 Acetaminophen [Tylenol ES 500 mg 500 - 1,000 mg PO TID PRN 11/24/16 (*)] Aspirin EC [Aspirin EC 81 mg (*)] 81 mg PO DAILY 11/24/16 Cetirizine [ZyrTEC 10 mg (*)] 10 mg PO DAILY PRN 11/24/16 Docusate Sodium [Colace 100 MG (*)] 100 mg PO BID PRN 11/24/16 Ibuprofen [Motrin (*)] 200 - 400 mg PO DAILY PRN 11/24/16 Melatonin 3 MG (*) 3 mg PO HS 11/24/16 Potassium Cl [Klor-Con] 10 meq PO DAILY 11/24/16 Sennosides/Docusate Sodium 1 - 2 tab PO BID PRN 11/24/16 [Senokot-S] Cephalexin [Keflex] 500 mg PO TID #15 cap 01/19/17 Medical Decision Making - Diagnostics Imaging Results: Imaging Impressions Abdomen X-Ray 01/19/17 07:28 Impression: Abdomen negative for acute localizing features. ED Course/Re-evaluation: I reviewed the results of the patient's past medical records including her CT scan results over the past 2 months. The patient's abdominal examination is benign. The patient's laboratory studies demonstrate chronic hyponatremia. The patient's urinalysis does show evidence of a urinary tract infection. Patient had a IV established. She received a L of normal saline. She received 1 g of IV ceftriaxone. The patient will be treated for a urinary tract infection with Keflex. She is encouraged to use Tylenol for pain relief. The patient is advised to follow up with her primary physician as scheduled. Differential Diagnosis: Differential diagnosis considered includes urinary tract infection, constipation , perforation, obstruction - Data Points Laboratory Results: Laboratory Results 01/19/17 07:15 01/19/17 07:15 01/19/17 01/19/17 01/19/17 07:15 07:15 07:00 WBC 6.76 10^3/uL 10^3/uL (3.80-9.50) RBC 4.28 10^6/uL 10^6/uL (4.18-5.33) Hgb 13.8 g/dL g/dL (12.6-16.3) Hct 39.0 % % (38.0-47.0) MCV 91.1 fL fL (81.5-99.8) MCH 32.2 pg pg (27.9-34.1) MCHC 35.4 g/dL g/dL (32.4-36.7) RDW 14.0 % % (11.5-15.2) Plt Count 334 10^3/uL 10^3/uL (150-400) MPV 10.4 fL fL (8.7-11.7) Neut % (Auto) 49.8 % % (39.3-74.2) Lymph % (Auto) 39.8 % % (15.0-45.0) Craig % (Auto) 8.4 % % (4.5-13.0) Eos % (Auto) 1.3 % % (0.6-7.6) Baso % (Auto) 0.6 % % (0.3-1.7) Nucleat RBC Rel Count 0.0 % % (0.0-0.2) Absolute Neuts (auto) 3.36 10^3/uL 10^3/uL (1.70-6.50) Absolute Lymphs (auto) 2.69 10^3/uL 10^3/uL (1.00-3.00) Absolute Monos (auto) 0.57 10^3/uL 10^3/uL (0.30-0.80) Absolute Eos (auto) 0.09 10^3/uL 10^3/uL (0.03-0.40) Absolute Basos (auto) 0.04 10^3/uL 10^3/uL (0.02-0.10) Absolute Nucleated RBC 0.00 10^3/uL 10^3/uL (0-0.01) Immature Gran % 0.1 % % (0.0-1.1) Immature Gran # 0.01 10^3/uL 10^3/uL (0.00-0.10) Sodium 127 mEq/L L mEq/L (134-144) Potassium 4.3 mEq/L mEq/L (3.5-5.2) Chloride 93 mEq/L L mEq/L (97-110) Carbon Dioxide 24 mEq/l mEq/l (22-31) Anion Gap 10 mEq/L mEq/L (8-16) BUN 14 mg/dL mg/dL (7-23) Creatinine 0.5 mg/dL L mg/dL (0.6-1.0) Estimated GFR > 60 Glucose 123 mg/dL H mg/dL (70-100) Calcium 10.1 mg/dL mg/dL (8.5-10.4) Urine Color YELLOW Urine Appearance CLEAR Urine pH 6.0 (5.0-7.5) Ur Specific [place] 1.010 (1.002-1.030) Urine Protein NEGATIVE (NEGATIVE) Urine Ketones NEGATIVE (NEGATIVE) Urine Blood NEGATIVE (NEGATIVE) Urine Nitrate NEGATIVE (NEGATIVE) Urine Bilirubin NEGATIVE (NEGATIVE) Urine Urobilinogen NEGATIVE EU EU (0.2-1.0) Ur Leukocyte Esterase 3+ H (NEGATIVE) Urine RBC 3-5 /hpf H /hpf (0-3) Urine WBC 25-50 /hpf H /hpf (0-3) Ur Epithelial Cells TRACE /lpf /lpf (NONE-1+) Urine Bacteria TRACE /hpf H /hpf (NONE SEEN) Urine Mucus TRACE /lpf /lpf (NONE-1+) Urine Glucose NEGATIVE (NEGATIVE) Medications Given: Discontinued Medications Sodium Chloride (Ns) 1,000 mls @ 0 mls/hr IV ONCE ONE PRN Reason: Wide Open Stop: 01/19/17 07:06 Last Admin: 01/19/17 07:25 Dose: 1,000 mls Departure - Departure Disposition: Home, Routine, Self-Care Clinical Impression: Urinary tract infection, Suprapubic abdominal pain Condition: Good Instructions: Urinary Tract Infection in Women (ED) Additional Instructions: 1. Take Keflex as directed for next 5 days. 2. Please take Tylenol for pain control 3. Please return to the ED for any vomiting, fever, worsening symptoms or other concerns. 4. Please schedule a follow-up appointment with your regular primary care provider for a recheck in the next week. Referrals: Darien Holliday MD [Primary Care Provider] - As per Instructions
[2017-01-19 07:22] LABS: % IMMATURE GRANULYOCYTES 0.1 % (0.0-1.1); ABSOLUTE IMMATURE GRANULOCYTES 0.01 10^3/uL (0.00-0.10); ADD DIFF? NO; ADD MORPH? NO; ADD SCAN? NO; ATYPICAL LYMPHOCYTE FLAG 0 (0-99); FRAGMENT RBC FLAG 0 (0-99); HEMOGLOBIN 13.8 g/dL (12.6-16.3); LEFT SHIFT FLG 0 (0-99); LIPEMIA HEMOLYSIS FLAG 90 (0-99); MEAN CELL HEMOGLOBIN 32.2 pg (27.9-34.1); MEAN CELL HEMOGLOBIN CONCENTR. 35.4 g/dL (32.4-36.7); MEAN CELL VOLUME 91.1 fL (81.5-99.8); MEAN PLATELET VOLUME 10.4 fL (8.7-11.7); PLATELET CLUMPS FLAG 10 (0-99); PLATELET COUNT 334 10^3/uL (150-400); RED BLOOD CELL COUNT 4.28 10^6/uL (4.18-5.33)
[2017-01-19 07:50] LABS: ANION GAP 10 mEq/L (8-16); CALCIUM 10.1 mg/dL (8.5-10.4); CARBON DIOXIDE 24 mEq/l (22-31); CHLORIDE 93 mEq/L (97-110); CREATININE 0.5 mg/dL (0.6-1.0); GLOMERULAR FILTRATION RATE > 60; GLUCOSE 123 mg/dL (70-100); POTASSIUM 4.3 mEq/L (3.5-5.2); SODIUM 127 mEq/L (134-144)
[2017-01-19 07:53] LABS: COLOR YELLOW; LEUKOCYTE ESTERASE,URINE 3+ (NEGATIVE); NITRITE,URINE NEGATIVE (NEGATIVE)
[2017-01-19 08:01] LABS: BACTERIA TRACE /hpf (NONE SEEN); MUCUS TRACE /lpf (NONE-1+); WBC,URINE 25-50 /hpf (0-3)
[2017-01-19 09:23] VITALS: RESP 16
[2017-01-19 09:38] VITALS: BP 138/68; PULSE 77; O2SAT 97
== END 2017-01-19 09:36 | disposition home or self-care (01) ==
DX: N39.0 Urinary tract infection, site not specified (principal); I10 Essential (primary) hypertension; Z79.82 Long term (current) use of aspirin; Z90.710 Acquired absence of both cervix and uterus
CPT/HCPCS: 74000; J0696; 96365

== ENCOUNTER 2017-01-23 17:51 | Emergency (ER) | payer OTHER, MEDICARE ==
[2017-01-23 18:30] VITALS: O2SAT 99
[2017-01-23] MEDS ORDERED: DIAZEPAM 2 MG TAB PO ONE (18:57)
--- NOTE | 2017-01-23 18:58 | EDPHY ---
H & P Stated Complaint: tripped and fell hit head no loc/vizcarra/l rib pain l shoulder pain Time Seen by Provider: 01/23/17 18:43 HPI/ROS: CHIEF COMPLAINT: Fall HISTORY OF PRESENT ILLNESS: The patient is a 76-year-old female who comes to the emergency department concerned because she fell and hit her head. She did not lose consciousness. She complains of mild head pain. She has a history of cervical spine fusion. She also has a very small abrasion to her back and right elbow. She has no pain in her extremities and is able to ambulate normally with her walker. She denies syncope. She denies weakness. She is very afraid and anxious. She takes Valium for anxiety. REVIEW OF SYSTEMS: Constitutional: denies: chills, fever, recent illness, recent injury EENTM: denies: blurred vision, double vision, nose congestion Respiratory: denies: cough, shortness of breath Cardiac: denies: chest pain, irregular heart rate, lightheadedness, palpitations Gastrointestinal/Abdominal: denies: abdominal pain, diarrhea, nausea, vomiting, blood streaked stools Genitourinary: denies: dysuria, frequency, hematuria, pain Musculoskeletal: denies: joint pain, muscle pain Skin: denies: lesions, rash, jaundice, bruising Neurological: denies: headache, numbness, paresthesia, tingling, dizziness, weakness Hematologic/Lymphatic: denies: blood clots, easy bleeding, easy bruising Immunologic/allergic: denies: HIV/AIDS, transplant EXAM: GENERAL: Well-appearing, well-nourished and in no acute distress. HEAD: Atraumatic, normocephalic. No crepitus EYES: Pupils equal round and reactive to light, extraocular movements intact, sclera anicteric, conjunctiva are normal. ENT: TMs normal, nares patent, oropharynx clear without exudates. Moist mucous membranes. NECK: Normal range of motion, supple without lymphadenopathy or JVD. LUNGS: Breath sounds clear to auscultation bilaterally and equal. No wheezes rales or rhonchi. HEART: Regular rate and rhythm without murmurs, rubs or gallops. ABDOMEN: Soft, nontender, normoactive bowel sounds. No guarding, no rebound. No masses appreciated. BACK: No CVA tenderness, no spinal tenderness, step-offs or deformities EXTREMITIES: Normal range of motion, no pitting or edema. No clubbing or cyanosis. NEUROLOGICAL: Cranial nerves II through XII grossly intact. Normal speech, normal gait. 5/5 strength, normal movement in all extremities, normal sensation PSYCH: Normal mood, normal affect. SKIN: Small abrasion to right elbow and back Source: Patient Exam Limitations: No limitations - Personal History Current Tetanus/Diphtheria Vaccine: Yes Tetanus Vaccine Date: 07-15-12 - Medical/Surgical History Hx Asthma: No Hx Chronic Respiratory Disease: No Hx Diabetes: No Hx Cardiac Disease: No Hx Renal Disease: No Hx Cirrhosis: No Hx Alcoholism: No Hx HIV/AIDS: No Hx Splenectomy or Spleen Trauma: No Other PMH: 03/2016 Left rib fracture, HTN, Non-Hodkins Lyphoma for 8 years, hysterectomy, bilateral hip replacements. anxiety/NECK SURGERY - Family History Significant Family History: No pertinent family hx - Social History Smoking Status: Never smoked Alcohol Use: Sober Drug Use: None Constitutional: Initial Vital Signs Temperature (C) 36.7 C 01/23/17 18:04 Heart Rate 90 01/23/17 18:04 Respiratory Rate 18 01/23/17 18:04 Blood Pressure 149/87 H 01/23/17 18:04 O2 Sat (%) 96 01/23/17 18:04 O2 Delivery Mode Room Air Allergies/Adverse Reactions: MARCIANO Inhibitors Allergy (Mild, Verified 01/23/17 18:03) COUGH Sulfa (Sulfonamide Antibiotics) Allergy (Mild, Verified 01/23/17 18:03) Rash nitrofurantoin macrocrystalline [From Macrodantin] Allergy (Unknown, Verified 18:03) phenazopyridine HCl [From Pyridium] Allergy (Unknown, Verified 01/23/17 18:03) opiates Allergy (Intermediate, Uncoded 08/17/16 19:53) Constipation DOGS/CATS Allergy (Mild, Uncoded 08/17/16 19:53) ITCHY EYES/SCRATCHY THROAT/RUNNY NOSE ENVIRONMENTAL Allergy (Mild, Uncoded 08/17/16 19:53) ITCHY EYES/SCRATCHY THROAT/RUNNY NOSE SEASONAL Allergy (Mild, Uncoded 08/17/16 19:53) ITCHY EYES/RUNNY NOSE/SCRATCHY THROAT Home Medications: Medication Instructions Recorded Atorvastatin Calcium [Lipitor 40 40 mg PO HS 07/01/16 mg (*)] Cholecalciferol Vit D3 [Vitamin D3 2,000 units PO DAILY 07/01/16 (*)] Omeprazole 20 mg PO DAILY 07/01/16 amLODIPine BESYLATE [Norvasc 5 mg 5 mg PO DAILY 07/01/16 (*)] Hydrochlorothiazide [HCTZ (*)] 25 mg PO DAILY #30 tab 07/02/16 Diazepam [Valium 5 MG (*)] 5 mg PO DAILY PRN #14 tab 09/15/16 Acetaminophen [Tylenol ES 500 mg 500 - 1,000 mg PO TID PRN 11/24/16 (*)] Aspirin EC [Aspirin EC 81 mg (*)] 81 mg PO DAILY 11/24/16 Cetirizine [ZyrTEC 10 mg (*)] 10 mg PO DAILY PRN 11/24/16 Docusate Sodium [Colace 100 MG (*)] 100 mg PO BID PRN 11/24/16 Ibuprofen [Motrin (*)] 200 - 400 mg PO DAILY PRN 11/24/16 Melatonin 3 MG (*) 3 mg PO HS 11/24/16 Potassium Cl [Klor-Con] 10 meq PO DAILY 11/24/16 Sennosides/Docusate Sodium 1 - 2 tab PO BID PRN 11/24/16 [Senokot-S] Cephalexin [Keflex] 500 mg PO TID #15 cap 01/19/17 Medical Decision Making - Diagnostics Imaging Results: Imaging Impressions Head CT 01/23/17 18:53 Impression: 1. Limited due to patient motion artifact. Consider repeating if clinically indicated. 2. No definite skull fracture. 3. Cerebrovascular atherosclerosis. 4. Mild atrophy and microvascular ischemic gliosis. 5. No definite epidural or subdural hematoma. 6. No definite intraparenchymal hemorrhage, although anterior peripheral frontal lobe regions are limited. Findings and recommendations discussed with Emergency Department physician, Blaise Pickard at 1926 hour, 01/23/2017. Final report concurs with initial preliminary interpretation. Imaging: Discussed imaging studies w/ mail caller Radiologist ED Course/Re-evaluation: The patient is very anxious and afraid and keeps repeating "I want to be seen". She thinks that a CT scan would help relieve her concerns. I will also give her a small dose of her home Valium. No pain with range of motion of her arms and legs. Head CT ordered in this adult patient for trauma for the following indication: Age greater than 65 and fall greater than 3 feet. 7:25 p.m. we discussed the patient's CT results. There is motion artifact but no obvious injury. The patient has very low risk clinically. She is feeling reassured and declines further workup or testing. She is eager to go home. She has not had the Valium here but will take when she gets home. 7:50 p.m. we got the patient up to walk to the bathroom. She was initially very unsteady. We then spoke with her about further workup and staying in the hospital. She does not wish to do so. She then appeared motivated and was able to walk with her walker to the bathroom. She states that this is her baseline. We did speak with the patient's who confirms that this is her baseline. He states that she is very anxious at baseline. He can help her at home and typically does. She declines further workup or testing. He just wanted her to come to get her head evaluated. Differential Diagnosis: Partial list of the Differential diagnosis considered include but were not limited to; anxiety, abrasion and although unlikely based on the history and physical exam, I also considered head injury, neck injury, syncope. I discussed these differential diagnoses and the plan with the patient as well as the usual and expected course. The patient understands that the diagnosis is provisional and that in medicine we are not always correct and that further workup is often warranted. Usual and customary warnings were given. All of the patient's questions were answered. The patient was instructed to return to the emergency department should the symptoms at all worsen or return, otherwise to followup with the physician as we discussed. - Data Points Medications Given: Discontinued Medications Diazepam (Valium) 2 mg PO EDNOW ONE Stop: 01/23/17 18:58 Last Admin: 01/23/17 19:59 Dose: Not Given Departure - Departure Disposition: Home, Routine, Self-Care Clinical Impression: Anxiety, Abrasion Condition: Fair Instructions: Abrasion (ED), Anxiety (ED) Referrals: Darien Hloliday MD [Primary Care Provider] - As per Instructions
[2017-01-23 19:59] VITALS: BP 140/79; PULSE 80; RESP 16; TEMP 97.5
== END 2017-01-23 20:17 | disposition home or self-care (01) ==
DX: S50.311A Abrasion of right elbow, initial encounter (principal); S20.419A Abrasion of unspecified back wall of thorax, initial encounter; F41.9 Anxiety disorder, unspecified; I10 Essential (primary) hypertension; Z79.82 Long term (current) use of aspirin; W01.10XA Fall on same level from slipping, tripping and stumbling with subsequent striking against unspecified object, initial encounter

== ENCOUNTER 2017-02-07 09:16 | Emergency (ER) | payer OTHER, MEDICARE ==
--- NOTE | 2017-02-07 09:45 | EDPHY ---
H & P Stated Complaint: Abdo pain since last night, lower abdo. Time Seen by Provider: 02/07/17 09:34 HPI/ROS: CHIEF COMPLAINT: Chronic abdominal pain HISTORY OF PRESENT ILLNESS: The patient is a 76 y/o female, with 12 ED visits this year, complaining of recurrent abdominal pain. She has received extensive work up for this during previous visits this year. She states she has followed up with her PCP, but no recent GI visit for these symptoms. She also voluntarily admitted herself to [facility] this month for alcohol dependence and was discharged home a few days ago. She states she has been sober since discharge. Her pain today is the same as prior episodes. She describes it as constant and diffusely located in her lower abdomen. She has associated constipation for the last two days, but reports she has been eating normally. She has been using a stool softener, though she states her most recent bowel movement 2 days ago was normal. She denies associated nausea, vomiting, diarrhea, fever. REVIEW OF SYSTEMS: Constitutional: No fever, no chills Eyes: No visual changes ENT: No sore throat Respiratory: No cough, no shortness of breath Cardiac: No chest pain Gastrointestinal: see HPI Genitourinary: No hematuria, no dysuria Musculoskeletal: No leg pain or swelling Skin: No rash Neurological: No headache, no numbness, no weakness Psychiatric: see HPI - Personal History Tetanus Vaccine Date: 07-15-12 - Medical/Surgical History PMH: PMH includes: 1. Fall with rib fractures 2. Waldenstrom's macroglobulinemia 3. Hypertension 4. Non-Hodgkin lymphoma for 8 years 5. Hip replacements 6. Anxiety 7. Neck surgery 8. Hysterectomy Prior medical records reviewed including ED visit 01/23/17 for fall and admission 11/24/16 for fall. Hx Asthma: No Hx Chronic Respiratory Disease: No Hx Diabetes: No Hx Cardiac Disease: No Hx Renal Disease: No Hx Cirrhosis: No Hx Alcoholism: No Hx HIV/AIDS: No Hx Splenectomy or Spleen Trauma: No Other PMH: 03/2016 Left rib fracture, HTN, Non-Hodkins Lyphoma for 8 years, hysterectomy, bilateral hip replacements. anxiety/NECK SURGERY - Social History Smoking Status: Never smoked Additional Social History: . Former smoker. History of alcohol abuse. - Physical Exam Exam: General Appearance: Alert, elderly, thin, no distress Eyes: Pupils equal and round, no conjunctival pallor or injection ENT, Mouth: Mucous membranes moist Neck: Normal inspection Respiratory: Lungs are clear to auscultation Cardiovascular: Regular rate and rhythm Gastrointestinal: Abdomen is soft with mild diffuse lower-abdominal tenderness Neurological: A&O, nonfocal, normal gait Skin: Warm and dry, no rash Extremities: Nontender, no pedal edema Psychiatric: Mood is normal, affect is tearful at times Constitutional: Initial Vital Signs Temperature (C) 36.8 C 02/07/17 09:17 Heart Rate 95 02/07/17 09:17 Respiratory Rate 16 02/07/17 09:17 Blood Pressure 92/64 L 02/07/17 09:17 O2 Sat (%) 96 02/07/17 09:17 O2 Delivery Mode Room Air Allergies/Adverse Reactions: MARCIANO Inhibitors Allergy (Mild, Verified 01/23/17 18:03) COUGH Sulfa (Sulfonamide Antibiotics) Allergy (Mild, Verified 01/23/17 18:03) Rash nitrofurantoin macrocrystalline [From Macrodantin] Allergy (Unknown, Verified 18:03) phenazopyridine HCl [From Pyridium] Allergy (Unknown, Verified 01/23/17 18:03) opiates Allergy (Intermediate, Uncoded 08/17/16 19:53) Constipation DOGS/CATS Allergy (Mild, Uncoded 08/17/16 19:53) ITCHY EYES/SCRATCHY THROAT/RUNNY NOSE ENVIRONMENTAL Allergy (Mild, Uncoded 08/17/16 19:53) ITCHY EYES/SCRATCHY THROAT/RUNNY NOSE SEASONAL Allergy (Mild, Uncoded 08/17/16 19:53) ITCHY EYES/RUNNY NOSE/SCRATCHY THROAT Home Medications: Medication Instructions Recorded Atorvastatin Calcium [Lipitor 40 40 mg PO HS 07/01/16 mg (*)] Cholecalciferol Vit D3 [Vitamin D3 2,000 units PO DAILY 07/01/16 (*)] Omeprazole 20 mg PO DAILY 07/01/16 amLODIPine BESYLATE [Norvasc 5 mg 5 mg PO DAILY 07/01/16 (*)] Hydrochlorothiazide [HCTZ (*)] 25 mg PO DAILY #30 tab 07/02/16 Diazepam [Valium 5 MG (*)] 5 mg PO DAILY PRN #14 tab 09/15/16 Acetaminophen [Tylenol ES 500 mg 500 - 1,000 mg PO TID PRN 11/24/16 (*)] Aspirin EC [Aspirin EC 81 mg (*)] 81 mg PO DAILY 11/24/16 Cetirizine [ZyrTEC 10 mg (*)] 10 mg PO DAILY PRN 11/24/16 Docusate Sodium [Colace 100 MG (*)] 100 mg PO BID PRN 11/24/16 Ibuprofen [Motrin (*)] 200 - 400 mg PO DAILY PRN 11/24/16 Melatonin 3 MG (*) 3 mg PO HS 11/24/16 Potassium Cl [Klor-Con] 10 meq PO DAILY 11/24/16 Sennosides/Docusate Sodium 1 - 2 tab PO BID PRN 11/24/16 [Senokot-S] Cephalexin [Keflex] 500 mg PO TID #15 cap 01/19/17 Medical Decision Making - Diagnostics Imaging: I viewed and interpreted images myself ED Course/Re-evaluation: This is a 76 y/o female with several recent ED visits who presents with chronic abdominal pain and constipation. Her pain is the same as previous visits and she has had extensive work ups for this. She has mild and poorly localized lower abdominal tenderness. Her symptoms are most likely indicative of constipation. She is tearful at times. Plan for IV and basic lab work as well as abdominal x-ray and Fleet enema for symptoms. X-ray reveals constipation. 1045: Reevaluated patient. Her symptoms have resolved after a large bowel movement here. Her abdomen is benign. I recommended a high fiber diet and increased fluid intake to prevent future episodes of constipation. She's been referred to her PCP and GI for follow up a needed. Return precautions given. She is comfortable with this plan. Differential Diagnosis: Differential diagnosis includes though it is not limited to appendicitis, cholecystitis, diverticulitis, pyelonephritis, bowel perforation, small bowel obstruction. - Data Points Laboratory Results: Laboratory Results 02/07/17 09:55 02/07/17 09:55 Departure - Departure Disposition: Home, Routine, Self-Care Clinical Impression: Chronic abdominal pain Constipation Qualifiers: Constipation type: other constipation type Qualified Code(s): K59.09 - Other constipation Condition: Good Instructions: Constipation (ED), High Fiber Diet (ED), Chronic Abdominal Pain ( ED) Additional Instructions: 1. Increase fiber and fluid intake to prevent constipation. 2. You can try [id number] laxatives and enemas as directed on the packaging for constipation. 3. Follow up with your primary care provider and a oil well services field supervisor next week for continued symptoms. 4. Return for worsening of condition. Referrals: Darien Holliday MD [Primary Care Provider] - As per Instructions Cipriano Ray MD [Medical Doctor] - As per Instructions Report Scribed for: Jacquelin Jimenez Report Scribed by: Henrietta Olivera Date of Report: 02/07/17 Time of Report: 09:45 Physician Review and Approval Statement: 02/07/17 09:45 Portions of this note were transcribed by a medical records clerk. I personally performed a history, physical exam, medical decision making, and confirmed accuracy of information the transcribed note.
[2017-02-07 10:08] LABS: % IMMATURE GRANULYOCYTES 0.2 % (0.0-1.1); ABSOLUTE IMMATURE GRANULOCYTES 0.01 10^3/uL (0.00-0.10); ADD DIFF? NO; ADD MORPH? NO; ADD SCAN? NO; ATYPICAL LYMPHOCYTE FLAG 10 (0-99); FRAGMENT RBC FLAG 0 (0-99); HEMOGLOBIN 13.1 g/dL (12.6-16.3); LEFT SHIFT FLG 0 (0-99); LIPEMIA HEMOLYSIS FLAG 90 (0-99); MEAN CELL HEMOGLOBIN 32.4 pg (27.9-34.1); MEAN CELL HEMOGLOBIN CONCENTR. 34.5 g/dL (32.4-36.7); MEAN CELL VOLUME 94.1 fL (81.5-99.8); MEAN PLATELET VOLUME 10.6 fL (8.7-11.7); PLATELET CLUMPS FLAG 0 (0-99); PLATELET COUNT 284 10^3/uL (150-400); RED BLOOD CELL COUNT 4.04 10^6/uL (4.18-5.33); RED CELL DISTRIBUTION WIDTH 14.4 % (11.5-15.2)
[2017-02-07 10:38] LABS: ANION GAP 10 mEq/L (8-16); CALCIUM 9.8 mg/dL (8.5-10.4); CARBON DIOXIDE 24 mEq/l (22-31); CHLORIDE 99 mEq/L (97-110); CREATININE 0.6 mg/dL (0.6-1.0); GLOMERULAR FILTRATION RATE > 60; GLUCOSE 186 mg/dL (70-100); POTASSIUM 3.5 mEq/L (3.5-5.2); SODIUM 133 mEq/L (134-144)
[2017-02-07 11:32] VITALS: BP 120/74; PULSE 76; RESP 16; TEMP 98.4; O2SAT 94
== END 2017-02-07 11:10 | disposition home or self-care (01) ==
DX: K59.09 Other constipation (principal); I10 Essential (primary) hypertension; Z90.710 Acquired absence of both cervix and uterus; Z87.891 Personal history of nicotine dependence; Z79.82 Long term (current) use of aspirin

== ENCOUNTER 2017-02-07 17:01 | Emergency (ER) | payer OTHER, MEDICARE ==
--- NOTE | 2017-02-07 17:26 | EDPHY ---
HPI/HX/ROS/PE/MDM Narrative: CHIEF COMPLAINT: Constipation, abdominal pain HISTORY OF PRESENT ILLNESS: This patient is a 76 year old female returning to the Emergency Department this evening after a visit this morning complaining of continuing abdominal pain. She has received extensive workup for this during 13 previous visits this year. She denies recent GI followup. She states she was recently discharged from a voluntary admission to [facility] for alcohol dependence, and has been sober since. She is concerned that her abdominal discomfort has not resolved despite her treatment this morning. She describes her pain as "crampy" and localized to her lower abdomen. She denies vomiting, fever, and diarrhea. No chills, chest pain, shortness of breath, palpitations, urinary complaints, headache, lightheadedness. REVIEW OF SYSTEMS: Aside from elements discussed in the HPI, a comprehensive 10-point review of systems was reviewed and is negative. PAST MEDICAL HISTORY: 1. Spine surgery, 2. Hypertension, 3. Non-Hodgkin's Lymphoma, 4. Hip replacements, 5. Waldenstrom's macroglobulinemia, 6. Anxiety 7. Hysterectomy 8. Fall with rib fractures Prior medical records reviewed including ED visit 02/07/17. SOCIAL HISTORY: . History of alcohol abuse. Former smoker. VITAL SIGNS: Reviewed by me GENERAL: Thin, elderly appearing female. No respiratory distress. HEENT: Benign exam. Slightly dry mucous membranes. LUNGS: Clear to auscultation bilaterally, no wheezes, rhonchi or rales. CARDIAC: Systolic murmur. Regular rate and rhythm, no rubs, or gallops. ABDOMEN: Mild diffuse abdominal tenderness worse in the lower quadrants bilaterally. No guarding or rebound. Soft. No distension. BACK: No CVA tenderness. EXTREMITIES: No trauma. No edema. Range of motion is normal throughout. NEURO: Alert and oriented, grossly nonfocal. SKIN: Warm and dry, no rash. PSYCHIATRIC: Normal mentation, no agitation. Portions of this note were transcribed by a auditor medical claims. I personally performed a history, physical exam, medical decision making, and confirmed accuracy of information the transcribed note. ED Course: This is a 76 year old female presenting with continuing abdominal discomfort despite treatment here this morning. She has diffuse abdominal tenderness. Abdominal x-ray this morning revealed constipation. She was treated with Fleet enema, and her symptoms had resolved prior to discharge this morning following that treatment, but have since returned. I reviewed the patient's x-rays with her. We discussed the fact that constipation may take a bit of time to resolve. We discussed the fact that her treatment would be most comfortable at home. She does not wish to have another Fleet's enema in the emergency department. She was discharged with magnesium citrate and instructions to use it as directed. She was given 20 mg of Bentyl for her discomfort. MDM: After obtaining the patient's history and performing an examination, differential diagnosis considered included but was not limited to constipation, bowel obstruction, obstipation, gastritis, chronic abdominal pain, and other causes. - Data Points Medications Given: Discontinued Medications Dicyclomine HCl (Bentyl) 20 mg PO EDNOW ONE Stop: 02/07/17 17:38 Last Admin: 02/07/17 17:55 Dose: 20 mg Magnesium Citrate (Magnesium Citrate) 300 ml PO ONCE ONE Stop: 02/07/17 17:40 Last Admin: 02/07/17 17:55 Dose: 1 btl General Time Seen by Provider: 02/07/17 17:10 Initial Vital Signs: Initial Vital Signs Temperature (C) 36.6 C 02/07/17 17:03 O2 Delivery Mode Room Air Allergies/Adverse Reactions: MARCIANO Inhibitors Allergy (Mild, Verified 01/23/17 18:03) COUGH Sulfa (Sulfonamide Antibiotics) Allergy (Mild, Verified 01/23/17 18:03) Rash nitrofurantoin macrocrystalline [From Macrodantin] Allergy (Unknown, Verified 18:03) phenazopyridine HCl [From Pyridium] Allergy (Unknown, Verified 01/23/17 18:03) opiates Allergy (Intermediate, Uncoded 08/17/16 19:53) Constipation DOGS/CATS Allergy (Mild, Uncoded 08/17/16 19:53) ITCHY EYES/SCRATCHY THROAT/RUNNY NOSE ENVIRONMENTAL Allergy (Mild, Uncoded 08/17/16 19:53) ITCHY EYES/SCRATCHY THROAT/RUNNY NOSE SEASONAL Allergy (Mild, Uncoded 08/17/16 19:53) ITCHY EYES/RUNNY NOSE/SCRATCHY THROAT Home Medications: Medication Instructions Recorded Atorvastatin Calcium [Lipitor 40 40 mg PO HS 07/01/16 mg (*)] Cholecalciferol Vit D3 [Vitamin D3 2,000 units PO DAILY 07/01/16 (*)] Omeprazole 20 mg PO DAILY 07/01/16 amLODIPine BESYLATE [Norvasc 5 mg 5 mg PO DAILY 07/01/16 (*)] Hydrochlorothiazide [HCTZ (*)] 25 mg PO DAILY #30 tab 07/02/16 Diazepam [Valium 5 MG (*)] 5 mg PO DAILY PRN #14 tab 09/15/16 Acetaminophen [Tylenol ES 500 mg 500 - 1,000 mg PO TID PRN 11/24/16 (*)] Aspirin EC [Aspirin EC 81 mg (*)] 81 mg PO DAILY 11/24/16 Cetirizine [ZyrTEC 10 mg (*)] 10 mg PO DAILY PRN 11/24/16 Docusate Sodium [Colace 100 MG (*)] 100 mg PO BID PRN 11/24/16 Ibuprofen [Motrin (*)] 200 - 400 mg PO DAILY PRN 11/24/16 Melatonin 3 MG (*) 3 mg PO HS 11/24/16 Potassium Cl [Klor-Con] 10 meq PO DAILY 11/24/16 Sennosides/Docusate Sodium 1 - 2 tab PO BID PRN 11/24/16 [Senokot-S] Cephalexin [Keflex] 500 mg PO TID #15 cap 01/19/17 Departure - Departure Disposition: Home, Routine, Self-Care Clinical Impression: Constipation Condition: Good Instructions: Magnesium Citrate (By mouth), Constipation (ED), High Fiber Diet (ED), Chronic Abdominal Pain (ED) Additional Instructions: 1. You may try Magnesium Citrate as described in the attached instructions. Drink 1/2 the bottle, weight 4 hours. If you do not have significant stool output you may drink the other half of the bottle. 2. Increase fiber and fluid intake to prevent future constipation. 3. Follow up with your primary care provider and a lactation specialist next week for continued symptoms. 4. Return to the Emergency Department for vomiting, uncontrolled diarrhea, severe pain, or other worsening of condition. Referrals: Darien Holliday MD [Primary Care Provider] - As per Instructions Cipriano Ray MD [Medical Doctor] - As per Instructions Report Scribed for: Annie Rosado Report Scribed by: Vannessa Saha Date of Report: 02/07/17 Time of Report: 17:32
[2017-02-07] MEDS ORDERED: DICYCLOMINE 10 MG CAP PO ONE (17:37)
[2017-02-07] MEDS ORDERED: MAGNESIUM CITRATE 300 ML BOTTLE PO ONE (17:39)
[2017-02-07 18:22] VITALS: BP 110/68; PULSE 75; RESP 18; TEMP 98.2; O2SAT 94
== END 2017-02-07 18:23 | disposition home or self-care (01) ==
DX: K59.00 Constipation, unspecified (principal); I10 Essential (primary) hypertension; Z85.72 Personal history of non-Hodgkin lymphomas; Z87.891 Personal history of nicotine dependence; Z79.82 Long term (current) use of aspirin

== ENCOUNTER 2017-02-09 08:50 | Emergency (ER) | payer OTHER, MEDICARE ==
[~2017-02-09 08:50] MED LIST: DICYCLOMINE 20 MG TAB PO SCH; GABAPENTIN 300 MG CAP PO SCH
[2017-02-09 08:56] VITALS: RESP 16
[2017-02-09] MEDS ORDERED: NS 1,000 ML IV ONE (09:20)
[2017-02-09] MEDS ORDERED: DICYCLOMINE 10 MG CAP PO ONE (09:21)
[2017-02-09 09:38] LABS: % IMMATURE GRANULYOCYTES 0.4 % (0.0-1.1); ABSOLUTE IMMATURE GRANULOCYTES 0.02 10^3/uL (0.00-0.10); ADD DIFF? NO; ADD MORPH? NO; ADD SCAN? NO; ATYPICAL LYMPHOCYTE FLAG 10 (0-99); FRAGMENT RBC FLAG 0 (0-99); HEMATOCRIT 37.6 % (38.0-47.0); HEMOGLOBIN 13.1 g/dL (12.6-16.3); LEFT SHIFT FLG 0 (0-99); LIPEMIA HEMOLYSIS FLAG 90 (0-99); MEAN CELL HEMOGLOBIN 32.6 pg (27.9-34.1); MEAN CELL HEMOGLOBIN CONCENTR. 34.8 g/dL (32.4-36.7); MEAN CELL VOLUME 93.5 fL (81.5-99.8); MEAN PLATELET VOLUME 11.1 fL (8.7-11.7); PLATELET CLUMPS FLAG 0 (0-99); PLATELET COUNT 283 10^3/uL (150-400); RED BLOOD CELL COUNT 4.02 10^6/uL (4.18-5.33); RED CELL DISTRIBUTION WIDTH 14.2 % (11.5-15.2)
[2017-02-09 09:47] LABS: PROTIME(PATIENT) 13.1 SEC (12.0-15.0)
[2017-02-09 09:48] LABS: APTT 26.5 SEC (23.0-38.0)
[2017-02-09 09:51] LABS: ALANINE AMINOTRANSFERASE 32 IU/L (9-52); ALBUMIN 4.1 g/dL (3.5-5.0); ALKALINE PHOSPHATASE 132 IU/L (38-126); ANION GAP 11 mEq/L (8-16); ASPARTATE AMINOTRANSFERASE 32 IU/L (14-46); BILIRUBIN-CONJUGATED 0.4 mg/dL (0.0-0.5); BILIRUBIN-UNCONJUGATED 0.6 mg/dL (0.0-1.1); CALCIUM 9.7 mg/dL (8.5-10.4); CARBON DIOXIDE 22 mEq/l (22-31); CHLORIDE 99 mEq/L (97-110); CREATININE 0.6 mg/dL (0.6-1.0); GLOMERULAR FILTRATION RATE > 60; GLUCOSE 201 mg/dL (70-100); POTASSIUM 3.7 mEq/L (3.5-5.2); SODIUM 132 mEq/L (134-144); TOTAL PROTEIN 6.3 g/dL (6.3-8.2)
--- NOTE | 2017-02-09 10:45 | EDPHY ---
H & P Stated Complaint: seen twice 2 days ago/abd pain/nothing has changed/just doesn' t know what t HPI/ROS: CHIEF COMPLAINT: Abdominal pain, constipation HISTORY OF PRESENT ILLNESS: Patient complains of ongoing right-sided abdominal pain. This is been present for greater than 2 weeks. She was seen here twice in 1 day 2 days ago. She was treated for constipation with magnesium citrate a dose of Bentyl here. She says that it helped for 1 night, and she had 1 episode of diarrhea yesterday. But the pain has returned. It is mild to moderate. Worse with palpation and movement. Does not radiate. Nausea but no vomiting. No fever chills. No trauma or injury. No pelvic or vaginal complaints. She has a long history of chronic abdominal pain that has no formal diagnosis. She has no fever or chills. She has no other associated complaints or modifying factors. PREVIOUS ABDOMINAL SURGERIES/DIAGNOSES: None REVIEW OF SYSTEMS: Ten systems reviewed and are negative unless otherwise noted in the HPI EXAMINATION: General Appearance: Alert, no distress Head: normocephalic, atraumatic Eyes: Pupils equal and round, no conjunctival pallor or injection ENT, Mouth: Mucous membranes moist Neck: Normal inspection, supple, non-tender Respiratory: Lungs are clear to auscultation Cardiovascular: Regular rate and rhythm Gastrointestinal: Bowel sounds present in all 4 quadrants symmetrically. Abdomen is soft and nontender. No distention. No guarding No tympany. No rigidity. Non-acute abdomen. Back: non-tender, no bony abnormalities Neurological: A&O, nonfocal, normal gait Skin: Warm and dry, no rash Extremities: Nontender, no pedal edema Psychiatric: Mood and affect normal DIFFERENTIAL DIAGNOSES: Including but not limited to chronic abdominal pain, irritable bowel syndrome, constipation, obstipation, enteritis, colitis, diverticulitis MDM: 9:20 a.m. Chronic abdominal pain with history of constipation opiate use. Abdominal exam is completely benign. Suspect this is multifactorial. Laboratory studies have been ordered. I have discussed the case with skilled nursing case manager. I suspect this is multifactorial with the possibility of a mental health component to this. 10:45 a.m. Laboratory studies are all within normal limits. I did administer Bentyl and she has some improvement of her complaints. 11:45 a.m. Pain has minimally improved. I had a very lengthy discussion with patient regarding discharge home with the following addition to her medications. Add Neurontin 300 mg three times daily, add MiraLax at least once daily, add Senokot once daily to twice daily. Refrain from taking her narcotics denies or reduce the dose in half. Contact her primary care physician office tomorrow to be seen tomorrow Friday. Additionally, the nurse skilled nursing case manager will attempt to do so and facilitate an appointment free tomorrow. Return here for any worsening pain, fever, chills or vomiting. I do not appreciate any abnormal physical findings on today's examination, and this is 3 abdominal examinations over the course of her stay. She is comfortable with this plan and we discharged home with the medications and hand as they have been provided by the [facility] from our pharmacy. ED Precautions: Worsening pain. Fever. Bloody stools. Bloody emesis. Constipation or diarrhea. SUPERVISION: Case discussed at length with Dr. Garcia Source: Patient, Old records Exam Limitations: No limitations - Personal History Current Tetanus/Diphtheria Vaccine: Yes Tetanus Vaccine Date: 07-15-12 - Medical/Surgical History Hx Asthma: No Hx Chronic Respiratory Disease: No Hx Diabetes: No Hx Cardiac Disease: No Hx Renal Disease: No Hx Cirrhosis: No Hx Alcoholism: No Hx HIV/AIDS: No Hx Splenectomy or Spleen Trauma: No Other PMH: 03/2016 Left rib fracture, HTN, Non-Hodkins Lyphoma for 8 years, hysterectomy, bilateral hip replacements. anxiety/NECK SURGERY - Social History Smoking Status: Never smoked Constitutional: Initial Vital Signs Temperature (C) 97.5 F 02/09/17 08:53 Heart Rate 92 02/09/17 08:53 Respiratory Rate 16 02/09/17 08:53 Blood Pressure 151/86 H 02/09/17 08:53 O2 Sat (%) 94 02/09/17 08:53 O2 Delivery Mode Room Air Allergies/Adverse Reactions: MARCIANO Inhibitors Allergy (Mild, Verified 02/09/17 08:52) COUGH Sulfa (Sulfonamide Antibiotics) Allergy (Mild, Verified 02/09/17 08:52) Rash nitrofurantoin macrocrystalline [From Macrodantin] Allergy (Unknown, Verified 08:52) phenazopyridine HCl [From Pyridium] Allergy (Unknown, Verified 02/09/17 08:52) opiates Allergy (Intermediate, Uncoded 08/17/16 19:53) Constipation DOGS/CATS Allergy (Mild, Uncoded 08/17/16 19:53) ITCHY EYES/SCRATCHY THROAT/RUNNY NOSE ENVIRONMENTAL Allergy (Mild, Uncoded 08/17/16 19:53) ITCHY EYES/SCRATCHY THROAT/RUNNY NOSE SEASONAL Allergy (Mild, Uncoded 08/17/16 19:53) ITCHY EYES/RUNNY NOSE/SCRATCHY THROAT Home Medications: Medication Instructions Recorded Atorvastatin Calcium [Lipitor 40 40 mg PO HS 07/01/16 mg (*)] Cholecalciferol Vit D3 [Vitamin D3 2,000 units PO DAILY 07/01/16 (*)] Omeprazole 20 mg PO DAILY 07/01/16 amLODIPine BESYLATE [Norvasc 5 mg 5 mg PO DAILY 07/01/16 (*)] Hydrochlorothiazide [HCTZ (*)] 25 mg PO DAILY #30 tab 07/02/16 Diazepam [Valium 5 MG (*)] 5 mg PO DAILY PRN #14 tab 09/15/16 Acetaminophen [Tylenol ES 500 mg 500 - 1,000 mg PO TID PRN 11/24/16 (*)] Aspirin EC [Aspirin EC 81 mg (*)] 81 mg PO DAILY 11/24/16 Cetirizine [ZyrTEC 10 mg (*)] 10 mg PO DAILY PRN 11/24/16 Docusate Sodium [Colace 100 MG (*)] 100 mg PO BID PRN 11/24/16 Ibuprofen [Motrin (*)] 200 - 400 mg PO DAILY PRN 11/24/16 Melatonin 3 MG (*) 3 mg PO HS 11/24/16 Potassium Cl [Klor-Con] 10 meq PO DAILY 11/24/16 Sennosides/Docusate Sodium 1 - 2 tab PO BID PRN 11/24/16 [Senokot-S] Cephalexin [Keflex] 500 mg PO TID #15 cap 01/19/17 Dicyclomine [Bentyl 20 MG (*)] 20 mg PO TID PRN #15 tab 02/09/17 Gabapentin [Neurontin 300 MG (*)] 300 mg PO TID PRN #15 cap 02/09/17 Medical Decision Making - Data Points Laboratory Results: Laboratory Results 02/09/17 09:25 02/09/17 09:25 02/09/17 02/09/17 02/09/17 11:03 09:25 09:25 WBC RBC Hgb Hct MCV MCH MCHC RDW Plt Count MPV Neut % (Auto) Lymph % (Auto) [place] % (Auto) Eos % (Auto) Baso % (Auto) Nucleat RBC Rel Count Absolute Neuts (auto) Absolute Lymphs (auto) Absolute Monos (auto) Absolute Eos (auto) Absolute Basos (auto) Absolute Nucleated RBC Immature Gran % Immature Gran # PT 13.1 SEC SEC (12.0-15.0) INR 1.00 (0.83-1.16) APTT 26.5 SEC SEC (23.0-38.0) Sodium 132 mEq/L L mEq/L (134-144) Potassium 3.7 mEq/L mEq/L (3.5-5.2) Chloride 99 mEq/L mEq/L (97-110) Carbon Dioxide 22 mEq/l mEq/l (22-31) Anion Gap 11 mEq/L mEq/L (8-16) BUN 13 mg/dL mg/dL (7-23) Creatinine 0.6 mg/dL mg/dL (0.6-1.0) Estimated GFR > 60 Glucose 201 mg/dL H mg/dL (70-100) Calcium 9.7 mg/dL mg/dL (8.5-10.4) Total Bilirubin 1.0 mg/dL mg/dL (0.1-1.4) Conjugated Bilirubin 0.4 mg/dL mg/dL (0.0-0.5) Unconjugated Bilirubin 0.6 mg/dL mg/dL (0.0-1.1) AST 32 IU/L IU/L (14-46) ALT 32 IU/L IU/L (9-52) Alkaline Phosphatase 132 IU/L H IU/L (38-126) Total Protein 6.3 g/dL g/dL (6.3-8.2) Albumin 4.1 g/dL g/dL (3.5-5.0) Lipase 42.0 IU/L IU/L (23-300) Urine Color PALE YELLOW Urine Appearance CLEAR Urine pH 7.0 (5.0-7.5) Ur Specific [place] 1.008 (1.002-1.030) Urine Protein NEGATIVE (NEGATIVE) Urine Ketones NEGATIVE (NEGATIVE) Urine Blood NEGATIVE (NEGATIVE) Urine Nitrate NEGATIVE (NEGATIVE) Urine Bilirubin NEGATIVE (NEGATIVE) Urine Urobilinogen NEGATIVE EU EU (0.2-1.0) Ur Leukocyte Esterase 1+ H (NEGATIVE) Urine RBC 1-3 /hpf /hpf (0-3) Urine WBC 1-3 /hpf /hpf (0-3) Ur Epithelial Cells TRACE /lpf /lpf (NONE-1+) Urine Mucus TRACE /lpf /lpf (NONE-1+) Urine Glucose NEGATIVE (NEGATIVE) 02/09/17 09:25 WBC 5.71 10^3/uL 10^3/uL (3.80-9.50) RBC 4.02 10^6/uL L 10^6/uL (4.18-5.33) Hgb 13.1 g/dL g/dL (12.6-16.3) Hct 37.6 % L % (38.0-47.0) MCV 93.5 fL fL (81.5-99.8) MCH 32.6 pg pg (27.9-34.1) MCHC 34.8 g/dL g/dL (32.4-36.7) RDW 14.2 % % (11.5-15.2) Plt Count 283 10^3/uL 10^3/uL (150-400) MPV 11.1 fL fL (8.7-11.7) Neut % (Auto) 57.5 % % (39.3-74.2) Lymph % (Auto) 34.0 % % (15.0-45.0) [place] % (Auto) 7.0 % % (4.5-13.0) Eos % (Auto) 0.4 % L % (0.6-7.6) Baso % (Auto) 0.7 % % (0.3-1.7) Nucleat RBC Rel Count 0.0 % % (0.0-0.2) Absolute Neuts (auto) 3.29 10^3/uL 10^3/uL (1.70-6.50) Absolute Lymphs (auto) 1.94 10^3/uL 10^3/uL (1.00-3.00) Absolute Monos (auto) 0.40 10^3/uL 10^3/uL (0.30-0.80) Absolute Eos (auto) 0.02 10^3/uL L 10^3/uL (0.03-0.40) Absolute Basos (auto) 0.04 10^3/uL 10^3/uL (0.02-0.10) Absolute Nucleated RBC 0.00 10^3/uL 10^3/uL (0-0.01) Immature Gran % 0.4 % % (0.0-1.1) Immature Gran # 0.02 10^3/uL 10^3/uL (0.00-0.10) PT INR APTT Sodium Potassium Chloride Carbon Dioxide Anion Gap BUN Creatinine Estimated GFR Glucose Calcium Total Bilirubin Conjugated Bilirubin Unconjugated Bilirubin AST ALT Alkaline Phosphatase Total Protein Albumin Lipase Urine Color Urine Appearance Urine pH Ur Specific [place] Urine Protein Urine Ketones Urine Blood Urine Nitrate Urine Bilirubin Urine Urobilinogen Ur Leukocyte Esterase Urine RBC Urine WBC Ur Epithelial Cells Urine Mucus Urine Glucose Medications Given: Discontinued Medications Dicyclomine HCl (Bentyl) 20 mg PO EDNOW ONE Stop: 02/09/17 09:22 Last Admin: 02/09/17 09:48 Dose: 20 mg Sodium Chloride (Ns) 1,000 mls @ 0 mls/hr IV ONCE ONE; Wide Open PRN Reason: Protocol Stop: 02/09/17 09:21 Last Admin: 02/09/17 09:32 Dose: 1,000 mls Departure - Departure Disposition: Home, Routine, Self-Care Clinical Impression: Abdominal pain Qualifiers: Abdominal location: generalized Qualified Code(s): R10.84 - Generalized abdominal pain Constipation Qualifiers: Constipation type: drug induced constipation Qualified Code(s): K59.03 - Drug induced constipation Condition: Good Instructions: Polyethylene Glycol 3350 (By mouth), Constipation (ED), High Fiber Diet (ED), Fleet Enema (ED) Additional Instructions: 1. MiraLax by mouth once daily every day 2. Continue Senokot S twice daily 3. Increase water intake 4. Increase fiber intake 5. Neurontin 300 mg as prescribed as needed 6. Recommend discontinuing [place] or breaking in half for tonight's dose 7. Bentyl as prescribed as needed 8.Follow up with primary care physician's office tomorrow or Friday 9. Return to the emergency department for worsening pain, vomiting, fever Referrals: Darien Holliday MD [Primary Care Provider] - As per Instructions Prescriptions: Dicyclomine [Bentyl 20 MG (*)] 20 mg PO TID PRN #15 tab PRN Reason: Pain, Mild Gabapentin [Neurontin 300 MG (*)] 300 mg PO TID PRN #15 cap PRN Reason: Pain, Mild
[2017-02-09 11:08] VITALS: TEMP 97.9; O2SAT 95
[2017-02-09 11:12] LABS: COLOR PALE YELLOW; LEUKOCYTE ESTERASE,URINE 1+ (NEGATIVE); NITRITE,URINE NEGATIVE (NEGATIVE)
[2017-02-09 11:17] LABS: MUCUS TRACE /lpf (NONE-1+)
[2017-02-09 11:53] VITALS: BP 133/76; PULSE 81
== END 2017-02-09 11:53 | disposition home or self-care (01) ==
DX: K59.03 Drug induced constipation (principal); I10 Essential (primary) hypertension; Z79.82 Long term (current) use of aspirin; Z85.72 Personal history of non-Hodgkin lymphomas

== ENCOUNTER → 2017-03-27 | Outpatient (CLI) | payer OTHER, MEDICARE | LOC: BMCIMAGING 09:46 | PROVIDERS: ATTEND Nurse Practitioner | DX: Z09 Encounter for follow-up examination after completed treatment for conditions other than malignant neoplasm (principal); Z98.1 Arthrodesis status ==

== ENCOUNTER → 2017-04-03 | Outpatient (CLI) | payer OTHER, MEDICARE | LOC: BMCIMAGING 09:42 | PROVIDERS: ATTEND Physician Assistant | DX: M51.36 Other intervertebral disc degeneration, lumbar region (principal); M41.86 Other forms of scoliosis, lumbar region | CPT/HCPCS: 84080-90 ==

== ENCOUNTER → 2017-04-12 | Outpatient (CLI) | payer OTHER, MEDICARE | LOC: FIMAGING 07:59 | PROVIDERS: ATTEND Physician Assistant | DX: M41.86 Other forms of scoliosis, lumbar region (principal); M51.35 Other intervertebral disc degeneration, thoracolumbar region; M51.25 Other intervertebral disc displacement, thoracolumbar region; M51.36 Other intervertebral disc degeneration, lumbar region; M51.26 Other intervertebral disc displacement, lumbar region; M46.95 Unspecified inflammatory spondylopathy, thoracolumbar region; M46.96 Unspecified inflammatory spondylopathy, lumbar region; M48.05 Spinal stenosis, thoracolumbar region; M48.06 Spinal stenosis, lumbar region; N28.1 Cyst of kidney, acquired ==

== ENCOUNTER → 2017-05-20 | Outpatient (CLI) | payer OTHER, MEDICARE | LOC: BMCIMAGING 09:17 | PROVIDERS: ATTEND Podiatrist Foot & Ankle Surgery | DX: M20.11 Hallux valgus (acquired), right foot (principal); M20.12 Hallux valgus (acquired), left foot; M77.32 Calcaneal spur, left foot; M77.31 Calcaneal spur, right foot; M19.071 Primary osteoarthritis, right ankle and foot ==

== ENCOUNTER → 2017-07-07 | Outpatient (CLI) | payer OTHER, MEDICARE | LOC: BMCIMAGING 14:01 | PROVIDERS: ATTEND Podiatrist Foot & Ankle Surgery | DX: Z09 Encounter for follow-up examination after completed treatment for conditions other than malignant neoplasm (principal); Z98.890 Other specified postprocedural states ==

== ENCOUNTER → 2017-08-27 | Outpatient (CLI) | payer OTHER, MEDICARE | LOC: BMCIMAGING 11:14 | PROVIDERS: ATTEND Physician Assistant | DX: Z98.1 Arthrodesis status (principal) ==

== ENCOUNTER → 2017-10-18 | Outpatient (CLI) | payer OTHER, MEDICARE | LOC: FIMAGING 08:00 | PROVIDERS: ATTEND Podiatrist Foot & Ankle Surgery | DX: M79.671 Pain in right foot (principal); Z98.890 Other specified postprocedural states ==

== ENCOUNTER → 2017-11-01 | Outpatient (CLI) | payer OTHER, MEDICARE | LOC: FIMAGING 11:32 | PROVIDERS: ATTEND Neurological Surgery | DX: M51.24 Other intervertebral disc displacement, thoracic region (principal); M51.34 Other intervertebral disc degeneration, thoracic region; M47.26 Other spondylosis with radiculopathy, lumbar region; M43.16 Spondylolisthesis, lumbar region ==

== ENCOUNTER 2017-11-21 05:38 | Inpatient (IN) | payer OTHER, MEDICARE ==
[2017-11-21] MEDS ORDERED: ceFAZolin 2 GM/SWFI 2 GM/20 ML SYR IVP ONE (06:08)
[2017-11-21] MEDS ORDERED: LR 1,000 ML IV ONE (06:10)
[2017-11-21] MEDS ORDERED: LIDOCAINE 1% 2 ML INJ ID PRN (06:10)
[2017-11-21] MEDS ORDERED: BUPIVACAINE 0.25% 30 ML SDV ONE (06:48)
[2017-11-21] MEDS ORDERED: THROMBIN (BOVINE) 5,000 UNIT VIAL TP ONE (06:48)
[2017-11-21] MEDS ORDERED: CHLORHEXIDINE GLUC HIBICLENS 118 ML BTL TP ONE (06:48)
[2017-11-21] MEDS ORDERED: LIDOCAINE 1% 300 MG/30 ML SDV ONE (06:48)
[2017-11-21] MEDS ORDERED: SURGIFLO MATRIX KIT WITH THROMBIN 8ml TP ONE (06:48)
[2017-11-21] MEDS ORDERED: BACITRACIN 50,000 UNITS/10 ML SYR IRR ONE ×2 (06:49)
--- NOTE | 2017-11-21 07:00 | PDHPUP ---
History & Physical Update H&P update statement: This history and physical update is based on an assessment of the patient which was completed after admission or registration (within 24 hours), but prior to the surgery/procedure. H&P update: H&P reviewed & patient examined, no change in patient's condition since H&P completed
[2017-11-21 07:05] LABS: PLATELET COUNT 299 10^3/uL (150-400)
--- NOTE | 2017-11-21 07:08 | PDANEPAE ---
ANE History of Present Illness back pain ANE Past Medical History - Cardiovascular History Hx Hypertension: Yes Hx Arrhythmias: No Hx Chest Pain: No Hx Coronary Artery / Peripheral Vascular Disease: No Hx CHF / Valvular Disease: No Hx Palpitations: No - Pulmonary History Hx COPD: No Hx Asthma/Reactive Airway Disease: No Hx Recent Upper Respiratory Infection: No Hx Oxygen in Use at Home: No Hx Sleep Apnea: No - Neurologic History Hx Cerebrovascular Accident: No Hx Seizures: No Hx Dementia: No - Endocrine History Hx Diabetes: No - Renal History Hx Renal Disorders: No - Liver History Hx Hepatic Disorders: No - Neurological & Psychiatric Hx Hx Neurological and Psychiatric Disorders: Yes Neurological / Psychiatric History Comment: ANXIETY - VALIUM RARE - Cancer History Hx Cancer: Yes 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 HYSTERECTOMY. CHULA REIJ. BUNION R 06/2017. CERVICAL FUSION 08/2016 ANE Review of Systems Review of Systems: ANE Patient History - Allergies Allergies/Adverse Reactions: MARCIANO Inhibitors Allergy (Mild, Verified 02/09/17 08:52) COUGH Sulfa (Sulfonamide Antibiotics) Allergy (Mild, Verified 02/09/17 08:52) Rash nitrofurantoin macrocrystalline [From Macrodantin] Allergy (Unknown, Verified 14:16) Unknown phenazopyridine HCl [From Pyridium] Allergy (Unknown, Verified 11/19/17 14:16) Unknown DOGS/CATS Allergy (Mild, Uncoded 08/17/16 19:53) ITCHY EYES/SCRATCHY THROAT/RUNNY NOSE ENVIRONMENTAL Allergy (Mild, Uncoded 08/17/16 19:53) ITCHY EYES/SCRATCHY THROAT/RUNNY NOSE SEASONAL Allergy (Mild, Uncoded 08/17/16 19:53) ITCHY EYES/RUNNY NOSE/SCRATCHY THROAT opiates Adverse Reaction (Mild, Uncoded 11/21/17 06:26) Constipation - Home Medications Home Medications: RX: Atorvastatin Calcium [Lipitor 40 mg (*)] 40 mg PO HS 07/01/16 [Last Taken ] RX: Cholecalciferol Vit D3 [Vitamin D3 (*)] 2,000 units PO DAILY 07/01/16 [Last Taken 11/20/17] RX: Omeprazole 20 mg PO DAILY 07/01/16 [Last Taken 11/20/17] RX: amLODIPine BESYLATE [Norvasc 5 mg (*)] 5 mg PO DAILY 07/01/16 [Last Taken ] RX: Acetaminophen [Tylenol ES 500 mg (*)] 500 - 1,000 mg PO TID PRN 11/24/16 [ Last Taken 11/20/17] RX: Potassium Cl [Klor-Con 10 meq (RX)] 10 meq PO DAILY 11/24/16 [Last Taken 01/02] Miralax 17 gm (*) 11/19/17 [Last Taken Unknown] - NPO status NPO Since - Liquids (Date): 11/20/17 NPO Since - Liquids (Time): 23:00 NPO Since - Solids (Date): 11/20/17 NPO Since - Solids (Time): 18:00 - Smoking Hx Smoking Status: Never smoked - Family Anes Hx Family Hx Anesthesia Complications: NEG ANE Labs/Vital Signs - Labs Result Diagrams: 11/21/17 06:45 11/21/17 06:45 - Vital Signs Blood Pressure: 135/71 Heart Rate: 75 Respiratory Rate: 14 O2 Sat (%): 95 Height: 170.18 cm Weight: 50.802 kg ANE Physical Exam - Airway Neck exam: FROM Mallampati Score: Class 2 Mouth exam: normal dental/mouth exam - Pulmonary Pulmonary: no respiratory distress - Cardiovascular Cardiovascular: regular rate and rhythym - ASA Status ASA Status: II ANE Anesthesia Plan Anesthesia Plan: MAC Total IV Anesthesia: Yes
[2017-11-21 07:10] LABS: INR 0.97 (0.83-1.16); PROTIME(PATIENT) 13.1 SEC (12.0-15.0)
[2017-11-21] MEDS ORDERED: REMIFENTANIL HCL 1 MG VIAL ONE (07:17)
[2017-11-21] MEDS ORDERED: PROPOFOL/EMULSION 500 MG/50 ML BOTTLE IV ONE (07:17)
[2017-11-21] MEDS ORDERED: NALOXONE HCL 0.4 MG/ML INJ IVP PRN (08:19)
[2017-11-21] MEDS ORDERED: HYDROmorphONE/DILAUDID 1 MG/ML INJ IVP PRN (08:19)
[2017-11-21] MEDS ORDERED: ONDANSETRON 4 MG/2 ML VIAL IVP PRN ×2 (08:19→13:28)
[2017-11-21] MEDS ORDERED: HYDROCODONE/APAP 5/325 TAB PO PRN (08:19)
[2017-11-21] MEDS ORDERED: PROMETHAZINE HCL 25 MG/ML INJ IVP PRN (08:19)
--- NOTE | 2017-11-21 09:29 | POSTANESTH ---
Post Anesthetic Evaluation Cardiovascular Status: Normal, Stable Respiratory Status: Normal, Stable Level of Consciousness/Mental Status: Can Participate in Eval Pain Control: Adequate, Prn Tx Ordered Nausea/Vomiting Control: Adequate, Prn Tx Ordered Complications Possibly Related to Anesthesia: None Noted
--- NOTE | 2017-11-21 09:32 | GOP ---
[f rep st] OPERATIVE REPORT DATE OF OPERATION: SURGEON: Diandra Jacobo DO HOUSE PAINTER: Bridgette Roy, PAC. PREOPERATIVE DIAGNOSIS: Chronic pain. POSTOPERATIVE DIAGNOSIS: Chronic pain. PROCEDURE PERFORMED: 1. Thoracic laminectomy, placement of T8-T9 paddle lead with T9-10 laminectomy for a spinal cord sti mulator trial. 2. Impedances. FINDINGS: SPECIMENS: None. ESTIMATED BLOOD LOSS: 20 mL. INDICATIONS: This is a 77-year-old female, who has chronic leg pain and back pain and is not a ely date for further lumbar surgery who was found to be a good candidate for a spinal cord stimulator pad dle lead and trial at the T9-10 laminectomy, so slightly higher secondary to a bulging disk at T10-11 . She elected to move forward. DESCRIPTION OF PROCEDURE: She was identified, consented. Sites were marked. Brought to the operati ng room. Anesthetized under local with MAC. Rolled onto the OR bed with a Alejandro frame. All pressu re points were appropriately padded. Counting up from the sacrum, the first major rib was T11. This was verified by x-ray. She also has a fair amount of scoliosis. We did jacobo this level. She was p repped and draped in the usual sterile fashion. Incision was anesthetized with 0.5% Marcaine with ep inephrine and 1% lidocaine. Incision was made with a 10 blade. Hemostasis was obtained with Bovie a nd bipolar cautery dissecting down onto the laminae of T9 and T10. Placed a Shadow-Line retractor. Placed a [place] 4. Verified we were at the appropriate level. Used a Leksell to remove the spinou s process, interspinous ligament. Used a high-speed drill to take the superior portion of T10 and pe rform a laminotomy at T9-10, opening this with 2 and 3 Kerrisons. We then slid the lead into place. The lead was very difficult to get it midline because the patient is scoliotic; however, with intrao perative testing, we got good coverage in her leg pain with the bottom portion of the lead, which is where we would expect it to give her coverage. We deployed Injex Bumpy anchor, sutured it in place w ith 2-0 silk stitch at 2 positions. Copiously irrigated with over a liter of gentamicin-infused sali ne. Hemostasis was obtained with FloSeal and bipolar. We then closed the fascia with 0 Vicryl pop-o ffs. Created a subcutaneous pocket with Metzenbaum scissors. Placed boots over the lead extension c omplex. Placed the extensions over the lead extension complex, locked into place with a torque wrenc h. Brought the boot over the lead extension complex, tied in position with 2-0 silk ties at 2 positi ons. Checked impedances. All impedances were good. Tunneled out laterally to the left as she would want a right-sided permanent implant, and the straw was discarded. The lead and extensions were coi led in the subcutaneous pocket. The patient's body habitus there is a fair amount of bulk in this area. We then took an x-ray. Verified that we were still in good position. Copiously irri gated with over a liter of gentamicin-infused saline. Closed the subcutaneous layer with 2-0 Vicryl pop-offs. The skin was closed with 3-0 running nylon. A stitch was placed around the lead extension as they exit, and the patient tolerated the procedure well. The wound was dressed with Xeroform gau ze and Medipore tape. FLUIDS: 600 mL crystalloid. URINE OUTPUT: None. DRAINS: None. COMPLICATIONS: None. /[id number]/MODL
--- NOTE | 2017-11-21 09:35 | POSTOPPROG ---
Post Op Note Date of Operation: 11/21/17 Surgeon: Diandra Jacobo [employer] Erp Developer: Bridgette Roy PA-C Anesthesiologist: Dr. Vasquez Anesthesia: IV Sedation, Local (Specify) Pre-op Diagnosis: Chronic pain Post-op Diagnosis: Chronic pain Procedure: Thoracic laminectomy for SCS paddle lead trial Inf/Abcess present in the surg proc area at time of surgery?: No Depth: Deep Incisional (Fascial) EBL: Minimal Plan Plan: 77 yo female s/p thoracic laminectomy for SCS paddle lead trial - neuro checks - pain control - advance diet as tolerated - dc home today Exam patient seen in recovery. having whole body numbness, odd sensation. awake. alert moving all extremities muscle strength at 5/5 sensation intact
[2017-11-21] MEDS ORDERED: traMADol 50 MG TAB PO PRN (09:36)
[2017-11-21] MEDS ORDERED: fentaNYL 100 MCG/2 ML INJ ONE (09:38)
[2017-11-21] MEDS ORDERED: DIAZEPAM 5 MG TAB ONE (09:38)
[2017-11-21] MEDS: fentaNYL 100 MCG/2 ML INJ IVP PRN ×2 (09:40→10:23)
[2017-11-21] MEDS: DIAZEPAM 5 MG TAB PO PRN ×2 (09:42→20:33)
[2017-11-21] MEDS ORDERED: traMADol 50 MG TAB ONE (10:57)
[2017-11-21] MEDS ORDERED: HYDROCODONE/APAP 5/325 TAB ONE (12:36)
[2017-11-21] MEDS ORDERED: ACETAMINOPHEN 325 MG TAB PO PRN (13:28)
[2017-11-21] MEDS ORDERED: METHOCARBAMOL 750 MG TAB PO PRN (13:35)
[2017-11-21] MEDS: ONDANSETRON DISINTEGRATING 4 MG TAB PO PRN (15:14)
[2017-11-21] MEDS: NS 1,000 ML IV SCH (18:05)
[2017-11-21] MEDS: CEPHALEXIN 500 MG CAP PO SCH (18:20)
[2017-11-21] MEDS: HYDROCODONE/APAP 5/325 TAB PO PRN (18:21)
[2017-11-22] MEDS: HYDROCODONE/APAP 5/325 TAB PO PRN ×6 (04:25→21:30)
[2017-11-22] MEDS: NS 1,000 ML IV SCH (04:25)
[2017-11-22] MEDS: CEPHALEXIN 500 MG CAP PO SCH ×4 (05:38→17:27)
[2017-11-22] MEDS: ONDANSETRON DISINTEGRATING 4 MG TAB PO PRN ×2 (06:05→14:26)
[2017-11-22] MEDS ORDERED: ACETAMINOPHEN 500 MG TAB PO PRN (11:21)
[2017-11-22] MEDS ORDERED: DIAZEPAM 5 MG TAB PO PRN (11:21)
--- NOTE | 2017-11-22 11:28 | NEUSURGPN ---
Date of Surgery: 11/21/17 Post Op Day: 1 Assessment/Plan: Assessment: 77 yo female s/p thoracic laminectomy for SCS paddle lead trial POD# 1 Plan: - neuro checks - pain control, back pain is not currently controlled with medications, will change Robaxin to scheduled - advance diet as tolerated -patient may discharge home once pain controlled, will have PT/OT see and eval. Patient does not feel she will be safe at home at this time. Please call neurosurgery with any questions/concerns Subjective: Having terrible back pain, hard to move around due to pain Objective: AxO x3 PERRL 5/5 BUE, BLE Dressings CDI Neuro Check Frequency: per routine Urinary Catheter in Place: No - Physician Discussed Patient with DrAmarilis: Donnell Neurosurgery Physical Exam - Vitals, I&O, Labs I and O 11/21/17 11/22/17 11/23/17 05:59 05:59 05:59 Intake Total 2075 Output Total 450 350 Balance 1625 -350 Weight 50.802 kg Intake: Oral (ml) 300 IV Intake (ml) 900 IV Infused (ml) 875 Ns 1,000 ml @ 75 mls/hr 875 IV CONT ABEL Rx#: [id number] Output: Urine (ml) 450 350 Toilet 450 350 Other: Intake Quantity Yes Sufficient Number of Voids Toilet 1 Vital Signs Temp Pulse Resp BP Pulse Ox 36.7 C 68 16 116/51 L 91 L 11/22/17 07:58 11/22/17 07:58 11/22/17 07:58 11/22/17 07:58 11/22/17 07:58 Laboratory Results 11/21/17 06:45 11/21/17 06:45 ICD10 Worksheet Patient Problems: Problems Problem Status Onset Abdominal pain Acute Arthrodesis status Acute Back pain Acute Cervical spine degeneration Acute Chronic abdominal pain Acute Constipation Acute Dehydration Acute Diarrhea Acute Fall at home Acute Hyponatremia Acute Hyponatremia Acute Lower abdominal pain Acute Lumbar radiculopathy Acute Multiple fractures of ribs Acute Pneumothorax Acute Spinal stenosis of cervical region Acute
--- NOTE | 2017-11-22 12:14 | PDMN ---
Medical Necessity Medical necessity: C/M review: est. > 2 MN LOS for eval and TX acute and severe back pain, difficulty to mobilize due to pain S/P 11/21/2017 surgery - thoracic laminectomy for spinal cord stimulator paddle lead trial requiring ongoing neuro checks, pain management with multiple medications, acute inpt PT/ OT per 11/22/2017 Neurosurgical progress note.
[2017-11-22] MEDS: METHOCARBAMOL 750 MG TAB PO SCH ×2 (16:18→21:26)
--- NOTE | 2017-11-22 17:49 | ASMTCMCOM ---
CM Note CM Note Notes: Pt admitted for stimulator placement. discussed case w/PA, Tanesha Doyle, today who felt pt may need SNF. Pt lives at home w/. PT recommending HHC vs SNF. will see how pt does over next day or two and determine dc plan. CM not able to meet w/pt today, will need to do this on friday. Date Signed: 11/22/2017 05:49 PM Electronically Signed By:Kamilla Ha RN
[2017-11-22] MEDS: ATORVASTATIN CALCIUM 40 MG TAB PO SCH ×2 (21:26→21:27)
[2017-11-23] MEDS: CEPHALEXIN 500 MG CAP PO SCH ×4 (00:10→18:20)
[2017-11-23] MEDS: HYDROCODONE/APAP 5/325 TAB PO PRN ×6 (01:45→22:00)
[2017-11-23] MEDS: PANTOPRAZOLE SODIUM 40 MG TAB PO SCH (08:29)
[2017-11-23] MEDS: CHOLECALCIFEROL VIT D3 1,000 UNITS TAB PO SCH (08:29)
[2017-11-23] MEDS: amLODIPine BESYLATE 5 MG TAB PO SCH (08:29)
[2017-11-23] MEDS: POLYETHYLENE GLYCOL 3350 17 GM PKT PO SCH (08:29)
[2017-11-23] MEDS: METHOCARBAMOL 750 MG TAB PO SCH ×3 (08:29→21:54)
[2017-11-23] MEDS: HYDROCHLOROTHIAZIDE 25 MG TAB PO SCH (08:29)
[2017-11-23] MEDS: POTASSIUM CL 10 MEQ TAB PO SCH (08:29)
[2017-11-23] MEDS ORDERED: NON-FORMULARY NEW DRUG (Omeprazole [Omeprazole] 20 MG) PO SCH (09:00)
--- NOTE | 2017-11-23 10:48 | NEUSURGPN ---
Date of Surgery: 11/21/17 Post Op Day: 2 Assessment/Plan: Assessment: 77 yo female s/p thoracic laminectomy for SCS paddle lead trial POD# 3 Plan: - neuro checks - pain control, back pain is not currently controlled with medications, patient unsure about turning SCS on due to worry of increasing symptoms -patient may discharge per therapies recs once pain controlled, will have PT/OT see and eval. Patient does not feel she is able to go home and take care of herself in her present state -[employer] Rep to come by later today to turn on SCS, controller brought in by . Plan is to remove temp. SCS trial this Friday, will need to be turned on to see if effective prior to removal -Patient discussed with Dr Jacobo Please call neurosurgery with any questions/concerns Subjective: Upper back pain Objective: AxO x3 PERRLA 5/5 BUE,BLE Dressing has light colored drainage, incision under dressing CDI Neuro Check Frequency: per routine Urinary Catheter in Place: No - Physician Discussed Patient with : Donnell Neurosurgery Physical Exam - Vitals, I&O, Labs I and O 11/22/17 11/23/17 11/24/17 05:59 05:59 05:59 Intake Total 2075 900 Output Total 450 950 Balance 1625 -50 Weight 50.802 kg Intake: Oral (ml) 300 750 IV Intake (ml) 900 IV Infused (ml) 875 150 Ns 1,000 ml @ 75 mls/hr 875 150 IV CONT ABEL Rx#: [id number] Output: Urine (ml) 450 950 Toilet 450 950 Other: Intake Quantity Yes Yes Sufficient Number of Voids Toilet 1 1 2 Vital Signs Temp Pulse Resp BP Pulse Ox 36.8 C 77 16 153/68 H 94 11/23/17 07:30 11/23/17 07:30 11/23/17 07:30 11/23/17 07:30 11/23/17 07:30 Laboratory Results 11/21/17 06:45 11/21/17 06:45 ICD10 Worksheet Patient Problems: Problems Problem Status Onset Abdominal pain Acute Arthrodesis status Acute Back pain Acute Cervical spine degeneration Acute Chronic abdominal pain Acute Constipation Acute Dehydration Acute Diarrhea Acute Fall at home Acute Hyponatremia Acute Hyponatremia Acute Lower abdominal pain Acute Lumbar radiculopathy Acute Multiple fractures of ribs Acute Pneumothorax Acute Spinal stenosis of cervical region Acute
[2017-11-23] MEDS: ONDANSETRON DISINTEGRATING 4 MG TAB PO PRN (18:07)
[2017-11-23] MEDS: ATORVASTATIN CALCIUM 40 MG TAB PO SCH (18:19)
[2017-11-24] MEDS: CEPHALEXIN 500 MG CAP PO SCH ×5 (00:55→22:46)
[2017-11-24] MEDS: HYDROCODONE/APAP 5/325 TAB PO PRN ×6 (02:02→22:47)
[2017-11-24] MEDS: ONDANSETRON DISINTEGRATING 4 MG TAB PO PRN ×3 (02:53→16:04)
[2017-11-24] MEDS: PANTOPRAZOLE SODIUM 40 MG TAB PO SCH (09:13)
[2017-11-24] MEDS: CHOLECALCIFEROL VIT D3 1,000 UNITS TAB PO SCH (09:13)
[2017-11-24] MEDS: METHOCARBAMOL 750 MG TAB PO SCH ×3 (09:13→22:47)
[2017-11-24] MEDS: amLODIPine BESYLATE 5 MG TAB PO SCH (09:14)
[2017-11-24] MEDS: HYDROCHLOROTHIAZIDE 25 MG TAB PO SCH (09:16)
[2017-11-24] MEDS: POLYETHYLENE GLYCOL 3350 17 GM PKT PO SCH (09:18)
[2017-11-24] MEDS: POTASSIUM CL 10 MEQ TAB PO SCH (09:22)
--- NOTE | 2017-11-24 09:35 | NEUSURGPN ---
Assessment/Plan: Assessment: 77 yo female s/p thoracic laminectomy for SCS paddle lead trial POD# 4 Plan: - neuro checks - pain control, slightly improved since yesterday -Continue to monitor pain in legs not that spinal cord stim trial has been turned on. -Patient discussed with Dr Jacobo -PT/OT -Case management consult for placement -Discussed with Dr. Jacobo Please call neurosurgery with any questions/concerns Subjective: incisional site pain, some leg pain improvement with the stim turned on. Objective: Incisional dressing c/d/i. MAEx4 5/ and equal in BUE and BLE. - Physician Discussed Patient with : Donnell Neurosurgery Physical Exam - Vitals, I&O, Labs I and O 11/23/17 11/24/17 11/25/17 05:59 05:59 05:59 Intake Total 900 450 Output Total 950 Balance -50 450 Intake: Oral (ml) 750 450 IV Infused (ml) 150 Ns 1,000 ml @ 75 mls/hr 150 IV CONT ABEL Rx#: [id number] Output: Urine (ml) 950 Toilet 950 Other: Intake Quantity Yes Yes Sufficient Number of Voids Toilet 1 1 Vital Signs Temp Pulse Resp BP Pulse Ox 36.8 C 78 16 136/66 H 95 11/24/17 07:37 11/24/17 07:37 11/24/17 07:37 11/24/17 09:16 11/24/17 07:37 Laboratory Results 11/21/17 06:45 11/21/17 06:45 ICD10 Worksheet Patient Problems: Problems Problem Status Onset Abdominal pain Acute Arthrodesis status Acute Back pain Acute Cervical spine degeneration Acute Chronic abdominal pain Acute Constipation Acute Dehydration Acute Diarrhea Acute Fall at home Acute Hyponatremia Acute Hyponatremia Acute Lower abdominal pain Acute Lumbar radiculopathy Acute Multiple fractures of ribs Acute Pneumothorax Acute Spinal stenosis of cervical region Acute
--- NOTE | 2017-11-24 15:05 | ASMTCMCOM ---
CM Note CM Note Notes: Pt requests referral to [facility]; [facility] pt and Adelina carias [facility] met w pt today. D/c plan of care: [facility] SNF when medically stable. Date Signed: 11/24/2017 03:04 PM Electronically Signed By:REA Odom
[2017-11-24] MEDS ORDERED: DIAZEPAM 5 MG TAB PO ONE (17:45)
[2017-11-24] MEDS: ATORVASTATIN CALCIUM 40 MG TAB PO SCH (18:18)
[2017-11-25] MEDS: HYDROCODONE/APAP 5/325 TAB PO PRN ×4 (03:11→16:24)
[2017-11-25] MEDS: CEPHALEXIN 500 MG CAP PO SCH ×2 (05:43→11:12)
--- NOTE | 2017-11-25 08:23 | NEUSURGPN ---
Date of Surgery: 11/21/17 Post Op Day: 4 Assessment/Plan: Assessment: 77 yo female s/p thoracic laminectomy for SCS paddle lead trial POD# 4 Plan: - continue neuro checks - pain control, slightly improved since yesterday - Continue to monitor pain in legs now that spinal cord stim trial has been turned on. - Patient discussed with Dr Jacobo - PT/OT - Case management consult for placement-to occur today - dc paperwork completed - Please call neurosurgery with any questions/concerns Subjective: Awake and alert. NAD. Eating/drinking and voiding. No f/c/n/v/d. No vizcarra/neck/ chest/abd or gu complaints. Objective: Incisional dressing c/d/i. MAEx4 5/5 and equal in BUE and BLE. AAO x 3 PERRLA Neuro Check Frequency: per routine Urinary Catheter in Place: No - Physician Discussed Patient with : Donnell Neurosurgery Physical Exam - Vitals, I&O, Labs I and O 11/24/17 11/25/17 11/26/17 05:59 05:59 05:59 Intake Total 450 1400 Output Total 350 Balance 450 1050 Intake: Oral (ml) 450 1400 Output: Urine (ml) 350 Toilet 350 Other: Intake Quantity Yes Yes Sufficient Number of Voids Toilet 1 1 Vital Signs Temp Pulse Resp BP Pulse Ox 36.5 C 83 16 139/68 H 90 L 11/25/17 00:00 11/25/17 07:30 11/25/17 00:00 11/25/17 07:30 11/25/17 00:00 Laboratory Results 11/21/17 06:45 11/21/17 06:45 ICD10 Worksheet Patient Problems: Problems Problem Status Onset Abdominal pain Acute Arthrodesis status Acute Back pain Acute Cervical spine degeneration Acute Chronic abdominal pain Acute Constipation Acute Dehydration Acute Diarrhea Acute Fall at home Acute Hyponatremia Acute Hyponatremia Acute Lower abdominal pain Acute Lumbar radiculopathy Acute Multiple fractures of ribs Acute Pneumothorax Acute Spinal stenosis of cervical region Acute
--- NOTE | 2017-11-25 08:30 | PDIAF ---
- Diagnosis Diagnosis: SCS TRIAL, chronic pain Code Status: Full Code - Medication Management Discharge Medications: Medications to Continue on Transfer Atorvastatin Calcium [Lipitor 40 mg (*)] 40 mg PO HS 07/01/16 [Last Taken ] Cholecalciferol Vit D3 [Vitamin D3 (*)] 2,000 units PO DAILY 07/01/16 [Last Taken 11/20/17] Omeprazole 20 mg PO DAILY 07/01/16 [Last Taken 11/20/17] amLODIPine BESYLATE [Norvasc 5 mg (*)] 5 mg PO DAILY 07/01/16 [Last Taken ] Hydrochlorothiazide [HCTZ (*)] 25 mg PO DAILY #30 tab 07/02/16 [Last Taken 11/20] Diazepam [Valium 5 MG (*)] 5 mg PO DAILY PRN #14 tab 09/15/16 [Last Taken 17:30] Acetaminophen [Tylenol ES 500 mg (*)] 500 - 1,000 mg PO TID PRN 11/24/16 [Last Taken 11/20/17 11:00] Potassium Cl [Klor-Con 10 meq (RX)] 10 meq PO DAILY 11/24/16 [Last Taken ] Cephalexin [Keflex] 500 mg PO Q6HRS #32 capsule 11/21/17 [Last Taken Unknown] Methocarbamol [Robaxin 750 mg (*)] 750 mg PO QID PRN #40 tab 11/21/17 [Last Taken Unknown] Polyethylene Glycol 3350 [Miralax 17 gm (*)] 17 gm PO DAILY 11/21/17 [Last Taken Unknown] traMADol 50 mg PO Q6HRS PRN #60 11/21/17 [Last Taken Unknown] Acetaminophen [Tylenol 325mg (*)] 650 mg PO Q4HRS PRN tab 11/25/17 [Last Taken Unknown] Cephalexin [Keflex (*)] 500 mg PO Q6HRS #0 cap 11/25/17 [Last Taken Unknown] Diazepam [Valium 5 MG (*)] 5 mg PO Q8HRS PRN tab 11/25/17 [Last Taken Unknown] Hydrocodone/APAP 5/325 [Blanchard 5/325 (*)] 1 - 2 tab PO Q4HRS PRN tab 11/25/17 [ Last Taken Unknown] Methocarbamol [Robaxin 750 mg (*)] 750 mg PO TID tab 11/25/17 [Last Taken Unknown] Polyethylene Glycol 3350 [Miralax 17 gm (*)] 17 gm PO DAILY pkt 11/25/17 [Last Taken Unknown] traMADol [Ultram 50 mg (*)] 50 mg PO Q6HRS PRN tab 11/25/17 [Last Taken Unknown ] Fpc Antibiotics: keflex as already written Discharge Medications: Refer to the Discharge Home Medication list for PRN reason. PICC Care - Routine: N/A - Orders Services needed: Registered Nurse, Certified Annual Giving Director, Master Processing Specialist , Physical Therapy, Occupational Therapy Oxygen: to keep O2 sat above 90% Diet Recommendation: no restrictions on diet Diet Texture: Regular Texture Diet Additional Instructions: 1. Follow up with Dr. Jacobo in 1 week for part 2 of surgery. 2. Refrain from lifting more than 10 pounds or bending/twisting. 3. Ok to take Tylenol and Tramadol as needed. Use Robaxin as a muscle relaxant as needed. 4. Refrain from showering and getting incisions wet. Change dressings as needed. 5. Call Dr. Jacobo's office with any questions/concerns. - Follow Up Care Current Providers and Referrals: Darien Holliday MD [Primary Care Provider] - Diandra Jacobo DO [Doctor of Osteopathy] - (follow up as directed for stage 2)
[2017-11-25] MEDS: POLYETHYLENE GLYCOL 3350 17 GM PKT PO SCH (09:54)
[2017-11-25] MEDS: amLODIPine BESYLATE 5 MG TAB PO SCH (09:54)
[2017-11-25] MEDS: POTASSIUM CL 10 MEQ TAB PO SCH (09:55)
[2017-11-25] MEDS: PANTOPRAZOLE SODIUM 40 MG TAB PO SCH (09:55)
[2017-11-25] MEDS: HYDROCHLOROTHIAZIDE 25 MG TAB PO SCH (09:55)
[2017-11-25] MEDS: METHOCARBAMOL 750 MG TAB PO SCH ×2 (09:55→16:24)
[2017-11-25 10:35] VITALS: BP 143/64
[2017-11-25] MEDS ORDERED: MAGNESIUM HYDROXIDE 30 ML UDCUP PO PRN (10:58)
[2017-11-25] MEDS ORDERED: POLYETHYLENE GLYCOL 3350 17 GM PKT PO PRN (10:58)
[2017-11-25] MEDS ORDERED: BISACODYL 10 MG SUPP PR PRN (10:58)
[2017-11-25] MEDS ORDERED: LACTULOSE 20 GM/30 ML UDCUP PO PRN (10:58)
[2017-11-25] MEDS ORDERED: MAGNESIUM CITRATE 300 ML BOTTLE PO ONE (11:00)
[2017-11-25] MEDS ORDERED: SENNOSIDES/DOCUSATE SODIUM TAB PO SCH (11:00)
[2017-11-25] MEDS: CHOLECALCIFEROL VIT D3 1,000 UNITS TAB PO SCH (11:12)
[2017-11-25] MEDS: DIAZEPAM 5 MG TAB PO PRN (11:24)
--- NOTE | 2017-11-25 16:04 | ASMTCMCOM ---
CM Note CM Note Notes: Pt medically stable for d/c to [facility] and did have a bm. Orders sent in [employer]. Adelina with scheduled [facility] van transport for 1615. KENNEY Álvarez to call report. Date Signed: 11/25/2017 04:03 PM Electronically Signed By:REA Odom
--- NOTE | 2017-11-26 14:40 | ASDISCHSUM ---
Discharge Information Plan Status:SNF Medically Cleared to Leave: Discharge Date:11/25/2017 04:47 PM D/C Disposition:Long-Term Facility ADT D/C Disposition:Other Rehab, Not [facility] Projected Discharge Date:11/25/2017 11:00 AM Transportation at D/C: Discharge Delay Reason: Follow-Up Date:11/25/2017 11:00 AM Discharge Slot: Final Diagnosis: Placement Information Referral Type:*Long Term/SNF Referral ID:[id number] Provider Name:[facility] Address 1:[address] Address 2: City:[place] Selection Factors: State:[place] Patient Contact Information Contact Name:LEN Relationship: Address:[address] City:[place] Alternate Phone: State/Zip Code:[place] [address] Email: Financial Information Financial Class:Medicare Primary Plan Desc:MEDICARE INPATIENT Primary Plan Number:[id number] Secondary Plan Desc:[employer]/MDR SUPPLEMENT Secondary Plan Number:[id number] Assessment Information [facility] CM Progress Note CM Note CM Note Notes: Pt admitted for stimulator placement. discussed case w/PA, Tanesha Doyle, today who felt pt may need SNF. Pt lives at home w/. PT recommending HHC vs SNF. will see how pt does over next day or two and determine dc plan. CM not able to meet w/pt today, will need to do this on friday. Date Signed: 11/22/2017 05:49 PM Electronically Signed By:Kamilla Ha RN [facility] CM Progress Note CM Note CM Note Notes: Pt requests referral to [facility]; accepts pt and Adelina carias met w pt today. D/c plan of care: [facility] when medically stable. Date Signed: 11/24/2017 03:04 PM Electronically Signed By:REA Odom [facility] CM Progress Note CM Note CM Note Notes: Pt medically stable for d/c to [facility] and did have a bm. Orders sent in [employer]. Adelina with [facility] scheduled van transport for 1615. KENNEY Álvarez to call report. Date Signed: 11/25/2017 04:03 PM Electronically Signed By:REA Odom Intervention Information Intervention Type:*IM-Signed Date of Service:11/25/2017 01:02 PM Patient Type:Inpatient Staff Member:Malena Hong Hours: Discipline: Severity: Comment:
--- NOTE | 2017-11-27 18:34 | GHP ---
[f rep st] HISTORY AND PHYSICAL DATE OF PROCEDURE: Tuesday, November 28, 2017. HISTORY OF PRESENT ILLNESS: The patient is a 77-year-old female with chronic bilateral leg pain. Her leg pain is circumferential. She denies any lower extremity numbness or tingling. No weakness. She a lso has back pain. She rates her back and leg pain at 3/10 to 4/10 during the day 6/10 to 7/10 at [facility]. Last week, she underwent a thoracic laminectomy for spinal cord stimulator paddle lead trial for relief of her chronic pain. She presents today to proceed with stage II of that procedure. PAST MEDICAL HISTORY: Anxiety, constipation, cystitis, hypokalemia, urinary tract infection, lumbar radiculopathy, dehydration, cervical stenosis. PAST SURGICAL HISTORY: Thoracic laminectomy for spinal cord stimulator paddle lead trial, posterior C2-7 fusion in August [address] Delcid. SOCIAL HISTORY: The patient denies current use of tobacco and is a former smoker. Admits to alcohol use. FAMILY HISTORY: No pertinent neurosurgical family history. ALLERGIES: Include MARCIANO inhibitors, nitrofurantoin macrocrystal, sulfa. CURRENT HOME MEDICATIONS: Potassium, MiraLAX, omeprazole, amlodipine, hydrochlorothiazide, Valium, v itamin D3, atorvastatin, acetaminophen, tramadol, polyethylene glycol, Robaxin, [place], Keflex, Tyleno l. REVIEW OF SYSTEMS: Patient denies chest pain, shortness of breath, abdominal pain, nausea, vomiting, fevers, or chills. PHYSICAL EXAM: Patient was seen and examined, appears to be no apparent distress. Mood and affect ap propriate. Alert and oriented. Muscle strength is well preserved in upper and lower extremities at 5/ 5. Sensation is intact to light touch. Incision clean,dry, intact. ASSESSMENT AND PLAN: In summary, the patient is a 77-year-old female status post thoracic laminectom y for spinal cord stimulator paddle lead trial 1 week ago for chronic back and bilateral lower extrem ity pain. Over the past several days, she has noticed improvement in her chronic day-to-day pain with at least 50% reduction. It was difficult for the first few days of the trial to determine if it was a successful trial due to the surgical pain. However, this has now eased and the patient has been abl e to tell that the spinal cord stimulator is in fact improving her day-to-day chronic pain as she is up walking around. We will proceed today with stage II of the spinal cord stimulator implant with imp lant of the generator. The risks, benefits, and procedure were discussed in detail with the patient. The patient has agreed and consented. /[id number]/MODL
== END 2017-11-25 16:47 | DRG 30 ==
LOC: FSGY 05:38 → F3E 13:28 → OBSVTOIN 13:28 → F3N 14:27
PROVIDERS: ADMIT Neurological Surgery; ATTEND Neurological Surgery
PROC: 00HU0MZ Insertion of Neurostimulator Lead into Spinal Canal, Open Approach (ICD-10-PCS; principal; 2017-11-21 07:15)
DX: G89.4 Chronic pain syndrome (principal); Z98.1 Arthrodesis status; Z87.891 Personal history of nicotine dependence; M41.9 Scoliosis, unspecified
CPT/HCPCS: 97110-GP; 97116-GP; 97166-GO; 97530-GP; 97535-GO; C1778; C1883; G8987-GO-CJ; G8988-GO-CI; J0690; J2704; J3010

== ENCOUNTER 2017-11-28 06:06 | Day surgery (SDC) | payer OTHER, MEDICARE ==
[2017-11-28] MEDS ORDERED: ceFAZolin 2 GM/SWFI 2 GM/20 ML SYR IVP ONE (06:39)
[2017-11-28] MEDS ORDERED: LR 1,000 ML IV ONE (06:41)
[2017-11-28] MEDS ORDERED: LIDOCAINE 1% 2 ML INJ ID PRN (06:41)
--- NOTE | 2017-11-28 06:47 | PDANEPAE ---
ANE History of Present Illness 77 year old female for placement of spinal cord stimulator. ANE Past Medical History - Cardiovascular History Hx Hypertension: Yes Hx Arrhythmias: No Hx Chest Pain: No Hx Coronary Artery / Peripheral Vascular Disease: No Hx CHF / Valvular Disease: No Hx Palpitations: No - Pulmonary History Hx COPD: No Hx Asthma/Reactive Airway Disease: No Hx Recent Upper Respiratory Infection: No Hx Oxygen in Use at Home: No Hx Sleep Apnea: No Sleep Apnea Screening Result - Last Documented: Negative - Neurologic History Hx Cerebrovascular Accident: No Hx Seizures: No Hx Dementia: No - Endocrine History Hx Diabetes: No Obesity: no - Renal History Hx Renal Disorders: No - Liver History Hx Hepatic Disorders: No - Neurological & Psychiatric Hx Hx Neurological and Psychiatric Disorders: Yes Neurological / Psychiatric History Comment: ANXIETY - VALIUM RARE - Cancer History Hx Cancer: Yes 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 HYSTERECTOMY. CHULA REJI. BUNION R 06/2017. CERVICAL FUSION 08/2016 ANE Review of Systems Review of Systems: - Exercise capacity Exercise capacity: <4 METS METS (RN): 4 METS ANE Patient History - Allergies Allergies/Adverse Reactions: MARCIANO Inhibitors Allergy (Verified 11/27/17 17:11) COUGH nitrofurantoin macrocrystalline [From Macrodantin] Allergy (Verified 11/27/17 17 :11) Unknown phenazopyridine HCl [From Pyridium] Allergy (Verified 11/27/17 17:11) Unknown Sulfa (Sulfonamide Antibiotics) Allergy (Verified 11/27/17 17:11) Rash DOGS/CATS Allergy (Uncoded 11/27/17 17:11) ITCHY EYES/SCRATCHY THROAT/RUNNY NOSE ENVIRONMENTAL Allergy (Uncoded 11/27/17 17:11) ITCHY EYES/SCRATCHY THROAT/RUNNY NOSE SEASONAL Allergy (Uncoded 11/27/17 17:11) ITCHY EYES/RUNNY NOSE/SCRATCHY THROAT opiates Adverse Reaction (Uncoded 11/27/17 17:11) Constipation - Home Medications Home medications: home medication list seen and reviewed Home Medications: Atorvastatin Calcium [Lipitor 40 mg (*)] 40 mg PO HS 07/01/16 [Last Taken ] Cholecalciferol Vit D3 [Vitamin D3 (*)] 2,000 units PO DAILY 07/01/16 [Last Taken 11/20/17] Omeprazole 20 mg PO DAILY 07/01/16 [Last Taken 11/20/17] amLODIPine BESYLATE [Norvasc 5 mg (*)] 5 mg PO DAILY 07/01/16 [Last Taken ] Acetaminophen [Tylenol ES 500 mg (*)] 500 - 1,000 mg PO TID PRN 11/24/16 [Last Taken 11/20/17 11:00] Potassium Cl [Klor-Con 10 meq (RX)] 10 meq PO DAILY 11/24/16 [Last Taken ] Polyethylene Glycol 3350 [Miralax 17 gm (*)] 17 gm PO DAILY 11/21/17 [Last Taken Unknown] - NPO status NPO Status: no food or drink >8 hours - Anes Hx Anes Hx: no prior problems - Smoking Hx Smoking Status: Never smoked Marijuana use: No - Alcohol Use Alcohol Use: None - Family Anes Hx Family Anes Hx: neg - N/A Family Hx Anesthesia Complications: NEG ANE Labs/Vital Signs - Vital Signs Vital Signs: reviewed preoperatively; see RN documention for details Height: 170.18 cm Weight: 50.802 kg ANE Physical Exam - Airway Neck exam: decreased ROM Mallampati Score: Class 3 Mouth exam: normal dental/mouth exam, poor dentition - Pulmonary Pulmonary: no respiratory distress - Cardiovascular Cardiovascular: regular rate and rhythym - ASA Status ASA Status: III ANE Anesthesia Plan Anesthesia Plan: general endotracheal anesthesia Total IV Anesthesia: No
[2017-11-28] MEDS ORDERED: MIDAZOLAM 2 MG/2 ML VIAL IVP ONE ×2 (07:03→09:03)
[2017-11-28] MEDS ORDERED: CHLORHEXIDINE GLUC HIBICLENS 118 ML BTL TP ONE (07:34)
[2017-11-28] MEDS ORDERED: BUPIVACAINE 0.25% 30 ML SDV ONE (07:35)
[2017-11-28] MEDS ORDERED: GENTAMICIN SULFATE 80 MG/2 ML VIAL ONE (07:35)
--- NOTE | 2017-11-28 08:08 | PDGENHP ---
History and Physical - History of Present Illness HISTORY AND PHYSICAL DATE OF PROCEDURE: Tuesday, November 28, 2017. HISTORY OF PRESENT ILLNESS: The patient is a 77-year-old female with chronic bilateral leg pain. Her leg pain is circumferential. She denies any lower extremity numbness or tingling. No weakness. She also has back pain. She rates her back and leg pain at 3/10 to 4/10 during the day 6/10 to 7/10 at night. Last week, she underwent a thoracic laminectomy for spinal cord stimulator paddle lead trial for relief of her chronic pain. She presents today to proceed with stage II of that procedure. PAST MEDICAL HISTORY: Anxiety, constipation, cystitis, hypokalemia, urinary tract infection, lumbar radiculopathy, dehydration, cervical stenosis. PAST SURGICAL HISTORY: Thoracic laminectomy for spinal cord stimulator paddle lead trial, posterior C2-7 fusion in August [address] Delcid. SOCIAL HISTORY: The patient denies current use of tobacco and is a former smoker. Admits to alcohol use. FAMILY HISTORY: No pertinent neurosurgical family history. ALLERGIES: Include MARCIANO inhibitors, nitrofurantoin macrocrystal, sulfa. CURRENT HOME MEDICATIONS: Potassium, MiraLAX, omeprazole, amlodipine, hydrochlorothiazide, Valium, vitamin D3, atorvastatin, acetaminophen, tramadol, polyethylene glycol, Robaxin, [place], Keflex, Tylenol. REVIEW OF SYSTEMS: Patient denies chest pain, shortness of breath, abdominal pain, nausea, vomiting, fevers, or chills. PHYSICAL EXAM: Patient was seen and examined, appears to be no apparent distress. Mood and affect appropriate. Alert and oriented. Muscle strength is well preserved in upper and lower extremities at 5/5. Sensation is intact to light touch. Incision clean,dry, intact. ASSESSMENT AND PLAN: In summary, the patient is a 77-year-old female status post thoracic laminectomy for spinal cord stimulator paddle lead trial 1 week ago for chronic back and bilateral lower extremity pain. Over the past several days, she has noticed improvement in her chronic day-to-day pain with at least 50% reduction. It was difficult for the first few days of the trial to determine if it was a successful trial due to the surgical pain. However, this has now eased and the patient has been able to tell that the spinal cord stimulator is in fact improving her day-to-day chronic pain as she is up walking around. We will proceed today with stage II of the spinal cord stimulator implant with implant of the generator. The risks, benefits, and procedure were discussed in detail with the patient. The patient has agreed and consented. History Information - Allergies/Home Medication List Allergies/Adverse Reactions: MARCIANO Inhibitors Allergy (Verified 11/27/17 17:11) COUGH nitrofurantoin macrocrystalline [From Macrodantin] Allergy (Verified 11/27/17 17 :11) Unknown phenazopyridine HCl [From Pyridium] Allergy (Verified 11/27/17 17:11) Unknown Sulfa (Sulfonamide Antibiotics) Allergy (Verified 11/27/17 17:11) Rash DOGS/CATS Allergy (Uncoded 11/27/17 17:11) ITCHY EYES/SCRATCHY THROAT/RUNNY NOSE ENVIRONMENTAL Allergy (Uncoded 11/27/17 17:11) ITCHY EYES/SCRATCHY THROAT/RUNNY NOSE SEASONAL Allergy (Uncoded 11/27/17 17:11) ITCHY EYES/RUNNY NOSE/SCRATCHY THROAT opiates Adverse Reaction (Uncoded 11/27/17 17:11) Constipation Home Medications: Atorvastatin Calcium [Lipitor 40 mg (*)] 40 mg PO HS 07/01/16 [Last Taken ] Cholecalciferol Vit D3 [Vitamin D3 (*)] 2,000 units PO DAILY 07/01/16 [Last Taken 11/20/17] Omeprazole 20 mg PO DAILY 07/01/16 [Last Taken 11/20/17] amLODIPine BESYLATE [Norvasc 5 mg (*)] 5 mg PO DAILY 07/01/16 [Last Taken ] Acetaminophen [Tylenol ES 500 mg (*)] 500 - 1,000 mg PO TID PRN 11/24/16 [Last Taken 11/20/17 11:00] Potassium Cl [Klor-Con 10 meq (RX)] 10 meq PO DAILY 11/24/16 [Last Taken ] Polyethylene Glycol 3350 [Miralax 17 gm (*)] 17 gm PO DAILY 11/21/17 [Last Taken Unknown] I have personally reviewed and updated: medical history, social history, surgical history - Past Medical History Additional medical history: Non hodgkin's lymphoma, not active. allergic rhinitis. HTN. HLD. daily alcohol use - Surgical History Additional surgical history: hysterectomy. b/l cataract repair. b/l hip replacement - Family History Positive for: non-pertinent - Social History Smoking Status: Never smoked Alcohol Use: None Additional social history: Pt lives with , is active and independent in all ADLs. Review of Systems Review of Systems: Physical Exam Physical Exam: Temp Pulse Resp BP Pulse Ox 36.5 C 80 12 162/78 H 98 11/28/17 07:08 11/28/17 07:08 11/28/17 07:08 11/28/17 07:08 11/28/17 07:08
[2017-11-28] MEDS ORDERED: fentaNYL 100 MCG/2 ML INJ ONE (08:15)
[2017-11-28] MEDS ORDERED: ROCURONIUM 50 MG/5 ML VIAL ONE (08:15)
[2017-11-28] MEDS ORDERED: LIDOCAINE 2% 5 ML SDV ONE (08:15)
[2017-11-28] MEDS ORDERED: PROPOFOL 200 MG/20 ML VIAL ONE (08:15)
[2017-11-28] MEDS ORDERED: DEXAMETHASONE 4 MG/ML VIAL ONE (08:22)
[2017-11-28] MEDS ORDERED: SUGAMMADEX SODIUM 200 MG/2 ML VIAL IVP ONE (08:22)
[2017-11-28] MEDS ORDERED: ONDANSETRON 4 MG/2 ML VIAL ONE (08:22)
[2017-11-28] MEDS ORDERED: ACETAMINOPHEN 500 MG TAB PO PRN (09:03)
[2017-11-28] MEDS ORDERED: ONDANSETRON 4 MG/2 ML VIAL IVP PRN (09:03)
[2017-11-28] MEDS ORDERED: oxyCODONE IR 5 MG TAB PO PRN (09:03)
[2017-11-28] MEDS ORDERED: HYDROmorphONE/DILAUDID 1 MG/ML INJ IVP PRN (09:03)
[2017-11-28] MEDS ORDERED: DIAZEPAM 5 MG/ML 1 ML SYR IVP PRN (09:03)
[2017-11-28] MEDS ORDERED: epHEDrine SULFATE 10 MG/ML SYR IVP PRN (09:03)
[2017-11-28] MEDS ORDERED: LR 500 ML IV PRN (09:03)
[2017-11-28] MEDS ORDERED: PHENYLEPHRINE HCL 100 MCG/ML SYR IVP PRN (09:03)
[2017-11-28] MEDS ORDERED: NALOXONE HCL 0.4 MG/ML INJ IVP PRN (09:03)
[2017-11-28] MEDS ORDERED: fentaNYL 100 MCG/2 ML INJ IVP PRN (09:03)
--- NOTE | 2017-11-28 09:46 | GOP ---
[f rep st] OPERATIVE REPORT DATE OF OPERATION: 11/28/2017 SURGEON: Diandra Jacobo DO NEUROSURGEON: Diandra Jacobo DO SUB MASTER: LENO Ratliff PREOPERATIVE DIAGNOSIS: 1. Chronic pain syndrome. 2. Successful spinal cord stimulator trial. POSTOPERATIVE DIAGNOSIS: 1. Chronic pain syndrome. 2. Successful spinal cord stimulator trial. PROCEDURE PERFORMED: Placement of spinal cord stimulator generator to right hip with connection to i ndwelling paddle lead. FINDINGS: SPECIMENS: None. ESTIMATED BLOOD LOSS: 10 mL. INDICATIONS: This is a patient who underwent a thoracic laminectomy, placement of spinal cord stimul ator, paddle lead for trial. She got at least 50% relief of her pain with her trial and comes today for generator replacement. I did have an extensive discussion with the patient that she seems to be overly focused on her pain, and although she did achieve a successful trial that she should continue to focus on being more active and not focus on her pain as a significant portion of this is anxiety. She and her both expressed understanding of this. She was identified, consented. Sites wer e marked. She had marked her pant line prior to surgery. DESCRIPTION OF PROCEDURE: Brought to the operating room, anesthetized under general endotracheal tub e anesthesia, rolled onto the OR bed with a Alejandro frame. All pressure points were appropriately pad ded. Sutures were removed from the thoracic spine and she was prepped and draped in the usual steril e fashion. Incision was made at the thoracic spine with a 10 blade and at the hip with a 10 blade and a pocket w as created at the hip with blunt dissection. The lead and extension were brought up and the extensio n was cut at the distal end and pulled out from underneath the drapes. The lead extension sutures we re cut with 15 blade and the boot was retracted. Using the torque wrench, removed the boot and the l ead extension caps and discarded them, tunneled up in a single pass from the hip to the thoracic spin e and brought the lead down and out, leaving a strain relief loop at the top and placing the leads in the appropriate position in the generator. The impedances were checked, all impedances were good. They were locked down. The impedances were rechecked. All impedances were good. Sutured the genera tor to the hip with a 2-0 silk stitch at 2 positions and copiously irrigated both incisions with over a liter of gentamicin infused saline. The fascia was closed with 2-0 Vicryl pop-offs at both incisi ons. At the thoracic spine, 3-0 nylon was placed in the skin at the hip, 3-0 subcutaneous stitches w ere placed and a 4-0 running Monocryl and Steri-Strips. The wound at the thoracic spine was dressed with gauze and Tegaderm. The wound at the hip was dressed with gauze and a Tegaderm. The patient to lerated procedure well. All impedances were good. There were no complications. FLUIDS: 800 mL of crystalloid. URINE OUTPUT: None. DRAINS: None. COMPLICATIONS: None. /[id number]/MODL
[2017-11-28 11:24] VITALS: BP 168/75
--- NOTE | 2017-11-28 15:07 | POSTANESTH ---
Post Anesthetic Evaluation Cardiovascular Status: Normal, Stable, Similar to Pre-Op Cond Respiratory Status: Normal, Stable, Similar to Pre-op Cond. Level of Consciousness/Mental Status: Can Participate in Eval, Alert and Oriented Pain Control: Adequate, Prn Tx Ordered Nausea/Vomiting Control: Adequate, Prn Tx Ordered Complications Possibly Related to Anesthesia: None Noted
== END 2017-11-28 11:25 | disposition home or self-care (01) ==
LOC: FSGY 06:06
PROVIDERS: ATTEND Neurological Surgery
PROC: 0JH70MZ Insertion of Stimulator Generator into Back Subcutaneous Tissue and Fascia, Open Approach (ICD-10-PCS; principal; 2017-11-28 08:15)
DX: G89.4 Chronic pain syndrome (principal); M54.16 Radiculopathy, lumbar region; M48.02 Spinal stenosis, cervical region; F41.9 Anxiety disorder, unspecified; I10 Essential (primary) hypertension; E78.5 Hyperlipidemia, unspecified; Z98.1 Arthrodesis status; Z85.72 Personal history of non-Hodgkin lymphomas; Z96.643 Presence of artificial hip joint, bilateral
CPT/HCPCS: 63685; 97161; G8978; G8979; C1787; C1820; J0171; J0690; J1100; J1580; J2250; J2405; J2704; J3010

== ENCOUNTER 2017-12-24 02:56 | Emergency (ER) | payer OTHER, MEDICARE ==
[2017-12-24 03:24] LABS: PLATELET COUNT 236 10^3/uL (150-400)
[2017-12-24] MEDS ORDERED: traMADol 50 MG TAB PO ONE (03:32)
[2017-12-24] MEDS ORDERED: KETOROLAC 15 MG/1 ML SDV IVP ONE (03:33)
--- NOTE | 2017-12-24 03:34 | EDPHY ---
H & P Stated Complaint: bilateral lower leg pain post spinal sx Time Seen by Provider: 12/24/17 03:00 HPI/ROS: HPI The patient presents with worsening of her chronic leg pain. She is brought in by ambulance from her home. She underwent spinal cord stimulator placement on November [address] Jacobo. She feels as if the device is not helping her and she reports that her pain is worse. It is bilateral, aching, occasionally worse with walking. At home she is taking Tylenol, last dose at midnight, ibuprofen about 12 hr ago and a dose of tramadol at 4:00 p.m.. She is not sure what to do about her pain and seems quite frustrated. She denies any numbness or tingling of her legs. She says when the stimulator is on a higher dose she sometimes feels some tingling. She has not had any falls. She is followed by her primary care doctor, [facility], and has a visiting nurse. She was at [facility] for about 1 week recently. REVIEW OF SYSTEMS Constitutional: No fever, no chills. Eyes: No discharge. ENT: No sore throat. Cardiovascular: No chest pain, no palpitations. Respiratory: No cough, no shortness of breath. Gastrointestinal: No abdominal pain, no vomiting. Genitourinary: No hematuria. Musculoskeletal: No back pain. Skin: No rashes. Neurological: No headache. PMHx: Chronic pain syndrome with recent spinal cord stimulator placed Soc Hx: Housed with her who helps in her care PHYSICAL General Appearance: Alert, no distress Eyes: Pupils equal and round no pallor or injection ENT, Mouth: Mucous membranes moist Respiratory: There are no retractions, lungs are clear to auscultation Cardiovascular: Regular rate and rhythm Gastrointestinal: Abdomen is soft and non-tender, no masses, bowel sounds normal Neurological: A&O, moves all extremities Skin: Warm and dry, no rashes Musculoskeletal: Neck is supple non tender Extremities: symmetrical, full range of motion Psychiatric: Patient is oriented X 3, there is no agitation Source: Patient, EMS, Old records Exam Limitations: No limitations - Personal History Current Tetanus/Diphtheria Vaccine: Yes Tetanus Vaccine Date: 07-15-12 - Medical/Surgical History Hx Asthma: No Hx Chronic Respiratory Disease: No Hx Diabetes: No Hx Cardiac Disease: No Hx Renal Disease: No Hx Cirrhosis: No Hx Alcoholism: No Hx HIV/AIDS: No Hx Splenectomy or Spleen Trauma: No Other PMH: 03/2016 Left rib fracture, HTN, Non-Hodkins Lyphoma for 8 years, hysterectomy, bilateral hip replacements. anxiety/NECK SURGERY, lami, spinal cord stimulator - Social History Smoking Status: Never smoked Constitutional: Initial Vital Signs Temperature (C) 36.7 C 12/24/17 02:58 Heart Rate 83 12/24/17 02:58 Respiratory Rate 16 12/24/17 02:58 Blood Pressure 126/79 H 12/24/17 02:58 O2 Sat (%) 95 12/24/17 02:58 O2 Delivery Mode Room Air Allergies/Adverse Reactions: MARCIANO Inhibitors Allergy (Verified 12/24/17 03:02) COUGH nitrofurantoin macrocrystalline [From Macrodantin] Allergy (Verified 12/24/17 03 :02) Unknown phenazopyridine HCl [From Pyridium] Allergy (Verified 12/24/17 03:02) Unknown Sulfa (Sulfonamide Antibiotics) Allergy (Verified 12/24/17 03:02) Rash nitrofurantoin macrocrystalline Allergy (Unknown, Uncoded 12/09/17 11:55) Unknown phenazopyridine HCl Allergy (Unknown, Uncoded 12/09/17 11:55) Unknown DOGS/CATS Allergy (Uncoded 11/27/17 17:11) ITCHY EYES/SCRATCHY THROAT/RUNNY NOSE ENVIRONMENTAL Allergy (Uncoded 11/27/17 17:11) ITCHY EYES/SCRATCHY THROAT/RUNNY NOSE SEASONAL Allergy (Uncoded 11/27/17 17:11) ITCHY EYES/RUNNY NOSE/SCRATCHY THROAT opiates Adverse Reaction (Uncoded 11/27/17 17:11) Constipation Home Medications: Medication Instructions Recorded Atorvastatin Calcium [Lipitor 40 40 mg PO HS 07/01/16 mg (*)] Cholecalciferol Vit D3 [Vitamin D3 2,000 units PO DAILY 07/01/16 (*)] Omeprazole 20 mg PO DAILY 07/01/16 amLODIPine BESYLATE [Norvasc 5 mg 5 mg PO DAILY 07/01/16 (*)] Diazepam [Valium 5 MG (*)] 5 mg PO DAILY PRN #14 tab 09/15/16 Acetaminophen [Tylenol ES 500 mg 500 - 1,000 mg PO TID PRN 11/24/16 (*)] Potassium Cl [Klor-Con 10 meq (RX)] 10 meq PO DAILY 11/24/16 Polyethylene Glycol 3350 [Miralax 17 gm PO DAILY 11/21/17 17 gm (*)] Cephalexin [Keflex (*)] 500 mg PO Q6HRS #0 cap 11/25/17 Methocarbamol [Robaxin 750 mg (*)] 750 mg PO TID tab 11/25/17 traMADol 12/24/17 Medical Decision Making Differential Diagnosis: This is a 77-year-old female with chronic pain syndrome managed as an outpatient on Tylenol, ibuprofen, tramadol also with recent spinal cord stimulator placement with ongoing and slightly worsening of her chronic pain. As she is taking ibuprofen, Tylenol, tramadol at home though is not maximizing her use of these. She seems at a loss in regards to the pain. She seems disappointed that the spinal cord stimulator is not helping her. On exam, she does not have any neurologic deficits, she does not have any signs of infection or vascular injury. In the emergency department, she was given her home dose of tramadol as well as Toradol. Her pain improved though she did feel woozy. She was given a 500 cc bolus of normal saline. This improved her symptoms. Labs were checked and did reveal hyponatremia on par with prior values from last week. She has a known history of this for several years. Hemoglobin is stable. She initially mentioned that she wanted to go to a long-term, however now she is not sure about this. I explained to her that currently, she does not meet criteria for admission. She says that her has difficulty providing her with adequate care. Her is here and says that he is comfortable taking her home and managing her needs. She was able to walk without any difficulty here. She has an appointment today with her neurosurgeon. I have advised her to keep this follow-up appointment. I have advised her contact her primary care doctor to discuss her medication regimen for pain. I have put in a case management referral. - Data Points Laboratory Results: Laboratory Results 12/24/17 03:10 12/24/17 03:10 12/24/17 12/24/17 03:10 03:10 WBC 5.62 10^3/uL 10^3/uL (3.80-9.50) RBC 3.86 10^6/uL L 10^6/uL (4.18-5.33) Hgb 12.7 g/dL g/dL (12.6-16.3) Hct 35.4 % L % (38.0-47.0) MCV 91.7 fL fL (81.5-99.8) MCH 32.9 pg pg (27.9-34.1) MCHC 35.9 g/dL g/dL (32.4-36.7) RDW 13.3 % % (11.5-15.2) Plt Count 236 10^3/uL 10^3/uL (150-400) MPV 10.0 fL fL (8.7-11.7) Neut % (Auto) 42.2 % % (39.3-74.2) Lymph % (Auto) 47.0 % H % (15.0-45.0) [place] % (Auto) 6.9 % % (4.5-13.0) Eos % (Auto) 3.2 % % (0.6-7.6) Baso % (Auto) 0.5 % % (0.3-1.7) Nucleat RBC Rel Count 0.0 % % (0.0-0.2) Absolute Neuts (auto) 2.37 10^3/uL 10^3/uL (1.70-6.50) Absolute Lymphs (auto) 2.64 10^3/uL 10^3/uL (1.00-3.00) Absolute Monos (auto) 0.39 10^3/uL 10^3/uL (0.30-0.80) Absolute Eos (auto) 0.18 10^3/uL 10^3/uL (0.03-0.40) Absolute Basos (auto) 0.03 10^3/uL 10^3/uL (0.02-0.10) Absolute Nucleated RBC 0.00 10^3/uL 10^3/uL (0-0.01) Immature Gran % 0.2 % % (0.0-1.1) Immature Gran # 0.01 10^3/uL 10^3/uL (0.00-0.10) Sodium 127 mEq/L L mEq/L (135-145) Potassium 3.4 mEq/L L mEq/L (3.5-5.2) Chloride 91 mEq/L L mEq/L (97-110) Carbon Dioxide 27 mEq/l mEq/l (22-31) Anion Gap 9 mEq/L mEq/L (8-16) BUN 13 mg/dL mg/dL (7-23) Creatinine 0.5 mg/dL L mg/dL (0.6-1.0) Estimated GFR > 60 Glucose 97 mg/dL mg/dL (70-100) Calcium 9.2 mg/dL mg/dL (8.5-10.4) Medications Given: Discontinued Medications Sodium Chloride (Ns) 500 mls @ 1,000 mls/hr IV EDNOW ONE PRN Reason: Protocol Stop: 12/24/17 06:01 Last Admin: 12/24/17 05:39 Dose: 500 mls Ketorolac Tromethamine (Toradol) 15 mg IVP EDNOW ONE Stop: 12/24/17 03:34 Last Admin: 12/24/17 03:39 Dose: 15 mg Tramadol HCl (Ultram) 50 mg PO EDNOW ONE Stop: 12/24/17 03:33 Last Admin: 12/24/17 03:39 Dose: 50 mg Departure - Departure Disposition: Home, Routine, Self-Care Clinical Impression: Leg pain, bilateral, Hyponatremia Condition: Good Instructions: Leg Pain (ED) Additional Instructions: I recommend you take ibuprofen and acetaminophen today. I would hold the tramadol as it seems to be making you woozy. Referrals: Darien Holliday MD [Primary Care Provider] - As per Instructions
[2017-12-24] MEDS ORDERED: NS 500 ML IV ONE (05:32)
[2017-12-24 06:53] VITALS: BP 157/78
== END 2017-12-24 06:51 | disposition home or self-care (01) ==
LOC: EDUNIT#
DX: M79.661 Pain in right lower leg (principal); M79.662 Pain in left lower leg; E87.1 Hypo-osmolality and hyponatremia; I10 Essential (primary) hypertension; E86.9 Volume depletion, unspecified
CPT/HCPCS: 96374; 99284; J1885

== ENCOUNTER → 2018-01-22 | Outpatient (CLI) | payer OTHER, MEDICARE | LOC: BMCIMAGING 11:47 | PROVIDERS: ATTEND Podiatrist Foot & Ankle Surgery | DX: M77.32 Calcaneal spur, left foot (principal) ==

== ENCOUNTER → 2018-04-27 | Outpatient (CLI) | payer OTHER, MEDICARE | LOC: BMCIMAGING 09:55 | PROVIDERS: ATTEND Internal Medicine Rheumatology | DX: Z13.820 Encounter for screening for osteoporosis (principal); M80.08XA Age-related osteoporosis with current pathological fracture, vertebra(e), initial encounter for fracture; Z96.643 Presence of artificial hip joint, bilateral ==

== ENCOUNTER 2018-09-05 13:45 | Emergency (ER) | payer OTHER, MEDICARE ==
--- NOTE | 2018-09-05 14:15 | EDPHY ---
H & P Time Seen by Provider: 09/05/18 13:57 HPI/ROS: CHIEF COMPLAINT: Fall, head injury HISTORY OF PRESENT ILLNESS: Patient is a 78-year-old female with a history of chronic pain, spinal cord stimulator and walker use who presents emergency department after having a mechanical fall. Patient states she was coming down 2 stairs from a restaurant using her walker. She fell backwards striking her head on the landing. She did not lose consciousness. She complains of a bump on the back of her head. She has chronic pain in this fall has exacerbated her underlying pain."My whole body hurts."The patient states she took 500 mg of Tylenol at 11:00 a.m.. She also takes tramadol and ibuprofen at home but has not taken any recently. Patient has had no nausea or vomiting. No focal weakness or numbness. No neck pain. No new back pain. REVIEW OF SYSTEMS: 10 systems were reveiwed and are negative with the exception of the elements mentioned in the history of present illness. Past Medical/Surgical History: Includes chronic pain, rib fracture, hypertension, non-Hodgkin's lymphoma, anxiety Past surgical history: Includes spinal cord stimulator, laminectomy, neck surgery, hysterectomy, bilateral hip replacement Social history: Patient does not smoke Smoking Status: Former smoker Physical Exam: 36.6, 147/84, 82, 18, 95% on room air GENERAL: Tearful and anxious, no acute distress, alert. HEENT: Eyes normal to inspection, normal pharynx, no signs of dehydration. The patient has a small hematoma on the back of her head. No crepitus. No bony deformity NECK: Normal, supple. No spinal tenderness. Surgical scar noted. RESPIRATORY: Clear to auscultation bilaterally, no rales, rhonchi or wheezing. No chest wall tenderness CVS: Regular rate and rhythm, no rubs, murmurs, or gallops. ABDOMEN: Soft, nontender, nondistended, no organomegaly. Benign BACK: Normal to inspection, no CVA tenderness. No spinal tenderness SKIN: Normal color, no rash, warm, dry. No pallor. EXTREMITIES: No pedal edema, no calf tenderness, no Homans sign or cords, no joint swelling. NEURO/PSYCH: Alert and oriented, anxious appearing, normal motor sensory exam. No obvious cranial nerve deficit. Constitutional: Initial Vital Signs Temperature (C) 36.6 C 09/05/18 13:49 Heart Rate 82 09/05/18 13:49 Respiratory Rate 18 09/05/18 13:49 Blood Pressure 147/84 H 09/05/18 13:49 O2 Sat (%) 95 09/05/18 13:49 O2 Delivery Mode Room Air Allergies/Adverse Reactions: MARCIANO Inhibitors Allergy (Verified 09/05/18 13:52) COUGH nitrofurantoin macrocrystalline [From Macrodantin] Allergy (Verified 09/05/18 13 :52) Unknown phenazopyridine HCl [From Pyridium] Allergy (Verified 09/05/18 13:52) Unknown Sulfa (Sulfonamide Antibiotics) Allergy (Verified 09/05/18 13:52) Rash nitrofurantoin macrocrystalline Allergy (Unknown, Uncoded 09/05/18 13:52) Unknown phenazopyridine HCl Allergy (Unknown, Uncoded 09/05/18 13:52) Unknown DOGS/CATS Allergy (Uncoded 09/05/18 13:52) ITCHY EYES/SCRATCHY THROAT/RUNNY NOSE ENVIRONMENTAL Allergy (Uncoded 09/05/18 13:52) ITCHY EYES/SCRATCHY THROAT/RUNNY NOSE SEASONAL Allergy (Uncoded 09/05/18 13:52) ITCHY EYES/RUNNY NOSE/SCRATCHY THROAT opiates Adverse Reaction (Uncoded 09/05/18 13:52) Constipation Home Medications: Medication Instructions Recorded Atorvastatin Calcium [Lipitor 40 40 mg PO HS 07/01/16 mg (*)] Cholecalciferol Vit D3 [Vitamin D3 2,000 units PO DAILY 07/01/16 (*)] Omeprazole 20 mg PO DAILY 07/01/16 amLODIPine BESYLATE [Norvasc 5 mg 5 mg PO DAILY 07/01/16 (*)] Diazepam [Valium 5 MG (*)] 5 mg PO DAILY PRN #14 tab 09/15/16 Acetaminophen [Tylenol ES 500 mg 500 - 1,000 mg PO TID PRN 11/24/16 (*)] Potassium Cl [Klor-Con 10 meq (RX)] 10 meq PO DAILY 11/24/16 Polyethylene Glycol 3350 [Miralax 17 gm PO DAILY 11/21/17 17 gm (*)] Cephalexin [Keflex (*)] 500 mg PO Q6HRS #0 cap 11/25/17 Methocarbamol [Robaxin 750 mg (*)] 750 mg PO TID tab 11/25/17 traMADol 12/24/17 Medical Decision Making - Diagnostics Imaging Results: Imaging Impressions Cervical Spine CT 09/05/18 14:17 Impression: 1. Left sphenoid sinusitis possibly associated with hemorrhage or impacted proteinaceous mucus. 2.? Any clinical concern for an acute nasal fracture 3. No acute intracranial posttraumatic abnormality identified. 2. CT Cervical Spine Without Contrast, 1435 History: Trauma. Mechanical fall. Technique: Multi-slice ultrathin single breath-hold helical CT through the neck from the skull base through the thoracic inlet without contrast. Soft tissue and bone window evaluation is performed. Sagittal and coronal reconstructions are obtained. Images are transferred to the 3-D workstation were right performed a 3-dimensional model and photographed it in order to evaluate the cervical fusion hardware and its integrity. Dose reduction techniques were utilized. Findings: The patient has had prior cervical fusion surgery between C2 and C7 with wide dorsal decompression between C3 and C6. Fusion consists of posterior transpedicular screws and vertical supporting rods all of which appear to be intact. Artifact from the hardware obscures soft tissue detail where it is present. Cervical alignment remains anatomic. There is a 5 mm spondylolisthesis at C7-T1 that appears greater than cervical spine x-rays August 27, 2017 and thoracic MRI November 01, 2017. There is possibly an acute chip fracture associated with the inferior tip of the right C7 inferior articulating facet and there may be a small bone fragment just anterior to this facet joint. This is best seen on sagittal reconstructions. A tiny chip may also be present just anterior to the left facet joints at the same level. There is multilevel degenerative severe disk space narrowing between C5 and T1. Facets are normally aligned with anatomic positioning at C7-T1 secondary to the spondylolisthesis. The skull base - C1 and C1-C2 relationships are normally aligned. 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 The odontoid process is intact. There is no evidence of a prevertebral or epidural hematoma. Impression: 1. Increased spondylolisthesis at C7-T1 since plain films August 27 and thoracic MRI October 2017. If there is concern for instability, lateral cervical flexion extension views or cervical MRI might be considered. There may be acute posttraumatic chips or degenerative calcifications associated with these facet joints described in detail above. If there is concern for instability, then consider lateral flexion-extension views, cervical fluoroscopy and/or cervical MRI. Results discussed with Dr. Hzd at 15:38 PM General information for patients regarding this examination can be found at [email or web address]. If you have questions or comments about this report, please contact me at (hospital) or [phone] (cell). Head CT 09/05/18 14:17 Impression: 1. Left sphenoid sinusitis possibly associated with hemorrhage or impacted proteinaceous mucus. 2.? Any clinical concern for an acute nasal fracture 3. No acute intracranial posttraumatic abnormality identified. 2. CT Cervical Spine Without Contrast, 1435 History: Trauma. Mechanical fall. Technique: Multi-slice ultrathin single breath-hold helical CT through the neck from the skull base through the thoracic inlet without contrast. Soft tissue and bone window evaluation is performed. Sagittal and coronal reconstructions are obtained. Images are transferred to the 3-D workstation were right performed a 3-dimensional model and photographed it in order to evaluate the cervical fusion hardware and its integrity. Dose reduction techniques were utilized. Findings: The patient has had prior cervical fusion surgery between C2 and C7 with wide dorsal decompression between C3 and C6. Fusion consists of posterior transpedicular screws and vertical supporting rods all of which appear to be intact. Artifact from the hardware obscures soft tissue detail where it is present. Cervical alignment remains anatomic. There is a 5 mm spondylolisthesis at C7-T1 that appears greater than cervical spine x-rays August 27, 2017 and thoracic MRI November 01, 2017. There is possibly an acute chip fracture associated with the inferior tip of the right C7 inferior articulating facet and there may be a small bone fragment just anterior to this facet joint. This is best seen on sagittal reconstructions. A tiny chip may also be present just anterior to the left facet joints at the same level. There is multilevel degenerative severe disk space narrowing between C5 and T1. Facets are normally aligned with anatomic positioning at C7-T1 secondary to the spondylolisthesis. The skull base - C1 and C1-C2 relationships are normally aligned. 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 The odontoid process is intact. There is no evidence of a prevertebral or epidural hematoma. Impression: 1. Increased spondylolisthesis at C7-T1 since plain films August 27 and thoracic MRI October 2017. If there is concern for instability, lateral cervical flexion extension views or cervical MRI might be considered. There may be acute posttraumatic chips or degenerative calcifications associated with these facet joints described in detail above. If there is concern for instability, then consider lateral flexion-extension views, cervical fluoroscopy and/or cervical MRI. Results discussed with Dr. Hdz at 15:38 PM General information for patients regarding this examination can be found at [email or web address]. If you have questions or comments about this report, please contact me at [phone](hospital) or [phone] (cell). ED Course/Re-evaluation: The in the emergency department I discussed possible etiologies with the patient. I answered all her questions. Patient was given Tylenol 500 mg orally for pain. Head and C-spine CT were ordered. Head and C-spine CT: Please refer the dictated report by Dr. Reeves. Patient was noted to have sphenoid sinusitis possibly associated with hemorrhage or impacted mucous. The report questions concern for acute nasal fracture. There is no acute intracranial posttraumatic abnormality identified. The patient's cervical spine is noted to show spondylolisthesis at C7-T1. I discussed the results with the patient. On recheck she had no nasal bone tenderness to palpation. She had no cervical spine tenderness to palpation. She was able to range her neck fully. I felt she did not have an acute spinal injury. The patient has no sinus type symptoms. She denies any facial discomfort or recent fever. I do not feel she needs antibiotics at this time. Patient was concern with her pain. She was given ibuprofen 400 mg orally internal 50 mg orally. She takes these medications at home. I answered all her questions. She was given warnings prior to leaving. Differential Diagnosis: My differential includes but is not limited to closed-head injury, scalp hematoma, concussion, subarachnoid hemorrhage, subdural hematoma, epidural hematoma, spinal injury - Data Points Medications Given: Discontinued Medications Acetaminophen (Tylenol) 500 mg PO EDNOW ONE Stop: 09/05/18 14:18 Last Admin: 09/05/18 14:27 Dose: 500 mg Departure - Departure Disposition: Home, Routine, Self-Care Clinical Impression: Fall Qualifiers: Encounter type: initial encounter Qualified Code(s): W19.XXXA - Unspecified fall, initial encounter Head injury Qualifiers: Encounter type: initial encounter Qualified Code(s): S09.90XA - Unspecified injury of head, initial encounter Condition: Fair Instructions: Head Injury (ED), Fall Prevention (ED) Additional Instructions: Return with increasing headache, weakness, numbness, vomiting or any other concerns. Referrals: Darien Holliday MD [Primary Care Provider] - As per Instructions
[2018-09-05] MEDS ORDERED: ACETAMINOPHEN 500 MG TAB PO ONE (14:17)
[2018-09-05] MEDS ORDERED: traMADol 50 MG TAB PO ONE (16:20)
[2018-09-05] MEDS ORDERED: IBUPROFEN 200 MG TAB PO ONE (16:21)
[2018-09-05 16:33] VITALS: BP 133/78
== END 2018-09-05 16:45 | disposition home or self-care (01) ==
DX: S09.90XA Unspecified injury of head, initial encounter (principal); W19.XXXA Unspecified fall, initial encounter; Y92.9 Unspecified place or not applicable; Y99.9 Unspecified external cause status; Y93.9 Activity, unspecified; Z98.1 Arthrodesis status

== ENCOUNTER → 2018-09-15 | Outpatient (CLI) | payer OTHER, MEDICARE | LOC: BMCIMAGING 09:35 | PROVIDERS: ATTEND Internal Medicine | DX: S49.92XA Unspecified injury of left shoulder and upper arm, initial encounter (principal); Y93.9 Activity, unspecified ==

== ENCOUNTER → 2019-01-15 | Outpatient (CLI) | payer OTHER, MEDICARE | LOC: BMCIMAGING 09:44 ==